=== PATIENT | male | born 1980 ===

== ENCOUNTER 2017-07-12 12:13 | Inpatient (IN) | payer OTHER ==
[2017-07-12] MEDS ORDERED: Dextrose 50% SYRINGE Inj (50 ml) ONE ×2 (12:46→12:48)
[2017-07-12] MEDS ORDERED: Dextrose 50% SYRINGE Inj (50 ml) IVP STA ×2 (12:51→12:52)
[2017-07-12] MEDS ORDERED: Sodium Chloride 0.9% 1,000 ML IV STA ×4 (12:52→17:58)
--- NOTE | 2017-07-12 13:09 | ED PDOC ---
HPI: Psych/Substance Abuse Time Seen by Provider: 07/12/17 12:43 Chief Complaint (Nursing): Substance Abuse Chief Complaint (Provider): Substance abuse ED Caveat: Intoxicated History Per: Patient, Other History/Exam Limitations: intoxication Onset/Duration Of Symptoms: Days (x1 prior to arrival) Current Symptoms Are (Timing): Still Present Additional History Per: EMS Additional Complaint(s): Star Bautista is a 36 year old male, with a past history of hypertension, alcohol and drug abuse, who was brought to the emergency department by EMS for public intoxication prior to arrival. EMS report [place] was [place] the [place]. Patient is here with his girlfriend, who states they got in an argument last night and report he didn't eat anything last night or this morning. Patient admits to drinking half a pint of vodka. Full HPI unobtainable due to condition. PMD: None provided. Past Medical History Reviewed: Historical Data, Nursing Documentation, Vital Signs Vital Signs: Last Vital Signs Temp 96.1 F L 07/12/17 12:30 Pulse 77 07/12/17 12:30 Resp 16 07/12/17 12:30 BP 118/84 07/12/17 12:30 Pulse Ox 98 07/12/17 12:30 - Family History Family History: States: Unknown Family Hx - Social History Alcohol: > 2 Drinks/Day - Home Medications Home Medications: Ambulatory Orders Medication Instructions Recorded Acamprosate Calcium 2 cap PO TID 07/12/17 Bupropion HCl [Wellbutrin Sr] 150 mg PO Q12H 07/12/17 Dextroamphetamine/Amphetamine 20 mg PO DAILY 07/12/17 [Adderall Xr 20 mg Capsule] Naltrexone [Revia] 50 mg PO DAILY 07/12/17 Propranolol [Inderal] 10 mg PO TID 07/12/17 Valerian Root 1 cap PO DAILY 07/12/17 Vitamin B Complex 1 tab PO DAILY 07/12/17 traZODone [Desyrel] 50 mg PO HS 07/12/17 - Allergies Allergies/Adverse Reactions: Allergies Allergy/AdvReac Type Severity Reaction Status Date / Time No Known Allergies Allergy Verified 07/12/17 12:29 Review of Systems ROS Statement: Except As Marked, All Systems Reviewed And Found Negative Constitutional: Positive for: Other (alcohol intoxication) Psych: Negative for: Suicidal ideation Physical Exam - Reviewed Nursing Documentation Reviewed: Yes Vital Signs Reviewed: Yes - Physical Exam Appears: Positive for: No Acute Distress Head Exam: Positive for: ATRAUMATIC, NORMAL INSPECTION, NORMOCEPHALIC Skin: Positive for: Normal Color, Warm, Dry Eye Exam: Positive for: Normal appearance Neck: Positive for: Normal, Painless ROM, Supple Respiratory: Positive for: Normal Breath Sounds. Negative for: Respiratory Distress Extremity: Positive for: Normal ROM. Negative for: Pedal Edema, Deformity Neurologic/Psych: Negative for: Motor/Sensory Deficits Comments: arouses to verbal stimuli. Atraumatic. Denies drug use. - Laboratory Results Result Diagrams: 07/13/17 04:30 07/13/17 04:30 - ECG O2 Sat by Pulse Oximetry: 98 (RA) Pulse Ox Interpretation: Normal Medical Decision Making Medical Decision Making: Initial Impression: Alcohol Intoxication Initial Plan: --EKG --Alcohol serum --Comp Metabolic Panel --Drug screen, Urine --Urine dipstick --CBC w/ differential --Dextrose 50% Inj 50 ml IVP --NS IV 1,000ml @ 1,000 mls/hr --reevaluation Scribe Attestation: Documented by Kamari Nixon & Shelia Gaytan, acting as a scribe for Geri Villa MD Provider Scribe Attestation: All medical record entries made by the Scribe were at my direction and personally dictated by me. I have reviewed the chart and agree that the record accurately reflects my personal performance of the history, physical exam, medical decision making, and the department course for this patient. I have also personally directed, reviewed, and agree with the discharge instructions and disposition. ED OBSERVATION Date of observation admission: 07/12/17 Time of observation admission: 13:10 - Observation admission statement Patient is placed on observation because of need: for resolution of acute symptoms - Goals of Observation Goals of Observation: Clinical sobriety - Progress Note Time:: 13:15 Observation Progress Note: Patient remains intoxicated with unsteady gait and slurred speech Progress Note: 07/12/17 Time: 14:45 --Patient is resting. Vital signs are stable. Time: 16:15 --Patient is resting comfortably. No acute changes, vitals are stable. Time: 17:45 --Patient is resting comfortably. --Blood pressure had increased to 102 systolic but despite fluids, has decreased to 90. Code sepsis initiated. Time: 17:50 --Discussed case with blue line trimmer, Dr. Rodriguez, who accepted patient to ICU Time: 19:00 --Patient refusing central line placement --Levophed changed to Dopamine drip for blood pressure Disposition - Clinical Impression Clinical Impression: Septic shock - Patient ED Disposition Is Patient to be Admitted: Yes - Disposition Disposition Time: 12:52 Condition: GUARDED - Pt Status Changed To: Hospital Disposition Of: Inpatient - Admit Certification Admit to Inpatient:: After my assessment, the patient will require hospitalization for at least two midnights. This is because of the severity of symptoms shown, intensity of services needed, and/or the medical risk in this patient being treated as an outpatient. - POA Present On Arrival: None Core Measure Indicators: Code Sepsis Lumbar Puncture - Time Out Time Out: Side verified
[2017-07-12 13:10] LABS: BASO # 0.1 K/uL (0.0-0.2); BASO % 0.5 % (0.0-2.0); EOS # 0.1 K/uL (0.0-0.7); EOS % 0.4 % (0.0-4.0); HEMATOCRIT 48.8 % (35.0-51.0); LYMPH # 3.5 K/uL (1.0-4.3); LYMPH % 11.7 % (20.0-40.0); MEAN CELL VOLUME 87.7 fl (80.0-94.0); MEAN CORPUSCULAR HEMOGLOBIN 29.3 pg (27.0-31.0); MEAN CORPUSCULAR HGB CONC 33.4 g/dL (33.0-37.0); MEAN PLATELET VOLUME 7.8 fl (7.2-11.7); MONO # 0.9 K/uL (0.0-0.8); MONO % 2.9 % (0.0-10.0); NEUT # 25.4 K/uL (1.8-7.0); NEUT % 84.5 % (50.0-75.0); NRBC % 0.1 % (0.0-0.0); RED CELL DISTRIBUTION WIDTH 13.2 % (11.5-14.5)
[2017-07-12 13:20] LABS: ALB/GLOB RATIO 1.3 (1.0-2.1); ALCOHOL SERUM 258 mg/dl (0-10); ALKALINE PHOSPHATASE 121 U/L (38-126); ALT/SGPT 32 U/L (21-72); AST/SGOT 41 U/L (17-59); BILIRUBIN,TOTAL 0.6 mg/dl (0.2-1.3); BLOOD UREA NITROGEN 13 mg/dl (9-20); CALCIUM 9.5 mg/dL (8.4-10.2); CARBON DIOXIDE 21 mmol/L (22-30); CHLORIDE 107 mmol/L (98-107); GFR AFRICAN-AMERICAN > 60; GLUCOSE,RANDOM 43 mg/dL (75-110); POTASSIUM 3.8 MMOL/L (3.6-5.0); SODIUM 150 mmol/l (132-148); TOTAL PROTEIN 8.4 G/DL (6.3-8.2)
[2017-07-12 14:09] LABS: VENOUS BLOOD GAS BASE EXCESS -3.9 mmol/L (0.0-2.0); VENOUS BLOOD GAS PCO2 64 mmHg (40-60); VENOUS BLOOD PH 7.21 (7.32-7.43)
--- NOTE | 2017-07-12 14:09 | CT ---
PROCEDURE: CT HEAD WITHOUT CONTRAST. HISTORY: Found in park COMPARISON: None available. TECHNIQUE: Axial computed tomography images were obtained through the head/brain without intravenous contrast. Radiation dose: Total exam DLP = 863.33 mGy-cm. This CT exam was performed using one or more of the following dose reduction techniques: Automated exposure control, adjustment of the mA and/or kV according to patient size, and/or use of iterative reconstruction technique. FINDINGS: HEMORRHAGE: No intracranial hemorrhage. BRAIN: No mass effect or edema. No atrophy or chronic microvascular ischemic changes. VENTRICLES: Unremarkable. No hydrocephalus. CALVARIUM: Unremarkable. PARANASAL SINUSES: Unremarkable as visualized. No significant inflammatory changes. MASTOID AIR CELLS: Unremarkable as visualized. No inflammatory changes. OTHER FINDINGS: None. IMPRESSION: Normal CT of the Head. No intracranial mass, hemorrhage or evidence of acute infarct.
[2017-07-12 14:14] LABS: RBC URINE 5 /hpf (0-3); URINE BILIRUBIN NEGATIVE (NEGATIVE); URINE BLOOD NEGATIVE (NEGATIVE); URINE COLOR YELLOW (YELLOW); URINE GLUCOSE (UA) >=500 mg/dL (Normal); URINE KETONE 20 mg/dL (NEGATIVE); URINE LEUKOCYTE ESTERASE NEG Leu/uL (Negative); URINE PROTEIN 30 mg/dL (NEGATIVE); URINE UROBILINOGEN 0.2-1.0 mg/dL (0.2-1.0); WBC URINE 1 /hpf (0-5)
[2017-07-12] MEDS ORDERED: ACYCLOVIR IV STA (14:26)
[2017-07-12] MEDS ORDERED: SODIUM CHLORIDE 0.9% IV STA (14:26)
[2017-07-12] MEDS ORDERED: Vancomycin 1 g Inj ONE (14:30)
[2017-07-12] MEDS ORDERED: Lidocaine 1% Inj (20ml) ONE (14:34)
--- NOTE | 2017-07-12 14:45 | RAD ---
HISTORY: Leukocytosis COMPARISON: No prior. FINDINGS: LUNGS: No active pulmonary disease. PLEURA: No significant pleural effusion identified, no pneumothorax apparent. CARDIOVASCULAR: Normal. OSSEOUS STRUCTURES: No significant abnormalities. VISUALIZED UPPER ABDOMEN: Normal. OTHER FINDINGS: None. IMPRESSION: No active disease.
[2017-07-12 17:22] LABS: FLUID TYPE SPINAL FLUID
[2017-07-12 17:23] LABS: CSF COMMENT CLEAR; CSF NEUTROPHIL 2 % (0-0); CSF TOTAL COUNT 8 (0-0)
[2017-07-12] MEDS ORDERED: Multivitamin (MVI) 10 ML, Thiamine 100 MG, Folic Acid 1 MG in Sodium Chloride 0.9% 1,00... IV ONE (17:24)
[2017-07-12 17:56] LABS: VENOUS BLOOD GAS BASE EXCESS -3.9 mmol/L (0.0-2.0); VENOUS BLOOD GAS PCO2 43 mmHg (40-60); VENOUS BLOOD PH 7.32 (7.32-7.43)
[2017-07-12] MEDS ORDERED: DOPamine 400mg/250ml D5W 400 MG/250 ML BAG IV ONE ×2 (19:07→19:26)
[2017-07-12 20:12] LABS: BASO % 0.4 % (0.0-2.0); EOS % 0.4 % (0.0-4.0); HEMATOCRIT 40.2 % (35.0-51.0); LYMPH # 1.3 K/uL (1.0-4.3); LYMPH % 16.7 % (20.0-40.0); MEAN CELL VOLUME 88.6 fl (80.0-94.0); MEAN CORPUSCULAR HEMOGLOBIN 29.4 pg (27.0-31.0); MEAN CORPUSCULAR HGB CONC 33.2 g/dL (33.0-37.0); MEAN PLATELET VOLUME 7.9 fl (7.2-11.7); MONO # 0.4 K/uL (0.0-0.8); MONO % 5.1 % (0.0-10.0); NEUT # 6.2 K/uL (1.8-7.0); NEUT % 77.4 % (50.0-75.0); RED CELL DISTRIBUTION WIDTH 13.1 % (11.5-14.5)
[2017-07-12 20:25] LABS: ALB/GLOB RATIO 1.3 (1.0-2.1); ALKALINE PHOSPHATASE 75 U/L (38-126); ALT/SGPT 27 U/L (21-72); AST/SGOT 26 U/L (17-59); BILIRUBIN,TOTAL 0.1 mg/dl (0.2-1.3); BLOOD UREA NITROGEN 9 mg/dl (9-20); CALCIUM 7.8 mg/dL (8.4-10.2); CARBON DIOXIDE 19 mmol/L (22-30); CHLORIDE 112 mmol/L (98-107); GFR AFRICAN-AMERICAN > 60; GLUCOSE,RANDOM 121 mg/dL (75-110); SODIUM 144 mmol/l (132-148); TOTAL PROTEIN 5.9 G/DL (6.3-8.2)
[2017-07-12 20:28] LABS: POTASSIUM 3.4 MMOL/L (3.6-5.0)
[2017-07-12 23:50] VITALS: BMI 27.6
--- NOTE | 2017-07-13 00:48 | CARD ---
APPROVED REPORT EKG Measurement Heart [id number] <Conclusion> Sinus rhythm with occasional premature ventricular complexes Prolonged QT Abnormal ECG
[2017-07-13] MEDS ORDERED: Sodium Chloride 0.9% 1,000 ML IV SCH (01:45)
[2017-07-13 05:25] LABS: BLOOD UREA NITROGEN 8 mg/dl (9-20); CALCIUM 8.5 mg/dL (8.4-10.2); CARBON DIOXIDE 23 mmol/L (22-30); CHLORIDE 107 mmol/L (98-107); GFR AFRICAN-AMERICAN > 60; GLUCOSE,RANDOM 89 mg/dL (75-110); POTASSIUM 3.7 MMOL/L (3.6-5.0); SODIUM 140 mmol/l (132-148)
[2017-07-13 05:26] LABS: BASO % 0.3 % (0.0-2.0); EOS # 0.2 K/uL (0.0-0.7); EOS % 1.8 % (0.0-4.0); LYMPH # 1.5 K/uL (1.0-4.3); LYMPH % 13.9 % (20.0-40.0); MEAN CELL VOLUME 88.3 fl (80.0-94.0); MEAN CORPUSCULAR HEMOGLOBIN 29.3 pg (27.0-31.0); MEAN CORPUSCULAR HGB CONC 33.2 g/dL (33.0-37.0); MONO # 1.1 K/uL (0.0-0.8); MONO % 10.4 % (0.0-10.0); NEUT # 7.8 K/uL (1.8-7.0); NEUT % 73.6 % (50.0-75.0); NRBC % 0.8 % (0.0-0.0); RED CELL DISTRIBUTION WIDTH 13.3 % (11.5-14.5); WHITE BLOOD COUNT 10.6 K/uL (4.8-10.8)
--- NOTE | 2017-07-13 07:48 | CON ---
CRITICAL CARE CONSULT NOTE DATE: 07/12/2017 HISTORY OF PRESENT ILLNESS: The patient in ER, being admitted to ICU. Case was discussed with ER physician. Events in the ER noted. Past medical and surgical history noted. Patient's at the bedside. Discussed with and patient. Mr. Star Bautista is a 36-year-old male with medical history significant for alcohol and drug abuse in the past, alcohol-related seizure disorder, remained seizure-free for a while, was found in a park intoxicated and unresponsive. EMS was called. Patient was brought to emergency room. In the ER, patient's vital signs showed temperature of 96.1, heart rate 77, respiratory rate 16, blood pressure 118/84, pulse oximetry 98. Initial blood sugar was noted to be low and patient was given D50. Patient was noted to be much more arousable. Code sepsis was called and patient was given 3 liters of IV fluid with blood pressure returned to normal 118/84. MEDICATIONS: Patient's medications at home include Wellbutrin 150 mg q.12, Adderall XR 20 mg daily, naltrexone 50 mg p.o. daily, propranolol 10 mg three times daily, vitamin B complex one tablet daily, and trazodone 50 mg p.o. at bedtime. ALLERGIES: NONE DOCUMENTED. FAMILY HISTORY: Noncontributory. SOCIAL HISTORY: As noted. Lives with his girlfriend. PHYSICAL EXAMINATION: VITAL SIGNS: Temperature 96.1; repeated rectally, 94.4, pulse rate 74, blood pressure 92/57 with mean arterial pressure 68, respiratory rate 20, oxygen saturations 98%. HEAD, EYES, EARS, NOSE, AND THROAT: Pupils are reactive. Conjunctivae are pink. Sclerae white. NECK: Supple. Trachea central. CHEST: Bilateral breath sounds, clear to auscultation. HEART: Rhythm regular. S1 and S2 normal in intensity. No S3, S4, or gallop. No audible murmur. ABDOMEN: Bowel sounds present, soft. Liver and spleen not palpable. GENITOURINARY: Bladder not distended. SKIN: Without any stigmata of IV drug use. NEUROLOGIC: Alert and oriented to name, place, and time. No cranial nerve deficits. No motor deficits. No sensory impairment. Plantars are flexor. LABORATORY DATA: WBC 30, hemoglobin 16.3, hematocrit 48.8, platelet count 391,000, neutrophils 84.5, lymphocytes 11.7, monocytes 2.9. ABG; pH 7.32, pCO2 of 43, pO2 of 64, oxygen saturations 96% on room air consistent with hypoxemia with wide A-a gradient. VBG shows lactate 3.1. SMA-7; sodium 150, chloride of 107, CO2 of 21, blood urea nitrogen 13, creatinine of 0.9, glucose 43, calcium 9.5, total bilirubin 0.6. AST 41, ALT 32, alkaline phosphatase 121. CK 82, total protein 8.4, albumin 4.8, potassium 3.3. Urine analysis; rbc 5, nitrite negative. CSF from spinal fluid, volume 2 mL, clear, colorless, WBC 0, RBC 11, total red cell count 8, neutrophils 2, lymphocytes 6, glucose 75, total protein 50. Microbiology; blood culture, and urine culture are sent, report pending. Chest x-ray shows no acute disease. Head CT, no evidence of acute infarct or hemorrhage. Electrocardiogram; normal sinus rhythm, normal electrical axis, no ST-T changes noted. IMPRESSION: A 36-year-old male with history of substance abuse including alcohol and was reportedly not eating for the last two days and drinking alcohol, found on the park unresponsive by the emergency medical service. On arrival to the emergency room, patient was noted to have blood glucose of 34, given dextrose with subsequent improvement in the mental status. Patient was also noted to have hypothermia. Patient, because of the change in the mental status, had spinal tap done, study inconclusive. Patient has history of seizure disorder in the past related to alcohol, unclear whether patient had seizure and was in a postictal state; however, given hypothermia, hypoglycemia, and given the lactate, Code Sepsis was called. Patient was given 3 liters intravenous fluid, remains with a low blood pressure, has history of hypertension, so plan to continue antibiotic, already initiated in the emergency room. Infectious Disease evaluation. Repeat chest x-ray. Follow up with blood and urine culture. Continue gastrointestinal prophylaxis. Continue banana bag at 125 mL per hour. Paolo Rodriguez MD
[2017-07-13 08:35] VITALS: BP 117/66; PULSE 82; RESP 19; TEMP 98.4
[2017-07-13] MEDS ORDERED: Enoxaparin 40 mg Syringe SC SCH (09:00)
[2017-07-13] MEDS ORDERED: cefTRIAXone 2 GM in Sodium Chloride 0.9% 100 ML IVPB SCH (09:00)
[2017-07-13] MEDS ORDERED: Azithromycin 500 MG in Sodium Chloride 0.9% 250 ML IVPB SCH (09:00)
[2017-07-13 09:51] VITALS: O2SAT 98
[2017-07-13] MEDS ORDERED: Dextrose 5%/0.9% NS 1,000 ML IV SCH (10:15)
[2017-07-13] MEDS ORDERED: Pantoprazole 40 mg EC Tab PO SCH (10:15)
--- NOTE | 2017-07-13 11:19 | CP.CCUPN ---
<Yasmani Camacho - Last Filed: 07/13/17 13:18> CCU Subjective - Physician Review Events Since Last Encounter (Free Text): 07/13/17 11:05 Patient seen this morning. Not in acute distress, no events overnight, patient laying comfortably in bed and coherently responding to questions. Patient feels better compared to yesterday. Patient reports history of alcoholism that has been controlled over the past 2 years due to complicated divorce and unemployment. He reports that he does not drink regularly and takes medication for his alcoholism. The patient reports that he was underline a deadline and had an argument with his girlfriend which drove him to drink a pint of vodka. The patient also reports bouts with anorexia and states that he has not eaten properly over the past month. He reports that he has not eaten in past few days. However, this morning he reports he has an appetite and is eating. He denies any symptoms of alcohol withdrawal, history of seizures, tremors, agitation, palpitation, headaches, chest pain, nausea, vomiting, abdominal pain , recent illness. Critical Care Time Spent (in minutes): 35 CCU Objective - Vital Signs / Intake & Output Vital Signs (Last 4 hours): Vital Signs Temp Pulse Resp BP Pulse Ox 07/13/17 09:51 98 07/13/17 08:00 98.4 F 82 19 117/66 100 Intake and Output (Last 8hrs): Intake & Output 07/12/17 07/13/17 07/13/17 22:59 06:59 14:59 Intake Total 200 1700 700 Output Total 1100 1075 Balance 200 600 -375 Weight 166 lb Intake: IV 100 1100 100 Intake, Piggyback 600 Oral 100 600 Output: Urine 1100 1075 Urine, Voided 1100 1075 Other: # Voids Urine, Voided 1 1 # Bowel Movements 1 - Physical Exam Head: Positive for: Atraumatic, Normocephalic Pupils: Positive for: PERRL Extroacular Muscles: Positive for: EOMI Mouth: Positive for: Moist Mucous Membranes Respiratory/Chest: Positive for: Clear to Auscultation, Good Air Exchange. Negative for: Respiratory Distress, Accessory Muscle Use, Wheezes Cardiovascular: Positive for: Regular Rate and Rhythm, Normal S1, S2, Peripheal Pulses Present. Negative for: Murmurs, Irregular Rhythm, Tachycardic Abdomen: Positive for: Normal Bowel Sounds. Negative for: Tenderness, Distention Upper Extremity: Positive for: Normal Inspection. Negative for: Cyanosis, Edema Neurological: Positive for: GCS=15, CN II-XII Intact, Speech Normal, Motor Func Grossly Intact, Normal Sensory Function Skin: Positive for: Warm, Dry, Normal Color. Negative for: Rashes Psychiatric: Positive for: Alert, Oriented x 3. Negative for: Anxious, Agitated , Delusional, Hallucinations - Medications Active Medications: Active Medications Generic Name Dose Route Start Last Admin Trade Name Freq PRN Reason Stop Dose Admin Enoxaparin Sodium 40 mg 07/13/17 09:00 07/13/17 09:48 Lovenox SC 40 mg DAILY ANJELICA Administration Protocol Folic Acid 1 mg 07/13/17 10:15 Folic Acid PO DAILY [facility] Norepinephrine Bitartrate 4 mg 254 mls @ 19.05 mls/hr 07/12/17 18:45 18:40 / Dextrose IV 19.05 mls/hr .[id number] ANJELICA Administration Protocol 5 MCG/MIN Vancomycin HCl 1 gm/ Sodium 250 mls @ 166.667 mls/hr 07/13/17 09:00 07/13/17 09:47 Chloride IVPB 166.667 mls/hr DAILY ANJELICA Administration Azithromycin 500 mg/ Sodium 250 mls @ 250 mls/hr 07/13/17 09:00 07/13/17 09: 51 Chloride IVPB 250 mls/hr DAILY ANJELICA Administration Ceftriaxone Sodium 1 gm/ 100 mls @ 100 mls/hr 07/13/17 09:00 07/13/17 09:46 Sodium Chloride IVPB 100 mls/hr Q12 ANJELICA Administration Dextrose/Sodium Chloride 1,000 mls @ 125 mls/hr 07/13/17 10:15 Dextrose 5%/0.9% Ns 1000 Ml IV 07/14/17 10:15 .Q8H ANJELICA Pantoprazole Sodium 40 mg 07/13/17 09:00 07/13/17 09:46 Protonix Inj IVP 40 mg DAILY ANJELICA Administration Pantoprazole Sodium 40 mg 07/13/17 10:15 Protonix Ec Tab PO DAILY [facility] Thiamine HCl 50 mg 07/13/17 10:15 Vitamin B1 Tab PO DAILY ANJELICA - Patient Studies Lab Studies: Microbiology Studies 07/12/17 15:35 Gram Stain - Final Cerebral Spinal Fluid Lab Studies 07/13/17 07/13/17 07/13/17 Range/Units 04:30 04:30 04:30 WBC 10.6 (4.8-10.8) K/uL RBC 4.65 (4.40-5.90) Mil/uL Hgb 13.6 (12.0-18.0) g/dL Hct 41.0 (35.0-51.0) % MCV 88.3 (80.0-94.0) fl MCH 29.3 (27.0-31.0) pg MCHC 33.2 (33.0-37.0) g/dL RDW 13.3 (11.5-14.5) % Plt Count 249 (130-400) K/uL MPV 8.0 (7.2-11.7) fl Neut % (Auto) 73.6 (50.0-75.0) % Lymph % (Auto) 13.9 L (20.0-40.0) % [place] % (Auto) 10.4 H (0.0-10.0) % Eos % (Auto) 1.8 (0.0-4.0) % Baso % (Auto) 0.3 (0.0-2.0) % Neut # 7.8 H (1.8-7.0) K/uL Lymph # 1.5 (1.0-4.3) K/uL [place] # 1.1 H (0.0-0.8) K/uL Eos # 0.2 (0.0-0.7) K/uL Baso # 0.0 (0.0-0.2) K/uL pO2 (30-55) mm/Hg VBG pH (7.32-7.43) VBG pCO2 (40-60) mmHg VBG HCO3 mmol/L VBG Total CO2 (22-28) mmol/L VBG O2 Sat (Calc) (40-65) % VBG Base Excess (0.0-2.0) mmol/L VBG Potassium (3.6-5.2) mmol/L Glucose (75-110) mg/dL Lactate (0.7-2.1) mmol/L FiO2 % Sodium 140 (132-148) mmol/l Potassium 3.7 (3.6-5.0) MMOL/L Chloride 107 (98-107) mmol/L Carbon Dioxide 23 (22-30) mmol/L Anion Gap 14 (10-20) BUN 8 L (9-20) mg/dl Creatinine 0.7 L (0.8-1.5) mg/dL Est GFR ( Amer) > 60 Est GFR (Non-Af Amer) > 60 POC Glucose (mg/dL) (65-110) mg/dL Random Glucose 89 (75-110) mg/dL Lactic Acid 0.8 (0.7-2.1) MMOL/L Calcium 8.5 (8.4-10.2) mg/dL Total Bilirubin (0.2-1.3) mg/dl AST (17-59) U/L ALT (21-72) U/L Alkaline Phosphatase (38-126) U/L Total Creatine Kinase (55-170) U/L Total Protein (6.3-8.2) G/DL Albumin (3.5-5.0) g/dL Globulin (2.2-3.9) gm/dL Albumin/Globulin Ratio (1.0-2.1) Venous Blood Potassium (3.6-5.2) mmol/L Urine Color (YELLOW) Urine Clarity (Clear) Urine pH (5.0-8.0) Ur Specific [place] (1.003-1.030) Urine Protein (NEGATIVE) mg/dL Urine Glucose (UA) (Normal) mg/dL Urine Ketones (NEGATIVE) mg/dL Urine Blood (NEGATIVE) Urine Nitrate (NEGATIVE) Urine Bilirubin (NEGATIVE) Urine Urobilinogen (0.2-1.0) mg/dL Ur Leukocyte Esterase (Negative) Page/uL Urine RBC (Auto) (0-3) /hpf Urine Microscopic WBC (0-5) /hpf Hyaline Casts (0-2) /hpf Fluid Type CSF Volume (0-1) mL CSF Appearance (CLEAR) CSF WBC (0.0-5.0) /mm3 CSF RBC (0.0-0.0) /mm3 CSF Total Cell Counted (0-0) CSF Neutrophils (0-0) % CSF Lymphocytes (0-0) % CSF Monos/Macrophages (0-0) % CSF Comment CSF Glucose (40-70) mg/dL CSF Total Protein (12-60) mg/dL Urine Opiates Screen (NEGATIVE) Urine Methadone Screen (NEGATIVE) Ur Barbiturates Screen (NEGATIVE) Ur Phencyclidine Scrn (NEGATIVE) Ur Amphetamines Screen (NEGATIVE) U Benzodiazepines Scrn (NEGATIVE) U Oth Cocaine Metabols (NEGATIVE) U Cannabinoids Screen (NEGATIVE) Alcohol, Quantitative (0-10) mg/dl 07/12/17 07/12/17 07/12/17 Range/Units 23:43 22:39 20:02 WBC (4.8-10.8) K/uL RBC (4.40-5.90) Mil/uL Hgb (12.0-18.0) g/dL Hct (35.0-51.0) % MCV (80.0-94.0) fl MCH (27.0-31.0) pg MCHC (33.0-37.0) g/dL RDW (11.5-14.5) % Plt Count (130-400) K/uL MPV (7.2-11.7) fl Neut % (Auto) (50.0-75.0) % Lymph % (Auto) (20.0-40.0) % [place] % (Auto) (0.0-10.0) % Eos % (Auto) (0.0-4.0) % Baso % (Auto) (0.0-2.0) % Neut # (1.8-7.0) K/uL Lymph # (1.0-4.3) K/uL [place] # (0.0-0.8) K/uL Eos # (0.0-0.7) K/uL Baso # (0.0-0.2) K/uL pO2 (30-55) mm/Hg VBG pH (7.32-7.43) VBG pCO2 (40-60) mmHg VBG HCO3 mmol/L VBG Total CO2 (22-28) mmol/L VBG O2 Sat (Calc) (40-65) % VBG Base Excess (0.0-2.0) mmol/L VBG Potassium (3.6-5.2) mmol/L Glucose (75-110) mg/dL Lactate (0.7-2.1) mmol/L FiO2 % Sodium 144 (132-148) mmol/l Potassium 3.4 L (3.6-5.0) MMOL/L Chloride 112 H (98-107) mmol/L Carbon Dioxide 19 L (22-30) mmol/L Anion Gap 16 (10-20) BUN 9 (9-20) mg/dl Creatinine 0.7 L (0.8-1.5) mg/dL Est GFR ( Amer) > 60 Est GFR (Non-Af Amer) > 60 POC Glucose (mg/dL) 75 64 L (65-110) mg/dL Random Glucose 121 H (75-110) mg/dL Lactic Acid (0.7-2.1) MMOL/L Calcium 7.8 L (8.4-10.2) mg/dL Total Bilirubin 0.1 L (0.2-1.3) mg/dl AST 26 (17-59) U/L ALT 27 (21-72) U/L Alkaline Phosphatase 75 (38-126) U/L Total Creatine Kinase (55-170) U/L Total Protein 5.9 L (6.3-8.2) G/DL Albumin 3.3 L D (3.5-5.0) g/dL Globulin 2.5 (2.2-3.9) gm/dL Albumin/Globulin Ratio 1.3 (1.0-2.1) Venous Blood Potassium (3.6-5.2) mmol/L Urine Color (YELLOW) Urine Clarity (Clear) Urine pH (5.0-8.0) Ur Specific [place] (1.003-1.030) Urine Protein (NEGATIVE) mg/dL Urine Glucose (UA) (Normal) mg/dL Urine Ketones (NEGATIVE) mg/dL Urine Blood (NEGATIVE) Urine Nitrate (NEGATIVE) Urine Bilirubin (NEGATIVE) Urine Urobilinogen (0.2-1.0) mg/dL Ur Leukocyte Esterase (Negative) Page/uL Urine RBC (Auto) (0-3) /hpf Urine Microscopic WBC (0-5) /hpf Hyaline Casts (0-2) /hpf Fluid Type CSF Volume (0-1) mL CSF Appearance (CLEAR) CSF WBC (0.0-5.0) /mm3 CSF RBC (0.0-0.0) /mm3 CSF Total Cell Counted (0-0) CSF Neutrophils (0-0) % CSF Lymphocytes (0-0) % CSF Monos/Macrophages (0-0) % CSF Comment CSF Glucose (40-70) mg/dL CSF Total Protein (12-60) mg/dL Urine Opiates Screen (NEGATIVE) Urine Methadone Screen (NEGATIVE) Ur Barbiturates Screen (NEGATIVE) Ur Phencyclidine Scrn (NEGATIVE) Ur Amphetamines Screen (NEGATIVE) U Benzodiazepines Scrn (NEGATIVE) U Oth Cocaine Metabols (NEGATIVE) U Cannabinoids Screen (NEGATIVE) Alcohol, Quantitative (0-10) mg/dl 07/12/17 07/12/17 07/12/17 Range/Units 20:02 17:41 17:34 WBC 8.0 D (4.8-10.8) K/uL RBC 4.54 (4.40-5.90) Mil/uL Hgb 13.3 D (12.0-18.0) g/dL Hct 40.2 (35.0-51.0) % MCV 88.6 (80.0-94.0) fl MCH 29.4 (27.0-31.0) pg MCHC 33.2 (33.0-37.0) g/dL RDW 13.1 (11.5-14.5) % Plt Count 259 D (130-400) K/uL MPV 7.9 (7.2-11.7) fl Neut % (Auto) 77.4 H (50.0-75.0) % Lymph % (Auto) 16.7 L (20.0-40.0) % [place] % (Auto) 5.1 (0.0-10.0) % Eos % (Auto) 0.4 (0.0-4.0) % Baso % (Auto) 0.4 (0.0-2.0) % Neut # 6.2 (1.8-7.0) K/uL Lymph # 1.3 (1.0-4.3) K/uL [place] # 0.4 (0.0-0.8) K/uL Eos # 0.0 (0.0-0.7) K/uL Baso # 0.0 (0.0-0.2) K/uL pO2 64 H (30-55) mm/Hg VBG pH 7.32 (7.32-7.43) VBG pCO2 43 (40-60) mmHg VBG HCO3 21.7 mmol/L VBG Total CO2 23.5 (22-28) mmol/L VBG O2 Sat (Calc) 96.0 H (40-65) % VBG Base Excess -3.9 L (0.0-2.0) mmol/L VBG Potassium 3.3 L (3.6-5.2) mmol/L Glucose 140 H (75-110) mg/dL Lactate 2.4 H (0.7-2.1) mmol/L FiO2 21.0 % Sodium 140.0 (132-148) mmol/l Potassium (3.6-5.0) MMOL/L Chloride 110.0 H (98-107) mmol/L Carbon Dioxide (22-30) mmol/L Anion Gap (10-20) BUN (9-20) mg/dl Creatinine (0.8-1.5) mg/dL Est GFR ( Amer) Est GFR (Non-Af Amer) POC Glucose (mg/dL) (65-110) mg/dL Random Glucose (75-110) mg/dL Lactic Acid (0.7-2.1) MMOL/L Calcium (8.4-10.2) mg/dL Total Bilirubin (0.2-1.3) mg/dl AST (17-59) U/L ALT (21-72) U/L Alkaline Phosphatase (38-126) U/L Total Creatine Kinase 82 (55-170) U/L Total Protein (6.3-8.2) G/DL Albumin (3.5-5.0) g/dL Globulin (2.2-3.9) gm/dL Albumin/Globulin Ratio (1.0-2.1) Venous Blood Potassium 3.3 L (3.6-5.2) mmol/L Urine Color (YELLOW) Urine Clarity (Clear) Urine pH (5.0-8.0) Ur Specific [place] (1.003-1.030) Urine Protein (NEGATIVE) mg/dL Urine Glucose (UA) (Normal) mg/dL Urine Ketones (NEGATIVE) mg/dL Urine Blood (NEGATIVE) Urine Nitrate (NEGATIVE) Urine Bilirubin (NEGATIVE) Urine Urobilinogen (0.2-1.0) mg/dL Ur Leukocyte Esterase (Negative) Page/uL Urine RBC (Auto) (0-3) /hpf Urine Microscopic WBC (0-5) /hpf Hyaline Casts (0-2) /hpf Fluid Type CSF Volume (0-1) mL CSF Appearance (CLEAR) CSF WBC (0.0-5.0) /mm3 CSF RBC (0.0-0.0) /mm3 CSF Total Cell Counted (0-0) CSF Neutrophils (0-0) % CSF Lymphocytes (0-0) % CSF Monos/Macrophages (0-0) % CSF Comment CSF Glucose (40-70) mg/dL CSF Total Protein (12-60) mg/dL Urine Opiates Screen (NEGATIVE) Urine Methadone Screen (NEGATIVE) Ur Barbiturates Screen (NEGATIVE) Ur Phencyclidine Scrn (NEGATIVE) Ur Amphetamines Screen (NEGATIVE) U Benzodiazepines Scrn (NEGATIVE) U Oth Cocaine Metabols (NEGATIVE) U Cannabinoids Screen (NEGATIVE) Alcohol, Quantitative (0-10) mg/dl 07/12/17 07/12/17 07/12/17 Range/Units 17:27 17:13 15:55 WBC (4.8-10.8) K/uL RBC (4.40-5.90) Mil/uL Hgb (12.0-18.0) g/dL Hct (35.0-51.0) % MCV (80.0-94.0) fl MCH (27.0-31.0) pg MCHC (33.0-37.0) g/dL RDW (11.5-14.5) % Plt Count (130-400) K/uL MPV (7.2-11.7) fl Neut % (Auto) (50.0-75.0) % Lymph % (Auto) (20.0-40.0) % [place] % (Auto) (0.0-10.0) % Eos % (Auto) (0.0-4.0) % Baso % (Auto) (0.0-2.0) % Neut # (1.8-7.0) K/uL Lymph # (1.0-4.3) K/uL [place] # (0.0-0.8) K/uL Eos # (0.0-0.7) K/uL Baso # (0.0-0.2) K/uL pO2 (30-55) mm/Hg VBG pH (7.32-7.43) VBG pCO2 (40-60) mmHg VBG HCO3 mmol/L VBG Total CO2 (22-28) mmol/L VBG O2 Sat (Calc) (40-65) % VBG Base Excess (0.0-2.0) mmol/L VBG Potassium (3.6-5.2) mmol/L Glucose (75-110) mg/dL Lactate (0.7-2.1) mmol/L FiO2 % Sodium (132-148) mmol/l Potassium (3.6-5.0) MMOL/L Chloride (98-107) mmol/L Carbon Dioxide (22-30) mmol/L Anion Gap (10-20) BUN (9-20) mg/dl Creatinine (0.8-1.5) mg/dL Est GFR ( Amer) Est GFR (Non-Af Amer) POC Glucose (mg/dL) 157 H (65-110) mg/dL Random Glucose (75-110) mg/dL Lactic Acid (0.7-2.1) MMOL/L Calcium (8.4-10.2) mg/dL Total Bilirubin (0.2-1.3) mg/dl AST (17-59) U/L ALT (21-72) U/L Alkaline Phosphatase (38-126) U/L Total Creatine Kinase (55-170) U/L Total Protein (6.3-8.2) G/DL Albumin (3.5-5.0) g/dL Globulin (2.2-3.9) gm/dL Albumin/Globulin Ratio (1.0-2.1) Venous Blood Potassium (3.6-5.2) mmol/L Urine Color (YELLOW) Urine Clarity (Clear) Urine pH (5.0-8.0) Ur Specific [place] (1.003-1.030) Urine Protein (NEGATIVE) mg/dL Urine Glucose (UA) (Normal) mg/dL Urine Ketones (NEGATIVE) mg/dL Urine Blood (NEGATIVE) Urine Nitrate (NEGATIVE) Urine Bilirubin (NEGATIVE) Urine Urobilinogen (0.2-1.0) mg/dL Ur Leukocyte Esterase (Negative) Page/uL Urine RBC (Auto) (0-3) /hpf Urine Microscopic WBC (0-5) /hpf Hyaline Casts (0-2) /hpf Fluid Type Spinal fluid CSF Volume 2 H (0-1) mL CSF Appearance Clear/colorless (CLEAR) CSF WBC 0.0 (0.0-5.0) /mm3 CSF RBC 11.0 H (0.0-0.0) /mm3 CSF Total Cell Counted 8 H (0-0) CSF Neutrophils 2 H (0-0) % CSF Lymphocytes 6.0 H (0-0) % CSF Monos/Macrophages 0 (0-0) % CSF Comment Clear CSF Glucose (40-70) mg/dL CSF Total Protein 50.0 (12-60) mg/dL Urine Opiates Screen (NEGATIVE) Urine Methadone Screen (NEGATIVE) Ur Barbiturates Screen (NEGATIVE) Ur Phencyclidine Scrn (NEGATIVE) Ur Amphetamines Screen (NEGATIVE) U Benzodiazepines Scrn (NEGATIVE) U Oth Cocaine Metabols (NEGATIVE) U Cannabinoids Screen (NEGATIVE) Alcohol, Quantitative (0-10) mg/dl 07/12/17 07/12/17 07/12/17 Range/Units 15:35 14:17 13:45 WBC (4.8-10.8) K/uL RBC (4.40-5.90) Mil/uL Hgb (12.0-18.0) g/dL Hct (35.0-51.0) % MCV (80.0-94.0) fl MCH (27.0-31.0) pg MCHC (33.0-37.0) g/dL RDW (11.5-14.5) % Plt Count (130-400) K/uL MPV (7.2-11.7) fl Neut % (Auto) (50.0-75.0) % Lymph % (Auto) (20.0-40.0) % [place] % (Auto) (0.0-10.0) % Eos % (Auto) (0.0-4.0) % Baso % (Auto) (0.0-2.0) % Neut # (1.8-7.0) K/uL Lymph # (1.0-4.3) K/uL [place] # (0.0-0.8) K/uL Eos # (0.0-0.7) K/uL Baso # (0.0-0.2) K/uL pO2 (30-55) mm/Hg VBG pH (7.32-7.43) VBG pCO2 (40-60) mmHg VBG HCO3 mmol/L VBG Total CO2 (22-28) mmol/L VBG O2 Sat (Calc) (40-65) % VBG Base Excess (0.0-2.0) mmol/L VBG Potassium (3.6-5.2) mmol/L Glucose (75-110) mg/dL Lactate (0.7-2.1) mmol/L FiO2 % Sodium (132-148) mmol/l Potassium (3.6-5.0) MMOL/L Chloride (98-107) mmol/L Carbon Dioxide (22-30) mmol/L Anion Gap (10-20) BUN (9-20) mg/dl Creatinine (0.8-1.5) mg/dL Est GFR ( Amer) Est GFR (Non-Af Amer) POC Glucose (mg/dL) 242 H (65-110) mg/dL Random Glucose (75-110) mg/dL Lactic Acid (0.7-2.1) MMOL/L Calcium (8.4-10.2) mg/dL Total Bilirubin (0.2-1.3) mg/dl AST (17-59) U/L ALT (21-72) U/L Alkaline Phosphatase (38-126) U/L Total Creatine Kinase (55-170) U/L Total Protein (6.3-8.2) G/DL Albumin (3.5-5.0) g/dL Globulin (2.2-3.9) gm/dL Albumin/Globulin Ratio (1.0-2.1) Venous Blood Potassium (3.6-5.2) mmol/L Urine Color Yellow (YELLOW) Urine Clarity Slighty-cloudy (Clear) Urine pH 5.0 (5.0-8.0) Ur Specific [place] 1.025 (1.003-1.030) Urine Protein 30 (NEGATIVE) mg/dL Urine Glucose (UA) >=500 (Normal) mg/dL Urine Ketones 20 (NEGATIVE) mg/dL Urine Blood Negative (NEGATIVE) Urine Nitrate Negative (NEGATIVE) Urine Bilirubin Negative (NEGATIVE) Urine Urobilinogen 0.2-1.0 (0.2-1.0) mg/dL Ur Leukocyte Esterase Neg (Negative) Page/uL Urine RBC (Auto) 5 H (0-3) /hpf Urine Microscopic WBC 1 (0-5) /hpf Hyaline Casts 3-5 H (0-2) /hpf Fluid Type CSF Volume (0-1) mL CSF Appearance (CLEAR) CSF WBC (0.0-5.0) /mm3 CSF RBC (0.0-0.0) /mm3 CSF Total Cell Counted (0-0) CSF Neutrophils (0-0) % CSF Lymphocytes (0-0) % CSF Monos/Macrophages (0-0) % CSF Comment CSF Glucose 75 H (40-70) mg/dL CSF Total Protein (12-60) mg/dL Urine Opiates Screen (NEGATIVE) Urine Methadone Screen (NEGATIVE) Ur Barbiturates Screen (NEGATIVE) Ur Phencyclidine Scrn (NEGATIVE) Ur Amphetamines Screen (NEGATIVE) U Benzodiazepines Scrn (NEGATIVE) U Oth Cocaine Metabols (NEGATIVE) U Cannabinoids Screen (NEGATIVE) Alcohol, Quantitative (0-10) mg/dl 07/12/17 07/12/17 07/12/17 Range/Units 13:45 13:34 12:53 WBC (4.8-10.8) K/uL RBC (4.40-5.90) Mil/uL Hgb (12.0-18.0) g/dL Hct (35.0-51.0) % MCV (80.0-94.0) fl MCH (27.0-31.0) pg MCHC (33.0-37.0) g/dL RDW (11.5-14.5) % Plt Count (130-400) K/uL MPV (7.2-11.7) fl Neut % (Auto) (50.0-75.0) % Lymph % (Auto) (20.0-40.0) % [place] % (Auto) (0.0-10.0) % Eos % (Auto) (0.0-4.0) % Baso % (Auto) (0.0-2.0) % Neut # (1.8-7.0) K/uL Lymph # (1.0-4.3) K/uL [place] # (0.0-0.8) K/uL Eos # (0.0-0.7) K/uL Baso # (0.0-0.2) K/uL pO2 29 L (30-55) mm/Hg VBG pH 7.21 L (7.32-7.43) VBG pCO2 64 H (40-60) mmHg VBG HCO3 20.3 mmol/L VBG Total CO2 27.6 (22-28) mmol/L VBG O2 Sat (Calc) 50.1 (40-65) % VBG Base Excess -3.9 L (0.0-2.0) mmol/L VBG Potassium 3.9 (3.6-5.2) mmol/L Glucose 254 H (75-110) mg/dL Lactate 3.1 H (0.7-2.1) mmol/L FiO2 21.0 % Sodium 140.0 (132-148) mmol/l Potassium (3.6-5.0) MMOL/L Chloride 104.0 (98-107) mmol/L Carbon Dioxide (22-30) mmol/L Anion Gap (10-20) BUN (9-20) mg/dl Creatinine (0.8-1.5) mg/dL Est GFR ( Amer) Est GFR (Non-Af Amer) POC Glucose (mg/dL) 363 H (65-110) mg/dL Random Glucose (75-110) mg/dL Lactic Acid (0.7-2.1) MMOL/L Calcium (8.4-10.2) mg/dL Total Bilirubin (0.2-1.3) mg/dl AST (17-59) U/L ALT (21-72) U/L Alkaline Phosphatase (38-126) U/L Total Creatine Kinase (55-170) U/L Total Protein (6.3-8.2) G/DL Albumin (3.5-5.0) g/dL Globulin (2.2-3.9) gm/dL Albumin/Globulin Ratio (1.0-2.1) Venous Blood Potassium 3.9 (3.6-5.2) mmol/L Urine Color (YELLOW) Urine Clarity (Clear) Urine pH (5.0-8.0) Ur Specific [place] (1.003-1.030) Urine Protein (NEGATIVE) mg/dL Urine Glucose (UA) (Normal) mg/dL Urine Ketones (NEGATIVE) mg/dL Urine Blood (NEGATIVE) Urine Nitrate (NEGATIVE) Urine Bilirubin (NEGATIVE) Urine Urobilinogen (0.2-1.0) mg/dL Ur Leukocyte Esterase (Negative) Page/uL Urine RBC (Auto) (0-3) /hpf Urine Microscopic WBC (0-5) /hpf Hyaline Casts (0-2) /hpf Fluid Type CSF Volume (0-1) mL CSF Appearance (CLEAR) CSF WBC (0.0-5.0) /mm3 CSF RBC (0.0-0.0) /mm3 CSF Total Cell Counted (0-0) CSF Neutrophils (0-0) % CSF Lymphocytes (0-0) % CSF Monos/Macrophages (0-0) % CSF Comment CSF Glucose (40-70) mg/dL CSF Total Protein (12-60) mg/dL Urine Opiates Screen Negative (NEGATIVE) Urine Methadone Screen Negative (NEGATIVE) Ur Barbiturates Screen Negative (NEGATIVE) Ur Phencyclidine Scrn Negative (NEGATIVE) Ur Amphetamines Screen Positive H (NEGATIVE) U Benzodiazepines Scrn Negative (NEGATIVE) U Oth Cocaine Metabols Negative (NEGATIVE) U Cannabinoids Screen Negative (NEGATIVE) Alcohol, Quantitative (0-10) mg/dl 07/12/17 07/12/17 07/12/17 Range/Units 12:40 10:55 10:55 WBC 30.0 H (4.8-10.8) K/uL RBC 5.56 (4.40-5.90) Mil/uL Hgb 16.3 (12.0-18.0) g/dL Hct 48.8 (35.0-51.0) % MCV 87.7 (80.0-94.0) fl MCH 29.3 (27.0-31.0) pg MCHC 33.4 (33.0-37.0) g/dL RDW 13.2 (11.5-14.5) % Plt Count 391 (130-400) K/uL MPV 7.8 (7.2-11.7) fl Neut % (Auto) 84.5 H (50.0-75.0) % Lymph % (Auto) 11.7 L (20.0-40.0) % [place] % (Auto) 2.9 (0.0-10.0) % Eos % (Auto) 0.4 (0.0-4.0) % Baso % (Auto) 0.5 (0.0-2.0) % Neut # 25.4 H (1.8-7.0) K/uL Lymph # 3.5 (1.0-4.3) K/uL [place] # 0.9 H (0.0-0.8) K/uL Eos # 0.1 (0.0-0.7) K/uL Baso # 0.1 (0.0-0.2) K/uL pO2 (30-55) mm/Hg VBG pH (7.32-7.43) VBG pCO2 (40-60) mmHg VBG HCO3 mmol/L VBG Total CO2 (22-28) mmol/L VBG O2 Sat (Calc) (40-65) % VBG Base Excess (0.0-2.0) mmol/L VBG Potassium (3.6-5.2) mmol/L Glucose (75-110) mg/dL Lactate (0.7-2.1) mmol/L FiO2 % Sodium 150 H (132-148) mmol/l Potassium 3.8 (3.6-5.0) MMOL/L Chloride 107 (98-107) mmol/L Carbon Dioxide 21 L (22-30) mmol/L Anion Gap 26 H (10-20) BUN 13 (9-20) mg/dl Creatinine 0.9 (0.8-1.5) mg/dL Est GFR ( Amer) > 60 Est GFR (Non-Af Amer) > 60 POC Glucose (mg/dL) 34 L* (65-110) mg/dL Random Glucose 43 L (75-110) mg/dL Lactic Acid (0.7-2.1) MMOL/L Calcium 9.5 (8.4-10.2) mg/dL Total Bilirubin 0.6 (0.2-1.3) mg/dl AST 41 (17-59) U/L ALT 32 (21-72) U/L Alkaline Phosphatase 121 (38-126) U/L Total Creatine Kinase (55-170) U/L Total Protein 8.4 H (6.3-8.2) G/DL Albumin 4.8 (3.5-5.0) g/dL Globulin 3.6 (2.2-3.9) gm/dL Albumin/Globulin Ratio 1.3 (1.0-2.1) Venous Blood Potassium (3.6-5.2) mmol/L Urine Color (YELLOW) Urine Clarity (Clear) Urine pH (5.0-8.0) Ur Specific [place] (1.003-1.030) Urine Protein (NEGATIVE) mg/dL Urine Glucose (UA) (Normal) mg/dL Urine Ketones (NEGATIVE) mg/dL Urine Blood (NEGATIVE) Urine Nitrate (NEGATIVE) Urine Bilirubin (NEGATIVE) Urine Urobilinogen (0.2-1.0) mg/dL Ur Leukocyte Esterase (Negative) Page/uL Urine RBC (Auto) (0-3) /hpf Urine Microscopic WBC (0-5) /hpf Hyaline Casts (0-2) /hpf Fluid Type CSF Volume (0-1) mL CSF Appearance (CLEAR) CSF WBC (0.0-5.0) /mm3 CSF RBC (0.0-0.0) /mm3 CSF Total Cell Counted (0-0) CSF Neutrophils (0-0) % CSF Lymphocytes (0-0) % CSF Monos/Macrophages (0-0) % CSF Comment CSF Glucose (40-70) mg/dL CSF Total Protein (12-60) mg/dL Urine Opiates Screen (NEGATIVE) Urine Methadone Screen (NEGATIVE) Ur Barbiturates Screen (NEGATIVE) Ur Phencyclidine Scrn (NEGATIVE) Ur Amphetamines Screen (NEGATIVE) U Benzodiazepines Scrn (NEGATIVE) U Oth Cocaine Metabols (NEGATIVE) U Cannabinoids Screen (NEGATIVE) Alcohol, Quantitative 258 H (0-10) mg/dl Laboratory Results - last 24 hr 07/12/17 07/12/17 07/12/17 10:55 10:55 12:40 WBC 30.0 H RBC 5.56 Hgb 16.3 Hct 48.8 MCV 87.7 MCH 29.3 MCHC 33.4 RDW 13.2 Plt Count 391 MPV 7.8 Neut % (Auto) 84.5 H Lymph % (Auto) 11.7 L [place] % (Auto) 2.9 Eos % (Auto) 0.4 Baso % (Auto) 0.5 Neut # 25.4 H Lymph # 3.5 [place] # 0.9 H Eos # 0.1 Baso # 0.1 pO2 VBG pH VBG pCO2 VBG HCO3 VBG Total CO2 VBG O2 Sat (Calc) VBG Base Excess VBG Potassium Glucose Lactate FiO2 Sodium 150 H Potassium 3.8 Chloride 107 Carbon Dioxide 21 L Anion Gap 26 H BUN 13 Creatinine 0.9 Est GFR ( Amer) > 60 Est GFR (Non-Af Amer) > 60 POC Glucose (mg/dL) 34 L* Random Glucose 43 L Lactic Acid Calcium 9.5 Total Bilirubin 0.6 AST 41 ALT 32 Alkaline Phosphatase 121 Total Creatine Kinase Total Protein 8.4 H Albumin 4.8 Globulin 3.6 Albumin/Globulin Ratio 1.3 Venous Blood Potassium Urine Color Urine Clarity Urine pH Ur Specific [place] Urine Protein Urine Glucose (UA) Urine Ketones Urine Blood Urine Nitrate Urine Bilirubin Urine Urobilinogen Ur Leukocyte Esterase Urine RBC (Auto) Urine Microscopic WBC Hyaline Casts Fluid Type CSF Volume CSF Appearance CSF WBC CSF RBC CSF Total Cell Counted CSF Neutrophils CSF Lymphocytes CSF Monos/Macrophages CSF Comment CSF Glucose CSF Total Protein Urine Opiates Screen Urine Methadone Screen Ur Barbiturates Screen Ur Phencyclidine Scrn Ur Amphetamines Screen U Benzodiazepines Scrn U Oth Cocaine Metabols U Cannabinoids Screen Alcohol, Quantitative 258 H 07/12/17 07/12/17 07/12/17 12:53 13:34 13:45 WBC RBC Hgb Hct MCV MCH MCHC RDW Plt Count MPV Neut % (Auto) Lymph % (Auto) [place] % (Auto) Eos % (Auto) Baso % (Auto) Neut # Lymph # [place] # Eos # Baso # pO2 29 L VBG pH 7.21 L VBG pCO2 64 H VBG HCO3 20.3 VBG Total CO2 27.6 VBG O2 Sat (Calc) 50.1 VBG Base Excess -3.9 L VBG Potassium 3.9 Glucose 254 H Lactate 3.1 H FiO2 21.0 Sodium 140.0 Potassium Chloride 104.0 Carbon Dioxide Anion Gap BUN Creatinine Est GFR ( Amer) Est GFR (Non-Af Amer) POC Glucose (mg/dL) 363 H Random Glucose Lactic Acid Calcium Total Bilirubin AST ALT Alkaline Phosphatase Total Creatine Kinase Total Protein Albumin Globulin Albumin/Globulin Ratio Venous Blood Potassium 3.9 Urine Color Urine Clarity Urine pH Ur Specific [place] Urine Protein Urine Glucose (UA) Urine Ketones Urine Blood Urine Nitrate Urine Bilirubin Urine Urobilinogen Ur Leukocyte Esterase Urine RBC (Auto) Urine Microscopic WBC Hyaline Casts Fluid Type CSF Volume CSF Appearance CSF WBC CSF RBC CSF Total Cell Counted CSF Neutrophils CSF Lymphocytes CSF Monos/Macrophages CSF Comment CSF Glucose CSF Total Protein Urine Opiates Screen Negative Urine Methadone Screen Negative Ur Barbiturates Screen Negative Ur Phencyclidine Scrn Negative Ur Amphetamines Screen Positive H U Benzodiazepines Scrn Negative U Oth Cocaine Metabols Negative U Cannabinoids Screen Negative Alcohol, Quantitative 07/12/17 07/12/17 07/12/17 13:45 14:17 15:35 WBC RBC Hgb Hct MCV MCH MCHC RDW Plt Count MPV Neut % (Auto) Lymph % (Auto) [place] % (Auto) Eos % (Auto) Baso % (Auto) Neut # Lymph # [place] # Eos # Baso # pO2 VBG pH VBG pCO2 VBG HCO3 VBG Total CO2 VBG O2 Sat (Calc) VBG Base Excess VBG Potassium Glucose Lactate FiO2 Sodium Potassium Chloride Carbon Dioxide Anion Gap BUN Creatinine Est GFR ( Amer) Est GFR (Non-Af Amer) POC Glucose (mg/dL) 242 H Random Glucose Lactic Acid Calcium Total Bilirubin AST ALT Alkaline Phosphatase Total Creatine Kinase Total Protein Albumin Globulin Albumin/Globulin Ratio Venous Blood Potassium Urine Color Yellow Urine Clarity Slighty-cloudy Urine pH 5.0 Ur Specific [place] 1.025 Urine Protein 30 Urine Glucose (UA) >=500 Urine Ketones 20 Urine Blood Negative Urine Nitrate Negative Urine Bilirubin Negative Urine Urobilinogen 0.2-1.0 Ur Leukocyte Esterase Neg Urine RBC (Auto) 5 H Urine Microscopic WBC 1 Hyaline Casts 3-5 H Fluid Type CSF Volume CSF Appearance CSF WBC CSF RBC CSF Total Cell Counted CSF Neutrophils CSF Lymphocytes CSF Monos/Macrophages CSF Comment CSF Glucose 75 H CSF Total Protein Urine Opiates Screen Urine Methadone Screen Ur Barbiturates Screen Ur Phencyclidine Scrn Ur Amphetamines Screen U Benzodiazepines Scrn U Oth Cocaine Metabols U Cannabinoids Screen Alcohol, Quantitative 07/12/17 07/12/17 07/12/17 15:55 17:13 17:27 WBC RBC Hgb Hct MCV MCH MCHC RDW Plt Count MPV Neut % (Auto) Lymph % (Auto) [place] % (Auto) Eos % (Auto) Baso % (Auto) Neut # Lymph # [place] # Eos # Baso # pO2 VBG pH VBG pCO2 VBG HCO3 VBG Total CO2 VBG O2 Sat (Calc) VBG Base Excess VBG Potassium Glucose Lactate FiO2 Sodium Potassium Chloride Carbon Dioxide Anion Gap BUN Creatinine Est GFR ( Amer) Est GFR (Non-Af Amer) POC Glucose (mg/dL) 157 H Random Glucose Lactic Acid Calcium Total Bilirubin AST ALT Alkaline Phosphatase Total Creatine Kinase Total Protein Albumin Globulin Albumin/Globulin Ratio Venous Blood Potassium Urine Color Urine Clarity Urine pH Ur Specific [place] Urine Protein Urine Glucose (UA) Urine Ketones Urine Blood Urine Nitrate Urine Bilirubin Urine Urobilinogen Ur Leukocyte Esterase Urine RBC (Auto) Urine Microscopic WBC Hyaline Casts Fluid Type Spinal fluid CSF Volume 2 H CSF Appearance Clear/colorless CSF WBC 0.0 CSF RBC 11.0 H CSF Total Cell Counted 8 H CSF Neutrophils 2 H CSF Lymphocytes 6.0 H CSF Monos/Macrophages 0 CSF Comment Clear CSF Glucose CSF Total Protein 50.0 Urine Opiates Screen Urine Methadone Screen Ur Barbiturates Screen Ur Phencyclidine Scrn Ur Amphetamines Screen U Benzodiazepines Scrn U Oth Cocaine Metabols U Cannabinoids Screen Alcohol, Quantitative 07/12/17 07/12/17 07/12/17 17:34 17:41 20:02 WBC 8.0 D RBC 4.54 Hgb 13.3 D Hct 40.2 MCV 88.6 MCH 29.4 MCHC 33.2 RDW 13.1 Plt Count 259 D MPV 7.9 Neut % (Auto) 77.4 H Lymph % (Auto) 16.7 L [place] % (Auto) 5.1 Eos % (Auto) 0.4 Baso % (Auto) 0.4 Neut # 6.2 Lymph # 1.3 [place] # 0.4 Eos # 0.0 Baso # 0.0 pO2 64 H VBG pH 7.32 VBG pCO2 43 VBG HCO3 21.7 VBG Total CO2 23.5 VBG O2 Sat (Calc) 96.0 H VBG Base Excess -3.9 L VBG Potassium 3.3 L Glucose 140 H Lactate 2.4 H FiO2 21.0 Sodium 140.0 Potassium Chloride 110.0 H Carbon Dioxide Anion Gap BUN Creatinine Est GFR ( Amer) Est GFR (Non-Af Amer) POC Glucose (mg/dL) Random Glucose Lactic Acid Calcium Total Bilirubin AST ALT Alkaline Phosphatase Total Creatine Kinase 82 Total Protein Albumin Globulin Albumin/Globulin Ratio Venous Blood Potassium 3.3 L Urine Color Urine Clarity Urine pH Ur Specific [place] Urine Protein Urine Glucose (UA) Urine Ketones Urine Blood Urine Nitrate Urine Bilirubin Urine Urobilinogen Ur Leukocyte Esterase Urine RBC (Auto) Urine Microscopic WBC Hyaline Casts Fluid Type CSF Volume CSF Appearance CSF WBC CSF RBC CSF Total Cell Counted CSF Neutrophils CSF Lymphocytes CSF Monos/Macrophages CSF Comment CSF Glucose CSF Total Protein Urine Opiates Screen Urine Methadone Screen Ur Barbiturates Screen Ur Phencyclidine Scrn Ur Amphetamines Screen U Benzodiazepines Scrn U Oth Cocaine Metabols U Cannabinoids Screen Alcohol, Quantitative 07/12/17 07/12/17 07/12/17 20:02 22:39 23:43 WBC RBC Hgb Hct MCV MCH MCHC RDW Plt Count MPV Neut % (Auto) Lymph % (Auto) [place] % (Auto) Eos % (Auto) Baso % (Auto) Neut # Lymph # [place] # Eos # Baso # pO2 VBG pH VBG pCO2 VBG HCO3 VBG Total CO2 VBG O2 Sat (Calc) VBG Base Excess VBG Potassium Glucose Lactate FiO2 Sodium 144 Potassium 3.4 L Chloride 112 H Carbon Dioxide 19 L Anion Gap 16 BUN 9 Creatinine 0.7 L Est GFR ( Amer) > 60 Est GFR (Non-Af Amer) > 60 POC Glucose (mg/dL) 64 L 75 Random Glucose 121 H Lactic Acid Calcium 7.8 L Total Bilirubin 0.1 L AST 26 ALT 27 Alkaline Phosphatase 75 Total Creatine Kinase Total Protein 5.9 L Albumin 3.3 L D Globulin 2.5 Albumin/Globulin Ratio 1.3 Venous Blood Potassium Urine Color Urine Clarity Urine pH Ur Specific [place] Urine Protein Urine Glucose (UA) Urine Ketones Urine Blood Urine Nitrate Urine Bilirubin Urine Urobilinogen Ur Leukocyte Esterase Urine RBC (Auto) Urine Microscopic WBC Hyaline Casts Fluid Type CSF Volume CSF Appearance CSF WBC CSF RBC CSF Total Cell Counted CSF Neutrophils CSF Lymphocytes CSF Monos/Macrophages CSF Comment CSF Glucose CSF Total Protein Urine Opiates Screen Urine Methadone Screen Ur Barbiturates Screen Ur Phencyclidine Scrn Ur Amphetamines Screen U Benzodiazepines Scrn U Oth Cocaine Metabols U Cannabinoids Screen Alcohol, Quantitative 07/13/17 07/13/17 07/13/17 04:30 04:30 04:30 WBC 10.6 RBC 4.65 Hgb 13.6 Hct 41.0 MCV 88.3 MCH 29.3 MCHC 33.2 RDW 13.3 Plt Count 249 MPV 8.0 Neut % (Auto) 73.6 Lymph % (Auto) 13.9 L [place] % (Auto) 10.4 H Eos % (Auto) 1.8 Baso % (Auto) 0.3 Neut # 7.8 H Lymph # 1.5 [place] # 1.1 H Eos # 0.2 Baso # 0.0 pO2 VBG pH VBG pCO2 VBG HCO3 VBG Total CO2 VBG O2 Sat (Calc) VBG Base Excess VBG Potassium Glucose Lactate FiO2 Sodium 140 Potassium 3.7 Chloride 107 Carbon Dioxide 23 Anion Gap 14 BUN 8 L Creatinine 0.7 L Est GFR ( Amer) > 60 Est GFR (Non-Af Amer) > 60 POC Glucose (mg/dL) Random Glucose 89 Lactic Acid 0.8 Calcium 8.5 Total Bilirubin AST ALT Alkaline Phosphatase Total Creatine Kinase Total Protein Albumin Globulin Albumin/Globulin Ratio Venous Blood Potassium Urine Color Urine Clarity Urine pH Ur Specific [place] Urine Protein Urine Glucose (UA) Urine Ketones Urine Blood Urine Nitrate Urine Bilirubin Urine Urobilinogen Ur Leukocyte Esterase Urine RBC (Auto) Urine Microscopic WBC Hyaline Casts Fluid Type CSF Volume CSF Appearance CSF WBC CSF RBC CSF Total Cell Counted CSF Neutrophils CSF Lymphocytes CSF Monos/Macrophages CSF Comment CSF Glucose CSF Total Protein Urine Opiates Screen Urine Methadone Screen Ur Barbiturates Screen Ur Phencyclidine Scrn Ur Amphetamines Screen U Benzodiazepines Scrn U Oth Cocaine Metabols U Cannabinoids Screen Alcohol, Quantitative EKG/Cardiology Studies: Cardiology / EKG Studies 07/12/17 12:51 EKG [ELECTROCARDIOGRAM] Stat Comment: Mode Of Transportation: PORTABLE Reason For Exam: Generalized weakness Fingerstick Blood Sugar Results: 75 Review of Systems - Review of Systems All systems: reviewed and no additional remarkable complaints except - Constitutional Constitutional: Sweats. absent: Fever, Chills - Cardiovascular Cardiovascular: absent: Chest Pain - Respiratory Respiratory: absent: Dyspnea - Gastrointestinal Gastrointestinal: absent: Abdominal Pain, Nausea, Vomiting - Genitourinary Genitourinary: Urinary Frequency. absent: Dysuria - Neurological Neurological: absent: Numbness, Headaches, Tingling, Tremor - Psychiatric Psychiatric: absent: Auditory Hallucinations, Hallucinations, Visual Hallucinations, Tactile Hallucinations Critical Care Progress Note - Nutrition Nutrition: Nutrition Category Date Time Status Regular Diet [DIET] Diets 07/12/17 Lunch Active Assessment/Plan - Assessment and Plan (Free Text) Assessment: 36 y/o man w/ pmh of alcohol and drug abuse presented to ED for alcohol intoxication. Currently in ICU for possible sepsis due to meningitis. Plan: Sepsis secondary to meningitis - on presentation patient found to be hypotensive and hypothermic - initial WBC 30 - LP in ED showed clear/colorless spinal fluid, RBC 11, neutrophil 2.0, lymphocyte 6.0, glucose 75, and protein 50 - ED initiated treatmetn for viral and/or bacterial meningitis - patient this AM afebrile, normotensive - repeat morning labs show decreased WBC 10.6 - No meningitis clinically and based on results of CSF - Neuro recommendations appreciated - IV antibiotics DC'ed Alcohol Intoxication - patient has history of alcoholism and is on medication for disease - patient denies regular drinking on a daily basis and states this was binge drinking episode - Current CIWA score is 0 - denies symptoms of alcohol withdrawal - vitals stable - c/w D5 NS @ 125mL/hr - c/w thiamine PO daily - c/w folate PO daily - observe for withdrawal signs Prophylactic measure - Protonix 40 mg PO daily - SCDs <Catarino Smalls - Last Filed: 07/13/17 13:29> CCU Objective - Medications Active Medications: Active Medications Generic Name Dose Route Start Last Admin Trade Name Freq PRN Reason Stop Dose Admin Enoxaparin Sodium 40 mg 07/13/17 09:00 07/13/17 09:48 Lovenox SC 40 mg DAILY ANJELICA Administration Protocol Folic Acid 1 mg 07/13/17 10:15 07/13/17 12:06 Folic Acid PO 1 mg DAILY ANJELICA Administration Norepinephrine Bitartrate 4 mg 254 mls @ 19.05 mls/hr 07/12/17 18:45 18:40 / Dextrose IV 19.05 mls/hr .[id number] ANJELICA Administration Protocol 5 MCG/MIN Dextrose/Sodium Chloride 1,000 mls @ 125 mls/hr 07/13/17 10:15 07/13/17 10:15 Dextrose 5%/0.9% Ns 1000 Ml IV 07/14/17 10:15 125 mls/hr .Q8H ANJELICA Administration Pantoprazole Sodium 40 mg 07/13/17 09:00 07/13/17 09:46 Protonix Inj IVP 40 mg DAILY ANJELICA Administration Pantoprazole Sodium 40 mg 07/13/17 10:15 07/13/17 12:07 Protonix Ec Tab PO Not Given DAILY ANJELICA Thiamine HCl 50 mg 07/13/17 10:15 07/13/17 12:06 Vitamin B1 Tab PO 50 mg DAILY ANJELICA Administration - Patient Studies Lab Studies: Microbiology Studies 07/12/17 13:45 Urine Culture - Final Urine,Clean Catch No Growth (<1,000 CFU/ML) 07/12/17 15:35 Gram Stain - Final Cerebral Spinal Fluid Lab Studies 07/13/17 07/13/17 07/13/17 Range/Units 04:30 04:30 04:30 WBC 10.6 (4.8-10.8) K/uL RBC 4.65 (4.40-5.90) Mil/uL Hgb 13.6 (12.0-18.0) g/dL Hct 41.0 (35.0-51.0) % MCV 88.3 (80.0-94.0) fl MCH 29.3 (27.0-31.0) pg MCHC 33.2 (33.0-37.0) g/dL RDW 13.3 (11.5-14.5) % Plt Count 249 (130-400) K/uL MPV 8.0 (7.2-11.7) fl Neut % (Auto) 73.6 (50.0-75.0) % Lymph % (Auto) 13.9 L (20.0-40.0) % [place] % (Auto) 10.4 H (0.0-10.0) % Eos % (Auto) 1.8 (0.0-4.0) % Baso % (Auto) 0.3 (0.0-2.0) % Neut # 7.8 H (1.8-7.0) K/uL Lymph # 1.5 (1.0-4.3) K/uL [place] # 1.1 H (0.0-0.8) K/uL Eos # 0.2 (0.0-0.7) K/uL Baso # 0.0 (0.0-0.2) K/uL pO2 (30-55) mm/Hg VBG pH (7.32-7.43) VBG pCO2 (40-60) mmHg VBG HCO3 mmol/L VBG Total CO2 (22-28) mmol/L VBG O2 Sat (Calc) (40-65) % VBG Base Excess (0.0-2.0) mmol/L VBG Potassium (3.6-5.2) mmol/L Sodium 140 (132-148) mmol/L Chloride 107 (98-107) mmol/L Glucose (75-110) mg/dL Lactate (0.7-2.1) mmol/L FiO2 % Potassium 3.7 (3.6-5.0) MMOL/L Carbon Dioxide 23 (22-30) mmol/L Anion Gap 14 (10-20) BUN 8 L (9-20) mg/dl Creatinine 0.7 L (0.8-1.5) mg/dL Est GFR ( Amer) > 60 Est GFR (Non-Af Amer) > 60 POC Glucose (mg/dL) (65-110) mg/dL Random Glucose 89 (75-110) mg/dL Lactic Acid 0.8 (0.7-2.1) MMOL/L Calcium 8.5 (8.4-10.2) mg/dL Total Bilirubin (0.2-1.3) mg/dl AST (17-59) U/L ALT (21-72) U/L Alkaline Phosphatase (38-126) U/L Total Creatine Kinase (55-170) U/L Total Protein (6.3-8.2) G/DL Albumin (3.5-5.0) g/dL Globulin (2.2-3.9) gm/dL Albumin/Globulin Ratio (1.0-2.1) Venous Blood Potassium (3.6-5.2) mmol/L Urine Color (YELLOW) Urine Clarity (Clear) Urine pH (5.0-8.0) Ur Specific [place] (1.003-1.030) Urine Protein (NEGATIVE) mg/dL Urine Glucose (UA) (Normal) mg/dL Urine Ketones (NEGATIVE) mg/dL Urine Blood (NEGATIVE) Urine Nitrate (NEGATIVE) Urine Bilirubin (NEGATIVE) Urine Urobilinogen (0.2-1.0) mg/dL Ur Leukocyte Esterase (Negative) Page/uL Urine RBC (Auto) (0-3) /hpf Urine Microscopic WBC (0-5) /hpf Hyaline Casts (0-2) /hpf Fluid Type CSF Volume (0-1) mL CSF Appearance (CLEAR) CSF WBC (0.0-5.0) /mm3 CSF RBC (0.0-0.0) /mm3 CSF Total Cell Counted (0-0) CSF Neutrophils (0-0) % CSF Lymphocytes (0-0) % CSF Monos/Macrophages (0-0) % CSF Comment CSF Glucose (40-70) mg/dL CSF Total Protein (12-60) mg/dL Urine Opiates Screen (NEGATIVE) Urine Methadone Screen (NEGATIVE) Ur Barbiturates Screen (NEGATIVE) Ur Phencyclidine Scrn (NEGATIVE) Ur Amphetamines Screen (NEGATIVE) U Benzodiazepines Scrn (NEGATIVE) U Oth Cocaine Metabols (NEGATIVE) U Cannabinoids Screen (NEGATIVE) 07/12/17 07/12/17 07/12/17 Range/Units 23:43 22:39 20:02 WBC (4.8-10.8) K/uL RBC (4.40-5.90) Mil/uL Hgb (12.0-18.0) g/dL Hct (35.0-51.0) % MCV (80.0-94.0) fl MCH (27.0-31.0) pg MCHC (33.0-37.0) g/dL RDW (11.5-14.5) % Plt Count (130-400) K/uL MPV (7.2-11.7) fl Neut % (Auto) (50.0-75.0) % Lymph % (Auto) (20.0-40.0) % [place] % (Auto) (0.0-10.0) % Eos % (Auto) (0.0-4.0) % Baso % (Auto) (0.0-2.0) % Neut # (1.8-7.0) K/uL Lymph # (1.0-4.3) K/uL [place] # (0.0-0.8) K/uL Eos # (0.0-0.7) K/uL Baso # (0.0-0.2) K/uL pO2 (30-55) mm/Hg VBG pH (7.32-7.43) VBG pCO2 (40-60) mmHg VBG HCO3 mmol/L VBG Total CO2 (22-28) mmol/L VBG O2 Sat (Calc) (40-65) % VBG Base Excess (0.0-2.0) mmol/L VBG Potassium (3.6-5.2) mmol/L Sodium 144 (132-148) mmol/L Chloride 112 H (98-107) mmol/L Glucose (75-110) mg/dL Lactate (0.7-2.1) mmol/L FiO2 % Potassium 3.4 L (3.6-5.0) MMOL/L Carbon Dioxide 19 L (22-30) mmol/L Anion Gap 16 (10-20) BUN 9 (9-20) mg/dl Creatinine 0.7 L (0.8-1.5) mg/dL Est GFR ( Amer) > 60 Est GFR (Non-Af Amer) > 60 POC Glucose (mg/dL) 75 64 L (65-110) mg/dL Random Glucose 121 H (75-110) mg/dL Lactic Acid (0.7-2.1) MMOL/L Calcium 7.8 L (8.4-10.2) mg/dL Total Bilirubin 0.1 L (0.2-1.3) mg/dl AST 26 (17-59) U/L ALT 27 (21-72) U/L Alkaline Phosphatase 75 (38-126) U/L Total Creatine Kinase (55-170) U/L Total Protein 5.9 L (6.3-8.2) G/DL Albumin 3.3 L D (3.5-5.0) g/dL Globulin 2.5 (2.2-3.9) gm/dL Albumin/Globulin Ratio 1.3 (1.0-2.1) Venous Blood Potassium (3.6-5.2) mmol/L Urine Color (YELLOW) Urine Clarity (Clear) Urine pH (5.0-8.0) Ur Specific [place] (1.003-1.030) Urine Protein (NEGATIVE) mg/dL Urine Glucose (UA) (Normal) mg/dL Urine Ketones (NEGATIVE) mg/dL Urine Blood (NEGATIVE) Urine Nitrate (NEGATIVE) Urine Bilirubin (NEGATIVE) Urine Urobilinogen (0.2-1.0) mg/dL Ur Leukocyte Esterase (Negative) Page/uL Urine RBC (Auto) (0-3) /hpf Urine Microscopic WBC (0-5) /hpf Hyaline Casts (0-2) /hpf Fluid Type CSF Volume (0-1) mL CSF Appearance (CLEAR) CSF WBC (0.0-5.0) /mm3 CSF RBC (0.0-0.0) /mm3 CSF Total Cell Counted (0-0) CSF Neutrophils (0-0) % CSF Lymphocytes (0-0) % CSF Monos/Macrophages (0-0) % CSF Comment CSF Glucose (40-70) mg/dL CSF Total Protein (12-60) mg/dL Urine Opiates Screen (NEGATIVE) Urine Methadone Screen (NEGATIVE) Ur Barbiturates Screen (NEGATIVE) Ur Phencyclidine Scrn (NEGATIVE) Ur Amphetamines Screen (NEGATIVE) U Benzodiazepines Scrn (NEGATIVE) U Oth Cocaine Metabols (NEGATIVE) U Cannabinoids Screen (NEGATIVE) 07/12/17 07/12/17 07/12/17 Range/Units 20:02 17:41 17:34 WBC 8.0 D (4.8-10.8) K/uL RBC 4.54 (4.40-5.90) Mil/uL Hgb 13.3 D (12.0-18.0) g/dL Hct 40.2 (35.0-51.0) % MCV 88.6 (80.0-94.0) fl MCH 29.4 (27.0-31.0) pg MCHC 33.2 (33.0-37.0) g/dL RDW 13.1 (11.5-14.5) % Plt Count 259 D (130-400) K/uL MPV 7.9 (7.2-11.7) fl Neut % (Auto) 77.4 H (50.0-75.0) % Lymph % (Auto) 16.7 L (20.0-40.0) % [place] % (Auto) 5.1 (0.0-10.0) % Eos % (Auto) 0.4 (0.0-4.0) % Baso % (Auto) 0.4 (0.0-2.0) % Neut # 6.2 (1.8-7.0) K/uL Lymph # 1.3 (1.0-4.3) K/uL [place] # 0.4 (0.0-0.8) K/uL Eos # 0.0 (0.0-0.7) K/uL Baso # 0.0 (0.0-0.2) K/uL pO2 64 H (30-55) mm/Hg VBG pH 7.32 (7.32-7.43) VBG pCO2 43 (40-60) mmHg VBG HCO3 21.7 mmol/L VBG Total CO2 23.5 (22-28) mmol/L VBG O2 Sat (Calc) 96.0 H (40-65) % VBG Base Excess -3.9 L (0.0-2.0) mmol/L VBG Potassium 3.3 L (3.6-5.2) mmol/L Sodium 140.0 (132-148) mmol/L Chloride 110.0 H (98-107) mmol/L Glucose 140 H (75-110) mg/dL Lactate 2.4 H (0.7-2.1) mmol/L FiO2 21.0 % Potassium (3.6-5.0) MMOL/L Carbon Dioxide (22-30) mmol/L Anion Gap (10-20) BUN (9-20) mg/dl Creatinine (0.8-1.5) mg/dL Est GFR ( Amer) Est GFR (Non-Af Amer) POC Glucose (mg/dL) (65-110) mg/dL Random Glucose (75-110) mg/dL Lactic Acid (0.7-2.1) MMOL/L Calcium (8.4-10.2) mg/dL Total Bilirubin (0.2-1.3) mg/dl AST (17-59) U/L ALT (21-72) U/L Alkaline Phosphatase (38-126) U/L Total Creatine Kinase 82 (55-170) U/L Total Protein (6.3-8.2) G/DL Albumin (3.5-5.0) g/dL Globulin (2.2-3.9) gm/dL Albumin/Globulin Ratio (1.0-2.1) Venous Blood Potassium 3.3 L (3.6-5.2) mmol/L Urine Color (YELLOW) Urine Clarity (Clear) Urine pH (5.0-8.0) Ur Specific [place] (1.003-1.030) Urine Protein (NEGATIVE) mg/dL Urine Glucose (UA) (Normal) mg/dL Urine Ketones (NEGATIVE) mg/dL Urine Blood (NEGATIVE) Urine Nitrate (NEGATIVE) Urine Bilirubin (NEGATIVE) Urine Urobilinogen (0.2-1.0) mg/dL Ur Leukocyte Esterase (Negative) Page/uL Urine RBC (Auto) (0-3) /hpf Urine Microscopic WBC (0-5) /hpf Hyaline Casts (0-2) /hpf Fluid Type CSF Volume (0-1) mL CSF Appearance (CLEAR) CSF WBC (0.0-5.0) /mm3 CSF RBC (0.0-0.0) /mm3 CSF Total Cell Counted (0-0) CSF Neutrophils (0-0) % CSF Lymphocytes (0-0) % CSF Monos/Macrophages (0-0) % CSF Comment CSF Glucose (40-70) mg/dL CSF Total Protein (12-60) mg/dL Urine Opiates Screen (NEGATIVE) Urine Methadone Screen (NEGATIVE) Ur Barbiturates Screen (NEGATIVE) Ur Phencyclidine Scrn (NEGATIVE) Ur Amphetamines Screen (NEGATIVE) U Benzodiazepines Scrn (NEGATIVE) U Oth Cocaine Metabols (NEGATIVE) U Cannabinoids Screen (NEGATIVE) 07/12/17 07/12/17 07/12/17 Range/Units 17:27 17:13 15:55 WBC (4.8-10.8) K/uL RBC (4.40-5.90) Mil/uL Hgb (12.0-18.0) g/dL Hct (35.0-51.0) % MCV (80.0-94.0) fl MCH (27.0-31.0) pg MCHC (33.0-37.0) g/dL RDW (11.5-14.5) % Plt Count (130-400) K/uL MPV (7.2-11.7) fl Neut % (Auto) (50.0-75.0) % Lymph % (Auto) (20.0-40.0) % [place] % (Auto) (0.0-10.0) % Eos % (Auto) (0.0-4.0) % Baso % (Auto) (0.0-2.0) % Neut # (1.8-7.0) K/uL Lymph # (1.0-4.3) K/uL [place] # (0.0-0.8) K/uL Eos # (0.0-0.7) K/uL Baso # (0.0-0.2) K/uL pO2 (30-55) mm/Hg VBG pH (7.32-7.43) VBG pCO2 (40-60) mmHg VBG HCO3 mmol/L VBG Total CO2 (22-28) mmol/L VBG O2 Sat (Calc) (40-65) % VBG Base Excess (0.0-2.0) mmol/L VBG Potassium (3.6-5.2) mmol/L Sodium (132-148) mmol/L Chloride (98-107) mmol/L Glucose (75-110) mg/dL Lactate (0.7-2.1) mmol/L FiO2 % Potassium (3.6-5.0) MMOL/L Carbon Dioxide (22-30) mmol/L Anion Gap (10-20) BUN (9-20) mg/dl Creatinine (0.8-1.5) mg/dL Est GFR ( Amer) Est GFR (Non-Af Amer) POC Glucose (mg/dL) 157 H (65-110) mg/dL Random Glucose (75-110) mg/dL Lactic Acid (0.7-2.1) MMOL/L Calcium (8.4-10.2) mg/dL Total Bilirubin (0.2-1.3) mg/dl AST (17-59) U/L ALT (21-72) U/L Alkaline Phosphatase (38-126) U/L Total Creatine Kinase (55-170) U/L Total Protein (6.3-8.2) G/DL Albumin (3.5-5.0) g/dL Globulin (2.2-3.9) gm/dL Albumin/Globulin Ratio (1.0-2.1) Venous Blood Potassium (3.6-5.2) mmol/L Urine Color (YELLOW) Urine Clarity (Clear) Urine pH (5.0-8.0) Ur Specific [place] (1.003-1.030) Urine Protein (NEGATIVE) mg/dL Urine Glucose (UA) (Normal) mg/dL Urine Ketones (NEGATIVE) mg/dL Urine Blood (NEGATIVE) Urine Nitrate (NEGATIVE) Urine Bilirubin (NEGATIVE) Urine Urobilinogen (0.2-1.0) mg/dL Ur Leukocyte Esterase (Negative) Page/uL Urine RBC (Auto) (0-3) /hpf Urine Microscopic WBC (0-5) /hpf Hyaline Casts (0-2) /hpf Fluid Type Spinal fluid CSF Volume 2 H (0-1) mL CSF Appearance Clear/colorless (CLEAR) CSF WBC 0.0 (0.0-5.0) /mm3 CSF RBC 11.0 H (0.0-0.0) /mm3 CSF Total Cell Counted 8 H (0-0) CSF Neutrophils 2 H (0-0) % CSF Lymphocytes 6.0 H (0-0) % CSF Monos/Macrophages 0 (0-0) % CSF Comment Clear CSF Glucose (40-70) mg/dL CSF Total Protein 50.0 (12-60) mg/dL Urine Opiates Screen (NEGATIVE) Urine Methadone Screen (NEGATIVE) Ur Barbiturates Screen (NEGATIVE) Ur Phencyclidine Scrn (NEGATIVE) Ur Amphetamines Screen (NEGATIVE) U Benzodiazepines Scrn (NEGATIVE) U Oth Cocaine Metabols (NEGATIVE) U Cannabinoids Screen (NEGATIVE) 07/12/17 07/12/17 07/12/17 Range/Units 15:35 14:17 13:45 WBC (4.8-10.8) K/uL RBC (4.40-5.90) Mil/uL Hgb (12.0-18.0) g/dL Hct (35.0-51.0) % MCV (80.0-94.0) fl MCH (27.0-31.0) pg MCHC (33.0-37.0) g/dL RDW (11.5-14.5) % Plt Count (130-400) K/uL MPV (7.2-11.7) fl Neut % (Auto) (50.0-75.0) % Lymph % (Auto) (20.0-40.0) % [place] % (Auto) (0.0-10.0) % Eos % (Auto) (0.0-4.0) % Baso % (Auto) (0.0-2.0) % Neut # (1.8-7.0) K/uL Lymph # (1.0-4.3) K/uL [place] # (0.0-0.8) K/uL Eos # (0.0-0.7) K/uL Baso # (0.0-0.2) K/uL pO2 (30-55) mm/Hg VBG pH (7.32-7.43) VBG pCO2 (40-60) mmHg VBG HCO3 mmol/L VBG Total CO2 (22-28) mmol/L VBG O2 Sat (Calc) (40-65) % VBG Base Excess (0.0-2.0) mmol/L VBG Potassium (3.6-5.2) mmol/L Sodium (132-148) mmol/L Chloride (98-107) mmol/L Glucose (75-110) mg/dL Lactate (0.7-2.1) mmol/L FiO2 % Potassium (3.6-5.0) MMOL/L Carbon Dioxide (22-30) mmol/L Anion Gap (10-20) BUN (9-20) mg/dl Creatinine (0.8-1.5) mg/dL Est GFR ( Amer) Est GFR (Non-Af Amer) POC Glucose (mg/dL) 242 H (65-110) mg/dL Random Glucose (75-110) mg/dL Lactic Acid (0.7-2.1) MMOL/L Calcium (8.4-10.2) mg/dL Total Bilirubin (0.2-1.3) mg/dl AST (17-59) U/L ALT (21-72) U/L Alkaline Phosphatase (38-126) U/L Total Creatine Kinase (55-170) U/L Total Protein (6.3-8.2) G/DL Albumin (3.5-5.0) g/dL Globulin (2.2-3.9) gm/dL Albumin/Globulin Ratio (1.0-2.1) Venous Blood Potassium (3.6-5.2) mmol/L Urine Color Yellow (YELLOW) Urine Clarity Slighty-cloudy (Clear) Urine pH 5.0 (5.0-8.0) Ur Specific [place] 1.025 (1.003-1.030) Urine Protein 30 (NEGATIVE) mg/dL Urine Glucose (UA) >=500 (Normal) mg/dL Urine Ketones 20 (NEGATIVE) mg/dL Urine Blood Negative (NEGATIVE) Urine Nitrate Negative (NEGATIVE) Urine Bilirubin Negative (NEGATIVE) Urine Urobilinogen 0.2-1.0 (0.2-1.0) mg/dL Ur Leukocyte Esterase Neg (Negative) Page/uL Urine RBC (Auto) 5 H (0-3) /hpf Urine Microscopic WBC 1 (0-5) /hpf Hyaline Casts 3-5 H (0-2) /hpf Fluid Type CSF Volume (0-1) mL CSF Appearance (CLEAR) CSF WBC (0.0-5.0) /mm3 CSF RBC (0.0-0.0) /mm3 CSF Total Cell Counted (0-0) CSF Neutrophils (0-0) % CSF Lymphocytes (0-0) % CSF Monos/Macrophages (0-0) % CSF Comment CSF Glucose 75 H (40-70) mg/dL CSF Total Protein (12-60) mg/dL Urine Opiates Screen (NEGATIVE) Urine Methadone Screen (NEGATIVE) Ur Barbiturates Screen (NEGATIVE) Ur Phencyclidine Scrn (NEGATIVE) Ur Amphetamines Screen (NEGATIVE) U Benzodiazepines Scrn (NEGATIVE) U Oth Cocaine Metabols (NEGATIVE) U Cannabinoids Screen (NEGATIVE) 07/12/17 07/12/17 07/12/17 Range/Units 13:45 13:34 12:53 WBC (4.8-10.8) K/uL RBC (4.40-5.90) Mil/uL Hgb (12.0-18.0) g/dL Hct (35.0-51.0) % MCV (80.0-94.0) fl MCH (27.0-31.0) pg MCHC (33.0-37.0) g/dL RDW (11.5-14.5) % Plt Count (130-400) K/uL MPV (7.2-11.7) fl Neut % (Auto) (50.0-75.0) % Lymph % (Auto) (20.0-40.0) % [place] % (Auto) (0.0-10.0) % Eos % (Auto) (0.0-4.0) % Baso % (Auto) (0.0-2.0) % Neut # (1.8-7.0) K/uL Lymph # (1.0-4.3) K/uL [place] # (0.0-0.8) K/uL Eos # (0.0-0.7) K/uL Baso # (0.0-0.2) K/uL pO2 29 L (30-55) mm/Hg VBG pH 7.21 L (7.32-7.43) VBG pCO2 64 H (40-60) mmHg VBG HCO3 20.3 mmol/L VBG Total CO2 27.6 (22-28) mmol/L VBG O2 Sat (Calc) 50.1 (40-65) % VBG Base Excess -3.9 L (0.0-2.0) mmol/L VBG Potassium 3.9 (3.6-5.2) mmol/L Sodium 140.0 (132-148) mmol/L Chloride 104.0 (98-107) mmol/L Glucose 254 H (75-110) mg/dL Lactate 3.1 H (0.7-2.1) mmol/L FiO2 21.0 % Potassium (3.6-5.0) MMOL/L Carbon Dioxide (22-30) mmol/L Anion Gap (10-20) BUN (9-20) mg/dl Creatinine (0.8-1.5) mg/dL Est GFR ( Amer) Est GFR (Non-Af Amer) POC Glucose (mg/dL) 363 H (65-110) mg/dL Random Glucose (75-110) mg/dL Lactic Acid (0.7-2.1) MMOL/L Calcium (8.4-10.2) mg/dL Total Bilirubin (0.2-1.3) mg/dl AST (17-59) U/L ALT (21-72) U/L Alkaline Phosphatase (38-126) U/L Total Creatine Kinase (55-170) U/L Total Protein (6.3-8.2) G/DL Albumin (3.5-5.0) g/dL Globulin (2.2-3.9) gm/dL Albumin/Globulin Ratio (1.0-2.1) Venous Blood Potassium 3.9 (3.6-5.2) mmol/L Urine Color (YELLOW) Urine Clarity (Clear) Urine pH (5.0-8.0) Ur Specific [place] (1.003-1.030) Urine Protein (NEGATIVE) mg/dL Urine Glucose (UA) (Normal) mg/dL Urine Ketones (NEGATIVE) mg/dL Urine Blood (NEGATIVE) Urine Nitrate (NEGATIVE) Urine Bilirubin (NEGATIVE) Urine Urobilinogen (0.2-1.0) mg/dL Ur Leukocyte Esterase (Negative) Page/uL Urine RBC (Auto) (0-3) /hpf Urine Microscopic WBC (0-5) /hpf Hyaline Casts (0-2) /hpf Fluid Type CSF Volume (0-1) mL CSF Appearance (CLEAR) CSF WBC (0.0-5.0) /mm3 CSF RBC (0.0-0.0) /mm3 CSF Total Cell Counted (0-0) CSF Neutrophils (0-0) % CSF Lymphocytes (0-0) % CSF Monos/Macrophages (0-0) % CSF Comment CSF Glucose (40-70) mg/dL CSF Total Protein (12-60) mg/dL Urine Opiates Screen Negative (NEGATIVE) Urine Methadone Screen Negative (NEGATIVE) Ur Barbiturates Screen Negative (NEGATIVE) Ur Phencyclidine Scrn Negative (NEGATIVE) Ur Amphetamines Screen Positive H (NEGATIVE) U Benzodiazepines Scrn Negative (NEGATIVE) U Oth Cocaine Metabols Negative (NEGATIVE) U Cannabinoids Screen Negative (NEGATIVE) 07/12/17 Range/Units 12:40 WBC (4.8-10.8) K/uL RBC (4.40-5.90) Mil/uL Hgb (12.0-18.0) g/dL Hct (35.0-51.0) % MCV (80.0-94.0) fl MCH (27.0-31.0) pg MCHC (33.0-37.0) g/dL RDW (11.5-14.5) % Plt Count (130-400) K/uL MPV (7.2-11.7) fl Neut % (Auto) (50.0-75.0) % Lymph % (Auto) (20.0-40.0) % [place] % (Auto) (0.0-10.0) % Eos % (Auto) (0.0-4.0) % Baso % (Auto) (0.0-2.0) % Neut # (1.8-7.0) K/uL Lymph # (1.0-4.3) K/uL [place] # (0.0-0.8) K/uL Eos # (0.0-0.7) K/uL Baso # (0.0-0.2) K/uL pO2 (30-55) mm/Hg VBG pH (7.32-7.43) VBG pCO2 (40-60) mmHg VBG HCO3 mmol/L VBG Total CO2 (22-28) mmol/L VBG O2 Sat (Calc) (40-65) % VBG Base Excess (0.0-2.0) mmol/L VBG Potassium (3.6-5.2) mmol/L Sodium (132-148) mmol/L Chloride (98-107) mmol/L Glucose (75-110) mg/dL Lactate (0.7-2.1) mmol/L FiO2 % Potassium (3.6-5.0) MMOL/L Carbon Dioxide (22-30) mmol/L Anion Gap (10-20) BUN (9-20) mg/dl Creatinine (0.8-1.5) mg/dL Est GFR ( Amer) Est GFR (Non-Af Amer) POC Glucose (mg/dL) 34 L* (65-110) mg/dL Random Glucose (75-110) mg/dL Lactic Acid (0.7-2.1) MMOL/L Calcium (8.4-10.2) mg/dL Total Bilirubin (0.2-1.3) mg/dl AST (17-59) U/L ALT (21-72) U/L Alkaline Phosphatase (38-126) U/L Total Creatine Kinase (55-170) U/L Total Protein (6.3-8.2) G/DL Albumin (3.5-5.0) g/dL Globulin (2.2-3.9) gm/dL Albumin/Globulin Ratio (1.0-2.1) Venous Blood Potassium (3.6-5.2) mmol/L Urine Color (YELLOW) Urine Clarity (Clear) Urine pH (5.0-8.0) Ur Specific [place] (1.003-1.030) Urine Protein (NEGATIVE) mg/dL Urine Glucose (UA) (Normal) mg/dL Urine Ketones (NEGATIVE) mg/dL Urine Blood (NEGATIVE) Urine Nitrate (NEGATIVE) Urine Bilirubin (NEGATIVE) Urine Urobilinogen (0.2-1.0) mg/dL Ur Leukocyte Esterase (Negative) Page/uL Urine RBC (Auto) (0-3) /hpf Urine Microscopic WBC (0-5) /hpf Hyaline Casts (0-2) /hpf Fluid Type CSF Volume (0-1) mL CSF Appearance (CLEAR) CSF WBC (0.0-5.0) /mm3 CSF RBC (0.0-0.0) /mm3 CSF Total Cell Counted (0-0) CSF Neutrophils (0-0) % CSF Lymphocytes (0-0) % CSF Monos/Macrophages (0-0) % CSF Comment CSF Glucose (40-70) mg/dL CSF Total Protein (12-60) mg/dL Urine Opiates Screen (NEGATIVE) Urine Methadone Screen (NEGATIVE) Ur Barbiturates Screen (NEGATIVE) Ur Phencyclidine Scrn (NEGATIVE) Ur Amphetamines Screen (NEGATIVE) U Benzodiazepines Scrn (NEGATIVE) U Oth Cocaine Metabols (NEGATIVE) U Cannabinoids Screen (NEGATIVE) Laboratory Results - last 24 hr 07/12/17 07/12/17 07/12/17 12:40 12:53 13:34 WBC RBC Hgb Hct MCV MCH MCHC RDW Plt Count MPV Neut % (Auto) Lymph % (Auto) [place] % (Auto) Eos % (Auto) Baso % (Auto) Neut # Lymph # [place] # Eos # Baso # pO2 29 L VBG pH 7.21 L VBG pCO2 64 H VBG HCO3 20.3 VBG Total CO2 27.6 VBG O2 Sat (Calc) 50.1 VBG Base Excess -3.9 L VBG Potassium 3.9 Sodium 140.0 Chloride 104.0 Glucose 254 H Lactate 3.1 H FiO2 21.0 Potassium Carbon Dioxide Anion Gap BUN Creatinine Est GFR ( Amer) Est GFR (Non-Af Amer) POC Glucose (mg/dL) 34 L* 363 H Random Glucose Lactic Acid Calcium Total Bilirubin AST ALT Alkaline Phosphatase Total Creatine Kinase Total Protein Albumin Globulin Albumin/Globulin Ratio Venous Blood Potassium 3.9 Urine Color Urine Clarity Urine pH Ur Specific [place] Urine Protein Urine Glucose (UA) Urine Ketones Urine Blood Urine Nitrate Urine Bilirubin Urine Urobilinogen Ur Leukocyte Esterase Urine RBC (Auto) Urine Microscopic WBC Hyaline Casts Fluid Type CSF Volume CSF Appearance CSF WBC CSF RBC CSF Total Cell Counted CSF Neutrophils CSF Lymphocytes CSF Monos/Macrophages CSF Comment CSF Glucose CSF Total Protein Urine Opiates Screen Urine Methadone Screen Ur Barbiturates Screen Ur Phencyclidine Scrn Ur Amphetamines Screen U Benzodiazepines Scrn U Oth Cocaine Metabols U Cannabinoids Screen 07/12/17 07/12/17 07/12/17 13:45 13:45 14:17 WBC RBC Hgb Hct MCV MCH MCHC RDW Plt Count MPV Neut % (Auto) Lymph % (Auto) [place] % (Auto) Eos % (Auto) Baso % (Auto) Neut # Lymph # [place] # Eos # Baso # pO2 VBG pH VBG pCO2 VBG HCO3 VBG Total CO2 VBG O2 Sat (Calc) VBG Base Excess VBG Potassium Sodium Chloride Glucose Lactate FiO2 Potassium Carbon Dioxide Anion Gap BUN Creatinine Est GFR ( Amer) Est GFR (Non-Af Amer) POC Glucose (mg/dL) 242 H Random Glucose Lactic Acid Calcium Total Bilirubin AST ALT Alkaline Phosphatase Total Creatine Kinase Total Protein Albumin Globulin Albumin/Globulin Ratio Venous Blood Potassium Urine Color Yellow Urine Clarity Slighty-cloudy Urine pH 5.0 Ur Specific [place] 1.025 Urine Protein 30 Urine Glucose (UA) >=500 Urine Ketones 20 Urine Blood Negative Urine Nitrate Negative Urine Bilirubin Negative Urine Urobilinogen 0.2-1.0 Ur Leukocyte Esterase Neg Urine RBC (Auto) 5 H Urine Microscopic WBC 1 Hyaline Casts 3-5 H Fluid Type CSF Volume CSF Appearance CSF WBC CSF RBC CSF Total Cell Counted CSF Neutrophils CSF Lymphocytes CSF Monos/Macrophages CSF Comment CSF Glucose CSF Total Protein Urine Opiates Screen Negative Urine Methadone Screen Negative Ur Barbiturates Screen Negative Ur Phencyclidine Scrn Negative Ur Amphetamines Screen Positive H U Benzodiazepines Scrn Negative U Oth Cocaine Metabols Negative U Cannabinoids Screen Negative 07/12/17 07/12/17 07/12/17 15:35 15:55 17:13 WBC RBC Hgb Hct MCV MCH MCHC RDW Plt Count MPV Neut % (Auto) Lymph % (Auto) [place] % (Auto) Eos % (Auto) Baso % (Auto) Neut # Lymph # [place] # Eos # Baso # pO2 VBG pH VBG pCO2 VBG HCO3 VBG Total CO2 VBG O2 Sat (Calc) VBG Base Excess VBG Potassium Sodium Chloride Glucose Lactate FiO2 Potassium Carbon Dioxide Anion Gap BUN Creatinine Est GFR ( Amer) Est GFR (Non-Af Amer) POC Glucose (mg/dL) Random Glucose Lactic Acid Calcium Total Bilirubin AST ALT Alkaline Phosphatase Total Creatine Kinase Total Protein Albumin Globulin Albumin/Globulin Ratio Venous Blood Potassium Urine Color Urine Clarity Urine pH Ur Specific [place] Urine Protein Urine Glucose (UA) Urine Ketones Urine Blood Urine Nitrate Urine Bilirubin Urine Urobilinogen Ur Leukocyte Esterase Urine RBC (Auto) Urine Microscopic WBC Hyaline Casts Fluid Type Spinal fluid CSF Volume 2 H CSF Appearance Clear/colorless CSF WBC 0.0 CSF RBC 11.0 H CSF Total Cell Counted 8 H CSF Neutrophils 2 H CSF Lymphocytes 6.0 H CSF Monos/Macrophages 0 CSF Comment Clear CSF Glucose 75 H CSF Total Protein 50.0 Urine Opiates Screen Urine Methadone Screen Ur Barbiturates Screen Ur Phencyclidine Scrn Ur Amphetamines Screen U Benzodiazepines Scrn U Oth Cocaine Metabols U Cannabinoids Screen 07/12/17 07/12/17 07/12/17 17:27 17:34 17:41 WBC RBC Hgb Hct MCV MCH MCHC RDW Plt Count MPV Neut % (Auto) Lymph % (Auto) [place] % (Auto) Eos % (Auto) Baso % (Auto) Neut # Lymph # [place] # Eos # Baso # pO2 64 H VBG pH 7.32 VBG pCO2 43 VBG HCO3 21.7 VBG Total CO2 23.5 VBG O2 Sat (Calc) 96.0 H VBG Base Excess -3.9 L VBG Potassium 3.3 L Sodium 140.0 Chloride 110.0 H Glucose 140 H Lactate 2.4 H FiO2 21.0 Potassium Carbon Dioxide Anion Gap BUN Creatinine Est GFR ( Amer) Est GFR (Non-Af Amer) POC Glucose (mg/dL) 157 H Random Glucose Lactic Acid Calcium Total Bilirubin AST ALT Alkaline Phosphatase Total Creatine Kinase 82 Total Protein Albumin Globulin Albumin/Globulin Ratio Venous Blood Potassium 3.3 L Urine Color Urine Clarity Urine pH Ur Specific [place] Urine Protein Urine Glucose (UA) Urine Ketones Urine Blood Urine Nitrate Urine Bilirubin Urine Urobilinogen Ur Leukocyte Esterase Urine RBC (Auto) Urine Microscopic WBC Hyaline Casts Fluid Type CSF Volume CSF Appearance CSF WBC CSF RBC CSF Total Cell Counted CSF Neutrophils CSF Lymphocytes CSF Monos/Macrophages CSF Comment CSF Glucose CSF Total Protein Urine Opiates Screen Urine Methadone Screen Ur Barbiturates Screen Ur Phencyclidine Scrn Ur Amphetamines Screen U Benzodiazepines Scrn U Oth Cocaine Metabols U Cannabinoids Screen 07/12/17 07/12/17 07/12/17 20:02 20:02 22:39 WBC 8.0 D RBC 4.54 Hgb 13.3 D Hct 40.2 MCV 88.6 MCH 29.4 MCHC 33.2 RDW 13.1 Plt Count 259 D MPV 7.9 Neut % (Auto) 77.4 H Lymph % (Auto) 16.7 L [place] % (Auto) 5.1 Eos % (Auto) 0.4 Baso % (Auto) 0.4 Neut # 6.2 Lymph # 1.3 [place] # 0.4 Eos # 0.0 Baso # 0.0 pO2 VBG pH VBG pCO2 VBG HCO3 VBG Total CO2 VBG O2 Sat (Calc) VBG Base Excess VBG Potassium Sodium 144 Chloride 112 H Glucose Lactate FiO2 Potassium 3.4 L Carbon Dioxide 19 L Anion Gap 16 BUN 9 Creatinine 0.7 L Est GFR ( Amer) > 60 Est GFR (Non-Af Amer) > 60 POC Glucose (mg/dL) 64 L Random Glucose 121 H Lactic Acid Calcium 7.8 L Total Bilirubin 0.1 L AST 26 ALT 27 Alkaline Phosphatase 75 Total Creatine Kinase Total Protein 5.9 L Albumin 3.3 L D Globulin 2.5 Albumin/Globulin Ratio 1.3 Venous Blood Potassium Urine Color Urine Clarity Urine pH Ur Specific [place] Urine Protein Urine Glucose (UA) Urine Ketones Urine Blood Urine Nitrate Urine Bilirubin Urine Urobilinogen Ur Leukocyte Esterase Urine RBC (Auto) Urine Microscopic WBC Hyaline Casts Fluid Type CSF Volume CSF Appearance CSF WBC CSF RBC CSF Total Cell Counted CSF Neutrophils CSF Lymphocytes CSF Monos/Macrophages CSF Comment CSF Glucose CSF Total Protein Urine Opiates Screen Urine Methadone Screen Ur Barbiturates Screen Ur Phencyclidine Scrn Ur Amphetamines Screen U Benzodiazepines Scrn U Oth Cocaine Metabols U Cannabinoids Screen 07/12/17 07/13/17 07/13/17 23:43 04:30 04:30 WBC 10.6 RBC 4.65 Hgb 13.6 Hct 41.0 MCV 88.3 MCH 29.3 MCHC 33.2 RDW 13.3 Plt Count 249 MPV 8.0 Neut % (Auto) 73.6 Lymph % (Auto) 13.9 L [place] % (Auto) 10.4 H Eos % (Auto) 1.8 Baso % (Auto) 0.3 Neut # 7.8 H Lymph # 1.5 [place] # 1.1 H Eos # 0.2 Baso # 0.0 pO2 VBG pH VBG pCO2 VBG HCO3 VBG Total CO2 VBG O2 Sat (Calc) VBG Base Excess VBG Potassium Sodium 140 Chloride 107 Glucose Lactate FiO2 Potassium 3.7 Carbon Dioxide 23 Anion Gap 14 BUN 8 L Creatinine 0.7 L Est GFR ( Amer) > 60 Est GFR (Non-Af Amer) > 60 POC Glucose (mg/dL) 75 Random Glucose 89 Lactic Acid Calcium 8.5 Total Bilirubin AST ALT Alkaline Phosphatase Total Creatine Kinase Total Protein Albumin Globulin Albumin/Globulin Ratio Venous Blood Potassium Urine Color Urine Clarity Urine pH Ur Specific [place] Urine Protein Urine Glucose (UA) Urine Ketones Urine Blood Urine Nitrate Urine Bilirubin Urine Urobilinogen Ur Leukocyte Esterase Urine RBC (Auto) Urine Microscopic WBC Hyaline Casts Fluid Type CSF Volume CSF Appearance CSF WBC CSF RBC CSF Total Cell Counted CSF Neutrophils CSF Lymphocytes CSF Monos/Macrophages CSF Comment CSF Glucose CSF Total Protein Urine Opiates Screen Urine Methadone Screen Ur Barbiturates Screen Ur Phencyclidine Scrn Ur Amphetamines Screen U Benzodiazepines Scrn U Oth Cocaine Metabols U Cannabinoids Screen 07/13/17 04:30 WBC RBC Hgb Hct MCV MCH MCHC RDW Plt Count MPV Neut % (Auto) Lymph % (Auto) [place] % (Auto) Eos % (Auto) Baso % (Auto) Neut # Lymph # [place] # Eos # Baso # pO2 VBG pH VBG pCO2 VBG HCO3 VBG Total CO2 VBG O2 Sat (Calc) VBG Base Excess VBG Potassium Sodium Chloride Glucose Lactate FiO2 Potassium Carbon Dioxide Anion Gap BUN Creatinine Est GFR ( Amer) Est GFR (Non-Af Amer) POC Glucose (mg/dL) Random Glucose Lactic Acid 0.8 Calcium Total Bilirubin AST ALT Alkaline Phosphatase Total Creatine Kinase Total Protein Albumin Globulin Albumin/Globulin Ratio Venous Blood Potassium Urine Color Urine Clarity Urine pH Ur Specific [place] Urine Protein Urine Glucose (UA) Urine Ketones Urine Blood Urine Nitrate Urine Bilirubin Urine Urobilinogen Ur Leukocyte Esterase Urine RBC (Auto) Urine Microscopic WBC Hyaline Casts Fluid Type CSF Volume CSF Appearance CSF WBC CSF RBC CSF Total Cell Counted CSF Neutrophils CSF Lymphocytes CSF Monos/Macrophages CSF Comment CSF Glucose CSF Total Protein Urine Opiates Screen Urine Methadone Screen Ur Barbiturates Screen Ur Phencyclidine Scrn Ur Amphetamines Screen U Benzodiazepines Scrn U Oth Cocaine Metabols U Cannabinoids Screen Assessment/Plan - Assessment and Plan (Free Text) Plan: ATTESTATION: Patient seen and examined at the bedside with Resident Dr. Celia Camacho; and I agree with his outline of plans and management as documented below and discussed on AM rounds today, July 13, 2017. Any exceptions or additions are listed in my personal note that follows and reflects my review of all applicable clinical data, and participation in the care of the patient throughout the day in ICU. Review of all admission HPI, labs and imaging shows patient presented with Alcoholic Ketoacidosis and in my opinion, there is no basis for any Septic physiology despite the elevated Lactates, tachycardia, and initial leukocytosis. 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 He was hypovolemic on presentation, and as a consequence may have had transient hypoperfusion. Lactate elevation is common with AKA. No serum ketones or beta-OH levels were drawn nor any serum osmolarity studies were obtained, since he presented with an anion gap metabolic acidosis. Procalcitonin level has been ordered. If normal, would stop all antibiotics. Doubt any evidence of [employer] viral encephalitis, and he denies any h/o seizures, but admits to tremors which prompts him to imbibe alcohol. Stable for transfer out of ICU to regular bed. MY Diagnoses: 1. AKA 2. ETOH Intoxication 3. Hypovolemic Shock 4. Amphetamine OD
--- NOTE | 2017-07-13 12:06 | CP.PCM.CON ---
History of Present Illness - History of Present Illness History of Present Illness: Mr. Bautista is a 36-year-old man with a history of alcoholism, who was found unresponsive and labs demonstrated acidosis with leukocytosis. There was concern for meningitis or another infection and an LP was performed with CSF analysis yielding 0 WBC. He was managed acutely in the ICU and today is back to baseline with no complaints. His initial serum alcohol level was over 250 and he admitted to drinking a pint of vodka after a period of sobriety. He also has not eaten for the last 5 days due to some stress/depression. Review of Systems - Review of Systems All systems: reviewed and no additional remarkable complaints except Past Patient History - Past Medical History & Family History Past Medical History?: Yes - Past Social History Alcohol: > 2 Drinks/Day - CARDIAC Hx Hypertension: Yes - PULMONARY Hx Respiratory Disorders: No - NEUROLOGICAL Hx Neurological Disorder: No - HEENT Hx HEENT Problems: No - RENAL Hx Chronic Kidney Disease: No - ENDOCRINE/METABOLIC Hx Endocrine Disorders: No - HEMATOLOGICAL/ONCOLOGICAL Hx Blood Disorders: No Hx AIDS: No Hx Human Immunodeficiency Virus (HIV): No - INTEGUMENTARY Hx Dermatological Problems: No - MUSCULOSKELETAL/RHEUMATOLOGICAL Hx Musculoskeletal Disorders: No Hx Falls: Yes - GASTROINTESTINAL Hx Gastrointestinal Disorders: No - GENITOURINARY/GYNECOLOGICAL Hx Genitourinary Disorders: No - PSYCHIATRIC Hx Psychophysiologic Disorder: Yes Hx Anxiety: Yes Hx Depression: Yes Hx Substance Use: No Other/Comment: ADHD - SURGICAL HISTORY Hx Surgeries: No - ANESTHESIA Hx Anesthesia: No Meds Allergies/Adverse Reactions: Allergies Allergy/AdvReac Type Severity Reaction Status Date / Time No Known Allergies Allergy Verified 07/12/17 12:29 - Medications Medications: Current Medications Enoxaparin Sodium (Lovenox) 40 mg SC DAILY ANJELICA PRN Reason: Protocol Last Admin: 07/13/17 09:48 Dose: 40 mg Folic Acid (Folic Acid) 1 mg PO DAILY ANJELICA Norepinephrine Bitartrate 4 mg (/ Dextrose) 254 mls @ 19.05 mls/hr IV .[id number] ANJELICA; 5 MCG/MIN PRN Reason: Protocol Last Admin: 07/12/17 18:40 Dose: 19.05 mls/hr Vancomycin HCl 1 gm/ Sodium (Chloride) 250 mls @ 166.667 mls/hr IVPB DAILY ANJELICA Last Admin: 07/13/17 09:47 Dose: 166.667 mls/hr Azithromycin 500 mg/ Sodium (Chloride) 250 mls @ 250 mls/hr IVPB DAILY ANJELICA Last Admin: 07/13/17 09:51 Dose: 250 mls/hr Ceftriaxone Sodium 1 gm/ (Sodium Chloride) 100 mls @ 100 mls/hr IVPB Q12 ANJELICA Last Admin: 07/13/17 09:46 Dose: 100 mls/hr Dextrose/Sodium Chloride (Dextrose 5%/0.9% Ns 1000 Ml) 1,000 mls @ 125 mls/hr IV .Q8H ANJELICA Stop: 07/14/17 10:15 Pantoprazole Sodium (Protonix Inj) 40 mg IVP DAILY ANJELICA Last Admin: 07/13/17 09:46 Dose: 40 mg Pantoprazole Sodium (Protonix Ec Tab) 40 mg PO DAILY ANJELICA Thiamine HCl (Vitamin B1 Tab) 50 mg PO DAILY ANJELICA Physical Exam - Constitutional Appears: Well - Head Exam Head Exam: ATRAUMATIC, NORMAL INSPECTION, NORMOCEPHALIC - Eye Exam Eye Exam: EOMI, Normal appearance, PERRL - ENT Exam ENT Exam: Mucous Membranes Moist, Normal Exam - Neck Exam Neck exam: Positive for: Normal Inspection - Respiratory Exam Respiratory Exam: Clear to Auscultation Bilateral, NORMAL BREATHING PATTERN - Cardiovascular Exam Cardiovascular Exam: REGULAR RHYTHM, +S1, +S2 - GI/Abdominal Exam GI & Abdominal Exam: Normal Bowel Sounds, Soft. absent: Tenderness - Rectal Exam Rectal Exam: Deferred - Extremities Exam Extremities exam: Positive for: normal inspection - Back Exam Back exam: NORMAL INSPECTION - Neurological Exam Neurological exam: Alert, CN II-XII Intact, Normal Gait, Oriented x3, Reflexes Normal - Psychiatric Exam Psychiatric exam: Normal Affect, Normal Mood - Skin Skin Exam: Dry, Intact, Normal Color, Warm Results - Vital Signs Recent Vital Signs: Last Vital Signs Temp 98.4 F 07/13/17 08:00 Pulse 82 07/13/17 08:00 Resp 19 07/13/17 08:00 BP 117/66 07/13/17 08:00 Pulse Ox 98 07/13/17 09:51 - Labs Result Diagrams: 07/13/17 04:30 07/13/17 04:30 Labs: Laboratory Results - last 24 hr 07/12/17 07/12/17 07/12/17 10:55 10:55 12:40 WBC 30.0 H RBC 5.56 Hgb 16.3 Hct 48.8 MCV 87.7 MCH 29.3 MCHC 33.4 RDW 13.2 Plt Count 391 MPV 7.8 Neut % (Auto) 84.5 H Lymph % (Auto) 11.7 L Long % (Auto) 2.9 Eos % (Auto) 0.4 Baso % (Auto) 0.5 Neut # 25.4 H Lymph # 3.5 Long # 0.9 H Eos # 0.1 Baso # 0.1 pO2 VBG pH VBG pCO2 VBG HCO3 VBG Total CO2 VBG O2 Sat (Calc) VBG Base Excess VBG Potassium Glucose Lactate FiO2 Sodium 150 H Potassium 3.8 Chloride 107 Carbon Dioxide 21 L Anion Gap 26 H BUN 13 Creatinine 0.9 Est GFR ( Amer) > 60 Est GFR (Non-Af Amer) > 60 POC Glucose (mg/dL) 34 L* Random Glucose 43 L Lactic Acid Calcium 9.5 Total Bilirubin 0.6 AST 41 ALT 32 Alkaline Phosphatase 121 Total Creatine Kinase Total Protein 8.4 H Albumin 4.8 Globulin 3.6 Albumin/Globulin Ratio 1.3 Venous Blood Potassium Urine Color Urine Clarity Urine pH Ur Specific [place] Urine Protein Urine Glucose (UA) Urine Ketones Urine Blood Urine Nitrate Urine Bilirubin Urine Urobilinogen Ur Leukocyte Esterase Urine RBC (Auto) Urine Microscopic WBC Hyaline Casts Fluid Type CSF Volume CSF Appearance CSF WBC CSF RBC CSF Total Cell Counted CSF Neutrophils CSF Lymphocytes CSF Monos/Macrophages CSF Comment CSF Glucose CSF Total Protein Urine Opiates Screen Urine Methadone Screen Ur Barbiturates Screen Ur Phencyclidine Scrn Ur Amphetamines Screen U Benzodiazepines Scrn U Oth Cocaine Metabols U Cannabinoids Screen Alcohol, Quantitative 258 H 07/12/17 07/12/17 07/12/17 12:53 13:34 13:45 WBC RBC Hgb Hct MCV MCH MCHC RDW Plt Count MPV Neut % (Auto) Lymph % (Auto) Long % (Auto) Eos % (Auto) Baso % (Auto) Neut # Lymph # Long # Eos # Baso # pO2 29 L VBG pH 7.21 L VBG pCO2 64 H VBG HCO3 20.3 VBG Total CO2 27.6 VBG O2 Sat (Calc) 50.1 VBG Base Excess -3.9 L VBG Potassium 3.9 Glucose 254 H Lactate 3.1 H FiO2 21.0 Sodium 140.0 Potassium Chloride 104.0 Carbon Dioxide Anion Gap BUN Creatinine Est GFR ( Amer) Est GFR (Non-Af Amer) POC Glucose (mg/dL) 363 H Random Glucose Lactic Acid Calcium Total Bilirubin AST ALT Alkaline Phosphatase Total Creatine Kinase Total Protein Albumin Globulin Albumin/Globulin Ratio Venous Blood Potassium 3.9 Urine Color Urine Clarity Urine pH Ur Specific [place] Urine Protein Urine Glucose (UA) Urine Ketones Urine Blood Urine Nitrate Urine Bilirubin Urine Urobilinogen Ur Leukocyte Esterase Urine RBC (Auto) Urine Microscopic WBC Hyaline Casts Fluid Type CSF Volume CSF Appearance CSF WBC CSF RBC CSF Total Cell Counted CSF Neutrophils CSF Lymphocytes CSF Monos/Macrophages CSF Comment CSF Glucose CSF Total Protein Urine Opiates Screen Negative Urine Methadone Screen Negative Ur Barbiturates Screen Negative Ur Phencyclidine Scrn Negative Ur Amphetamines Screen Positive H U Benzodiazepines Scrn Negative U Oth Cocaine Metabols Negative U Cannabinoids Screen Negative Alcohol, Quantitative 07/12/17 07/12/17 07/12/17 13:45 14:17 15:35 WBC RBC Hgb Hct MCV MCH MCHC RDW Plt Count MPV Neut % (Auto) Lymph % (Auto) Long % (Auto) Eos % (Auto) Baso % (Auto) Neut # Lymph # Long # Eos # Baso # pO2 VBG pH VBG pCO2 VBG HCO3 VBG Total CO2 VBG O2 Sat (Calc) VBG Base Excess VBG Potassium Glucose Lactate FiO2 Sodium Potassium Chloride Carbon Dioxide Anion Gap BUN Creatinine Est GFR ( Amer) Est GFR (Non-Af Amer) POC Glucose (mg/dL) 242 H Random Glucose Lactic Acid Calcium Total Bilirubin AST ALT Alkaline Phosphatase Total Creatine Kinase Total Protein Albumin Globulin Albumin/Globulin Ratio Venous Blood Potassium Urine Color Yellow Urine Clarity Slighty-cloudy Urine pH 5.0 Ur Specific [place] 1.025 Urine Protein 30 Urine Glucose (UA) >=500 Urine Ketones 20 Urine Blood Negative Urine Nitrate Negative Urine Bilirubin Negative Urine Urobilinogen 0.2-1.0 Ur Leukocyte Esterase Neg Urine RBC (Auto) 5 H Urine Microscopic WBC 1 Hyaline Casts 3-5 H Fluid Type CSF Volume CSF Appearance CSF WBC CSF RBC CSF Total Cell Counted CSF Neutrophils CSF Lymphocytes CSF Monos/Macrophages CSF Comment CSF Glucose 75 H CSF Total Protein Urine Opiates Screen Urine Methadone Screen Ur Barbiturates Screen Ur Phencyclidine Scrn Ur Amphetamines Screen U Benzodiazepines Scrn U Oth Cocaine Metabols U Cannabinoids Screen Alcohol, Quantitative 07/12/17 07/12/17 07/12/17 15:55 17:13 17:27 WBC RBC Hgb Hct MCV MCH MCHC RDW Plt Count MPV Neut % (Auto) Lymph % (Auto) Long % (Auto) Eos % (Auto) Baso % (Auto) Neut # Lymph # Long # Eos # Baso # pO2 VBG pH VBG pCO2 VBG HCO3 VBG Total CO2 VBG O2 Sat (Calc) VBG Base Excess VBG Potassium Glucose Lactate FiO2 Sodium Potassium Chloride Carbon Dioxide Anion Gap BUN Creatinine Est GFR ( Amer) Est GFR (Non-Af Amer) POC Glucose (mg/dL) 157 H Random Glucose Lactic Acid Calcium Total Bilirubin AST ALT Alkaline Phosphatase Total Creatine Kinase Total Protein Albumin Globulin Albumin/Globulin Ratio Venous Blood Potassium Urine Color Urine Clarity Urine pH Ur Specific [place] Urine Protein Urine Glucose (UA) Urine Ketones Urine Blood Urine Nitrate Urine Bilirubin Urine Urobilinogen Ur Leukocyte Esterase Urine RBC (Auto) Urine Microscopic WBC Hyaline Casts Fluid Type Spinal fluid CSF Volume 2 H CSF Appearance Clear/colorless CSF WBC 0.0 CSF RBC 11.0 H CSF Total Cell Counted 8 H CSF Neutrophils 2 H CSF Lymphocytes 6.0 H CSF Monos/Macrophages 0 CSF Comment Clear CSF Glucose CSF Total Protein 50.0 Urine Opiates Screen Urine Methadone Screen Ur Barbiturates Screen Ur Phencyclidine Scrn Ur Amphetamines Screen U Benzodiazepines Scrn U Oth Cocaine Metabols U Cannabinoids Screen Alcohol, Quantitative 07/12/17 07/12/17 07/12/17 17:34 17:41 20:02 WBC 8.0 D RBC 4.54 Hgb 13.3 D Hct 40.2 MCV 88.6 MCH 29.4 MCHC 33.2 RDW 13.1 Plt Count 259 D MPV 7.9 Neut % (Auto) 77.4 H Lymph % (Auto) 16.7 L Long % (Auto) 5.1 Eos % (Auto) 0.4 Baso % (Auto) 0.4 Neut # 6.2 Lymph # 1.3 Long # 0.4 Eos # 0.0 Baso # 0.0 pO2 64 H VBG pH 7.32 VBG pCO2 43 VBG HCO3 21.7 VBG Total CO2 23.5 VBG O2 Sat (Calc) 96.0 H VBG Base Excess -3.9 L VBG Potassium 3.3 L Glucose 140 H Lactate 2.4 H FiO2 21.0 Sodium 140.0 Potassium Chloride 110.0 H Carbon Dioxide Anion Gap BUN Creatinine Est GFR ( Amer) Est GFR (Non-Af Amer) POC Glucose (mg/dL) Random Glucose Lactic Acid Calcium Total Bilirubin AST ALT Alkaline Phosphatase Total Creatine Kinase 82 Total Protein Albumin Globulin Albumin/Globulin Ratio Venous Blood Potassium 3.3 L Urine Color Urine Clarity Urine pH Ur Specific [place] Urine Protein Urine Glucose (UA) Urine Ketones Urine Blood Urine Nitrate Urine Bilirubin Urine Urobilinogen Ur Leukocyte Esterase Urine RBC (Auto) Urine Microscopic WBC Hyaline Casts Fluid Type CSF Volume CSF Appearance CSF WBC CSF RBC CSF Total Cell Counted CSF Neutrophils CSF Lymphocytes CSF Monos/Macrophages CSF Comment CSF Glucose CSF Total Protein Urine Opiates Screen Urine Methadone Screen Ur Barbiturates Screen Ur Phencyclidine Scrn Ur Amphetamines Screen U Benzodiazepines Scrn U Oth Cocaine Metabols U Cannabinoids Screen Alcohol, Quantitative 07/12/17 07/12/17 07/12/17 20:02 22:39 23:43 WBC RBC Hgb Hct MCV MCH MCHC RDW Plt Count MPV Neut % (Auto) Lymph % (Auto) Long % (Auto) Eos % (Auto) Baso % (Auto) Neut # Lymph # Long # Eos # Baso # pO2 VBG pH VBG pCO2 VBG HCO3 VBG Total CO2 VBG O2 Sat (Calc) VBG Base Excess VBG Potassium Glucose Lactate FiO2 Sodium 144 Potassium 3.4 L Chloride 112 H Carbon Dioxide 19 L Anion Gap 16 BUN 9 Creatinine 0.7 L Est GFR ( Amer) > 60 Est GFR (Non-Af Amer) > 60 POC Glucose (mg/dL) 64 L 75 Random Glucose 121 H Lactic Acid Calcium 7.8 L Total Bilirubin 0.1 L AST 26 ALT 27 Alkaline Phosphatase 75 Total Creatine Kinase Total Protein 5.9 L Albumin 3.3 L D Globulin 2.5 Albumin/Globulin Ratio 1.3 Venous Blood Potassium Urine Color Urine Clarity Urine pH Ur Specific [place] Urine Protein Urine Glucose (UA) Urine Ketones Urine Blood Urine Nitrate Urine Bilirubin Urine Urobilinogen Ur Leukocyte Esterase Urine RBC (Auto) Urine Microscopic WBC Hyaline Casts Fluid Type CSF Volume CSF Appearance CSF WBC CSF RBC CSF Total Cell Counted CSF Neutrophils CSF Lymphocytes CSF Monos/Macrophages CSF Comment CSF Glucose CSF Total Protein Urine Opiates Screen Urine Methadone Screen Ur Barbiturates Screen Ur Phencyclidine Scrn Ur Amphetamines Screen U Benzodiazepines Scrn U Oth Cocaine Metabols U Cannabinoids Screen Alcohol, Quantitative 07/13/17 07/13/17 07/13/17 04:30 04:30 04:30 WBC 10.6 RBC 4.65 Hgb 13.6 Hct 41.0 MCV 88.3 MCH 29.3 MCHC 33.2 RDW 13.3 Plt Count 249 MPV 8.0 Neut % (Auto) 73.6 Lymph % (Auto) 13.9 L Long % (Auto) 10.4 H Eos % (Auto) 1.8 Baso % (Auto) 0.3 Neut # 7.8 H Lymph # 1.5 Long # 1.1 H Eos # 0.2 Baso # 0.0 pO2 VBG pH VBG pCO2 VBG HCO3 VBG Total CO2 VBG O2 Sat (Calc) VBG Base Excess VBG Potassium Glucose Lactate FiO2 Sodium 140 Potassium 3.7 Chloride 107 Carbon Dioxide 23 Anion Gap 14 BUN 8 L Creatinine 0.7 L Est GFR ( Amer) > 60 Est GFR (Non-Af Amer) > 60 POC Glucose (mg/dL) Random Glucose 89 Lactic Acid 0.8 Calcium 8.5 Total Bilirubin AST ALT Alkaline Phosphatase Total Creatine Kinase Total Protein Albumin Globulin Albumin/Globulin Ratio Venous Blood Potassium Urine Color Urine Clarity Urine pH Ur Specific [place] Urine Protein Urine Glucose (UA) Urine Ketones Urine Blood Urine Nitrate Urine Bilirubin Urine Urobilinogen Ur Leukocyte Esterase Urine RBC (Auto) Urine Microscopic WBC Hyaline Casts Fluid Type CSF Volume CSF Appearance CSF WBC CSF RBC CSF Total Cell Counted CSF Neutrophils CSF Lymphocytes CSF Monos/Macrophages CSF Comment CSF Glucose CSF Total Protein Urine Opiates Screen Urine Methadone Screen Ur Barbiturates Screen Ur Phencyclidine Scrn Ur Amphetamines Screen U Benzodiazepines Scrn U Oth Cocaine Metabols U Cannabinoids Screen Alcohol, Quantitative - Imaging and Cardiology CT scan - head Status: Image reviewed by me, Report reviewed by me (Normal.) Assessment & Plan - Assessment and Plan (Free Text) Assessment: The patient likely lost consciousness due to alcoholic ketoacidosis and extreme intoxication. Once cleared from his system, he improved and is now back to baseline. The CSF analysis is not consistent with meningitis or any infection. Plan: D/C treatment for meningitis. Continue supportive care. Psych consult. Thank you.
--- NOTE | 2017-07-13 13:30 | CP.PCM.DIS ---
Provider - Provider Date of Admission: 07/12/17 17:26 Attending physician: Joaquín Garcia MD Time Spent in preparation of Discharge (in minutes): 30 Diagnosis - Discharge Diagnosis (1) Alcoholic ketoacidosis Status: Acute Priority: High (2) ETOH abuse Status: Acute Priority: High (3) Hypovolemic shock Status: Acute Priority: High Hospital Course - Lab Results Lab Results: Micro Results 07/12/17 13:45 Urine,Clean Catch Urine Culture - Final No Growth (<1,000 CFU/ML) 07/12/17 15:35 Cerebral Spinal Fluid Gram Stain - Final Most Recent Lab Values WBC 10.6 K/uL (4.8-10.8) 07/13/17 04:30 RBC 4.65 Mil/uL (4.40-5.90) 07/13/17 04:30 Hgb 13.6 g/dL (12.0-18.0) 07/13/17 04:30 Hct 41.0 % (35.0-51.0) 07/13/17 04:30 MCV 88.3 fl (80.0-94.0) 07/13/17 04:30 MCH 29.3 pg (27.0-31.0) 07/13/17 04:30 MCHC 33.2 g/dL (33.0-37.0) 07/13/17 04:30 RDW 13.3 % (11.5-14.5) 07/13/17 04:30 Plt Count 249 K/uL (130-400) 07/13/17 04:30 MPV 8.0 fl (7.2-11.7) 07/13/17 04:30 Neut % (Auto) 73.6 % (50.0-75.0) 07/13/17 04:30 Lymph % (Auto) 13.9 % (20.0-40.0) L 07/13/17 04:30 Butts % (Auto) 10.4 % (0.0-10.0) H 07/13/17 04:30 Eos % (Auto) 1.8 % (0.0-4.0) 07/13/17 04:30 Baso % (Auto) 0.3 % (0.0-2.0) 07/13/17 04:30 Neut # 7.8 K/uL (1.8-7.0) H 07/13/17 04:30 Lymph # 1.5 K/uL (1.0-4.3) 07/13/17 04:30 Butts # 1.1 K/uL (0.0-0.8) H 07/13/17 04:30 Eos # 0.2 K/uL (0.0-0.7) 07/13/17 04:30 Baso # 0.0 K/uL (0.0-0.2) 07/13/17 04:30 pO2 64 mm/Hg (30-55) H 07/12/17 17:41 VBG pH 7.32 (7.32-7.43) 07/12/17 17:41 VBG pCO2 43 mmHg (40-60) 07/12/17 17:41 VBG HCO3 21.7 mmol/L 07/12/17 17:41 VBG Total CO2 23.5 mmol/L (22-28) 07/12/17 17:41 VBG O2 Sat (Calc) 96.0 % (40-65) H 07/12/17 17:41 VBG Base Excess -3.9 mmol/L (0.0-2.0) L 07/12/17 17:41 VBG Potassium 3.3 mmol/L (3.6-5.2) L 07/12/17 17:41 Sodium 140.0 mmol/L (132-148) 07/12/17 17:41 Chloride 110.0 mmol/L (98-107) H 07/12/17 17:41 Glucose 140 mg/dL (75-110) H 07/12/17 17:41 Lactate 2.4 mmol/L (0.7-2.1) H 07/12/17 17:41 FiO2 21.0 % 07/12/17 17:41 Sodium 140 mmol/l (132-148) 07/13/17 04:30 Potassium 3.7 MMOL/L (3.6-5.0) 07/13/17 04:30 Chloride 107 mmol/L (98-107) 07/13/17 04:30 Carbon Dioxide 23 mmol/L (22-30) 07/13/17 04:30 Anion Gap 14 (10-20) 07/13/17 04:30 BUN 8 mg/dl (9-20) L 07/13/17 04:30 Creatinine 0.7 mg/dL (0.8-1.5) L 07/13/17 04:30 Est GFR ( Amer) > 60 07/13/17 04:30 Est GFR (Non-Af Amer) > 60 07/13/17 04:30 POC Glucose (mg/dL) 75 mg/dL (65-110) 07/12/17 23:43 Random Glucose 89 mg/dL (75-110) 07/13/17 04:30 Lactic Acid 0.8 MMOL/L (0.7-2.1) 07/13/17 04:30 Calcium 8.5 mg/dL (8.4-10.2) 07/13/17 04:30 Total Bilirubin 0.1 mg/dl (0.2-1.3) L 07/12/17 20:02 AST 26 U/L (17-59) 07/12/17 20:02 ALT 27 U/L (21-72) 07/12/17 20:02 Alkaline Phosphatase 75 U/L (38-126) 07/12/17 20:02 Total Creatine Kinase 82 U/L (55-170) 07/12/17 17:34 Total Protein 5.9 G/DL (6.3-8.2) L 07/12/17 20:02 Albumin 3.3 g/dL (3.5-5.0) L D 07/12/17 20:02 Globulin 2.5 gm/dL (2.2-3.9) 07/12/17 20:02 Albumin/Globulin Ratio 1.3 (1.0-2.1) 07/12/17 20:02 Venous Blood Potassium 3.3 mmol/L (3.6-5.2) L 07/12/17 17:41 Urine Color Yellow (YELLOW) 07/12/17 13:45 Urine Clarity Slighty-cloudy (Clear) 07/12/17 13:45 Urine pH 5.0 (5.0-8.0) 07/12/17 13:45 Ur Specific [place] 1.025 (1.003-1.030) 07/12/17 13:45 Urine Protein 30 mg/dL (NEGATIVE) 07/12/17 13:45 Urine Glucose (UA) >=500 mg/dL (Normal) 07/12/17 13:45 Urine Ketones 20 mg/dL (NEGATIVE) 07/12/17 13:45 Urine Blood Negative (NEGATIVE) 07/12/17 13:45 Urine Nitrate Negative (NEGATIVE) 07/12/17 13:45 Urine Bilirubin Negative (NEGATIVE) 07/12/17 13:45 Urine Urobilinogen 0.2-1.0 mg/dL (0.2-1.0) 07/12/17 13:45 Ur Leukocyte Esterase Neg Page/uL (Negative) 07/12/17 13:45 Urine RBC (Auto) 5 /hpf (0-3) H 07/12/17 13:45 Urine Microscopic WBC 1 /hpf (0-5) 07/12/17 13:45 Hyaline Casts 3-5 /hpf (0-2) H 07/12/17 13:45 Fluid Type Spinal fluid 07/12/17 17:13 CSF Volume 2 mL (0-1) H 07/12/17 17:13 CSF Appearance Clear/colorless (CLEAR) 07/12/17 17:13 CSF WBC 0.0 /mm3 (0.0-5.0) 07/12/17 17:13 CSF RBC 11.0 /mm3 (0.0-0.0) H 07/12/17 17:13 CSF Total Cell Counted 8 (0-0) H 07/12/17 17:13 CSF Neutrophils 2 % (0-0) H 07/12/17 17:13 CSF Lymphocytes 6.0 % (0-0) H 07/12/17 17:13 CSF Monos/Macrophages 0 % (0-0) 07/12/17 17:13 CSF Comment Clear 07/12/17 17:13 CSF Glucose 75 mg/dL (40-70) H 07/12/17 15:35 CSF Total Protein 50.0 mg/dL (12-60) 07/12/17 15:55 Urine Opiates Screen Negative (NEGATIVE) 07/12/17 13:45 Urine Methadone Screen Negative (NEGATIVE) 07/12/17 13:45 Ur Barbiturates Screen Negative (NEGATIVE) 07/12/17 13:45 Ur Phencyclidine Scrn Negative (NEGATIVE) 07/12/17 13:45 Ur Amphetamines Screen Positive (NEGATIVE) H 07/12/17 13:45 U Benzodiazepines Scrn Negative (NEGATIVE) 07/12/17 13:45 U Oth Cocaine Metabols Negative (NEGATIVE) 07/12/17 13:45 U Cannabinoids Screen Negative (NEGATIVE) 07/12/17 13:45 Alcohol, Quantitative 258 mg/dl (0-10) H 07/12/17 10:55 - Hospital Course Hospital Course: 36M PMH Hx ETOH abuse, essential tremors, Adderall abuse, anxiety, depression was admitted to the ICU yesterday for hypovolemic shock, ETOH Ketoacidosis. Care was assumed from Dr. Garcia. Discussed with Professor Of Religious Studies. Patient [place] unresponsive in park near [facility]. 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 This made him feel progressively moderate to severely lightheaded for 2 days, which he assumed to be associated with withdrawal sx, and went to the store for vodka. On the way home he began to ingest vodka, and by the time he was walking through the park, he lost consciousness and woke up to paramedics around him. In the emergency room, patient was awake, alert, oriented. Pt was tachycardic and hypotensive. After several liters of NS bolus, patient continued to be hypotensive. Central line was declined, and dopamine was initiated which was maintained briefly. WBC 30k, AG 26, GLU 46, LA 3.1, +ketones urine, glucosuria, CXR neg, Head CT neg, LP + mild lymph, low pro, high glu. Admitted to ICU for HD instability. Fluids continued, patient weaned off pressors, seen by neurology , LP negative for meningitis, abx discontinued. Patient ambulating well, tolerating PO well, counseled extensively on nutrition and substance abuse and ETOH abstinence. He is now HD stable, no acute distress. LA and WBC normalized. Acidosis resolved as well. Patient is stable to be discharged home with home meds and close follow up with PCP. ALCOHOLIC KETOACIDOSIS HYPOVOLEMIC SHOCK ETOH ABUSE - patient given appx 4 bolus NS - was initiated on dopamine drip, was weaned off, as HD normalized - counseled on ETOH and substance abuse, cessation - nutrition counseling as well - continue folic acid and thiamine - now stable and resolved. - WBC, LA all normalized, metabolic acidosis resolved DEPRESSION ANXIETY - continue wellbutrin ESSENTIAL TREMORS - continue propranolol Discharge Exam - Head Exam Head Exam: ATRAUMATIC, NORMAL INSPECTION, NORMOCEPHALIC - Eye Exam Eye Exam: EOMI, Normal appearance, PERRL Pupil Exam: NORMAL ACCOMODATION - ENT Exam ENT Exam: Mucous Membranes Moist, Normal Oropharynx - Neck Exam Neck exam: Full Rom, Normal Inspection - Respiratory Exam Respiratory Exam: Clear to PA & Lateral, NORMAL BREATHING PATTERN - Cardiovascular Exam Cardiovascular Exam: RRR, +S1, +S2 - GI/Abdominal Exam GI & Abdominal Exam: Normal Bowel Sounds, Soft. absent: Organomegaly, Tenderness - Rectal Exam Rectal Exam: Deferred - Extremities Exam Extremities exam: normal capillary refill, pedal pulses present - Back Exam Back exam: absent: CVA tenderness (L), CVA tenderness (R) - Neurological Exam Neurological exam: Alert, Oriented x3 - Psychiatric Exam Psychiatric exam: Normal Affect, Normal Mood - Skin Skin Exam: Dry, Normal Color Discharge Plan - Discharge Medications Prescriptions: Bupropion HCl [Wellbutrin Sr] 150 mg PO Q12H #30 tab.er.12h Folic Acid 1 mg PO DAILY #30 tab Naltrexone [Revia] 50 mg PO DAILY #30 tab Propranolol [Inderal] 10 mg PO TID #30 tab Thiamine [Vitamin B1 Tab] 50 mg PO DAILY #30 tab traZODone [Desyrel] 50 mg PO HS #30 tab - Follow Up Plan Condition: GUARDED Disposition: HOME/ ROUTINE Instructions: Diabetic Ketoacidosis (DC), Diabetic Ketoacidosis (GEN), Alcohol Intoxication (DC) Additional Instructions: FOLLOW UP WITH PCP ONE WEEK RETURN TO ER IF CONDITION WORSENS COUNSELED ON NUTRITION AND ADEQUATE HYDRATION
--- NOTE | 2017-07-13 13:37 | CP.PCM.HP ---
History of Present Illness - History of Present Illness History of Present Illness: CC: passed out, I thought I was in withdrawal HPI: 36M PMH Hx ETOH abuse, essential tremors, Adderall abuse, anxiety, depression was admitted to the ICU yesterday for hypovolemic shock, ETOH Ketoacidosis. Care was assumed from Dr. Garcia. Discussed with [employer]board Lather. Patient was found unresponsive in park near [facility]. 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 This made him feel progressively moderate to severely lightheaded for 2 days, which he assumed to be associated with withdrawal sx, and went to the store for vodka. On the way home he began to ingest vodka, and by the time he was walking through the park, he lost consciousness and woke up to paramedics around him. In the emergency room, patient was awake, alert, oriented. Pt was tachycardic and hypotensive. After several liters of NS bolus, patient continued to be hypotensive. Central line was declined, and dopamine was initiated which was maintained briefly. WBC 30k, AG 26, GLU 46, LA 3.1, +ketones urine, glucosuria, CXR neg, Head CT neg, LP + mild lymph, low pro, high glu. Admitted to ICU for HD instability. Fluids continued, patient weaned off pressors, seen by neurology , LP negative for meningitis, abx discontinued. Patient ambulating well, tolerating PO well, counseled extensively on nutrition and substance abuse and ETOH abstinence. He is now HD stable, no acute distress. LA and WBC normalized. ROS: per HPI all other systems reviewed and negative by me PMSH: anxiety, depression, ETOH abuse, essential tremors FH: denies SH: prior ETOH abuse, denies tobacco, IVDU. 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 VITALS Temp Pulse Resp BP Pulse Ox 98.4 F 82 19 117/66 98 07/13/17 08:00 07/13/17 08:00 07/13/17 08:00 07/13/17 08:00 07/13/17 09:51 EXAM: GEN: WDWN, ALERT, COOPERATIVE HEENT: NCAT, PERRL, EOMI HEART: +S1+S2, RRR NO MRG LUNG: CTAB, NO WRR ABD: SOFT BSX4 NT ND NO HSM NO MASS EXT: WARM, WELL PERFUSED NEURO: [id number], STRENGTH AND SENSATION EQUAL AND BILATERAL SKIN: WARM DRY PSYCH: NORMAL MOOD NORMAL AFFECT LABS 07/13/17 07/13/17 07/13/17 04:30 04:30 04:30 WBC 10.6 RBC 4.65 Hgb 13.6 Hct 41.0 MCV 88.3 MCH 29.3 MCHC 33.2 RDW 13.3 Plt Count 249 MPV 8.0 Neut % (Auto) 73.6 Lymph % (Auto) 13.9 L [place] % (Auto) 10.4 H Eos % (Auto) 1.8 Baso % (Auto) 0.3 Neut # 7.8 H Lymph # 1.5 [place] # 1.1 H Eos # 0.2 Baso # 0.0 pO2 VBG pH VBG pCO2 VBG HCO3 VBG Total CO2 VBG O2 Sat (Calc) VBG Base Excess VBG Potassium Glucose Lactate FiO2 Sodium 140 Potassium 3.7 Chloride 107 Carbon Dioxide 23 Anion Gap 14 BUN 8 L Creatinine 0.7 L Est GFR ( Amer) > 60 Est GFR (Non-Af Amer) > 60 POC Glucose (mg/dL) Random Glucose 89 Lactic Acid 0.8 Calcium 8.5 Total Bilirubin AST ALT Alkaline Phosphatase Total Creatine Kinase Total Protein Albumin Globulin Albumin/Globulin Ratio Venous Blood Potassium Urine Color Urine Clarity Urine pH Ur Specific [place] Urine Protein Urine Glucose (UA) Urine Ketones Urine Blood Urine Nitrate Urine Bilirubin Urine Urobilinogen Ur Leukocyte Esterase Urine RBC (Auto) Urine Microscopic WBC Hyaline Casts Fluid Type CSF Volume CSF Appearance CSF WBC CSF RBC CSF Total Cell Counted CSF Neutrophils CSF Lymphocytes CSF Monos/Macrophages CSF Comment CSF Glucose CSF Total Protein Urine Opiates Screen Urine Methadone Screen Ur Barbiturates Screen Ur Phencyclidine Scrn Ur Amphetamines Screen U Benzodiazepines Scrn U Oth Cocaine Metabols U Cannabinoids Screen Alcohol, Quantitative 07/12/17 07/12/17 07/12/17 23:43 22:39 20:02 WBC RBC Hgb Hct MCV MCH MCHC RDW Plt Count MPV Neut % (Auto) Lymph % (Auto) [place] % (Auto) Eos % (Auto) Baso % (Auto) Neut # Lymph # [place] # Eos # Baso # pO2 VBG pH VBG pCO2 VBG HCO3 VBG Total CO2 VBG O2 Sat (Calc) VBG Base Excess VBG Potassium Glucose Lactate FiO2 Sodium 144 Potassium 3.4 L Chloride 112 H Carbon Dioxide 19 L Anion Gap 16 BUN 9 Creatinine 0.7 L Est GFR ( Amer) > 60 Est GFR (Non-Af Amer) > 60 POC Glucose (mg/dL) 75 64 L Random Glucose 121 H Lactic Acid Calcium 7.8 L Total Bilirubin 0.1 L AST 26 ALT 27 Alkaline Phosphatase 75 Total Creatine Kinase Total Protein 5.9 L Albumin 3.3 L D Globulin 2.5 Albumin/Globulin Ratio 1.3 Venous Blood Potassium Urine Color Urine Clarity Urine pH Ur Specific [place] Urine Protein Urine Glucose (UA) Urine Ketones Urine Blood Urine Nitrate Urine Bilirubin Urine Urobilinogen Ur Leukocyte Esterase Urine RBC (Auto) Urine Microscopic WBC Hyaline Casts Fluid Type CSF Volume CSF Appearance CSF WBC CSF RBC CSF Total Cell Counted CSF Neutrophils CSF Lymphocytes CSF Monos/Macrophages CSF Comment CSF Glucose CSF Total Protein Urine Opiates Screen Urine Methadone Screen Ur Barbiturates Screen Ur Phencyclidine Scrn Ur Amphetamines Screen U Benzodiazepines Scrn U Oth Cocaine Metabols U Cannabinoids Screen Alcohol, Quantitative 07/12/17 07/12/17 07/12/17 20:02 17:41 17:34 WBC 8.0 D RBC 4.54 Hgb 13.3 D Hct 40.2 MCV 88.6 MCH 29.4 MCHC 33.2 RDW 13.1 Plt Count 259 D MPV 7.9 Neut % (Auto) 77.4 H Lymph % (Auto) 16.7 L [place] % (Auto) 5.1 Eos % (Auto) 0.4 Baso % (Auto) 0.4 Neut # 6.2 Lymph # 1.3 [place] # 0.4 Eos # 0.0 Baso # 0.0 pO2 64 H VBG pH 7.32 VBG pCO2 43 VBG HCO3 21.7 VBG Total CO2 23.5 VBG O2 Sat (Calc) 96.0 H VBG Base Excess -3.9 L VBG Potassium 3.3 L Glucose 140 H Lactate 2.4 H FiO2 21.0 Sodium 140.0 Potassium Chloride 110.0 H Carbon Dioxide Anion Gap BUN Creatinine Est GFR ( Amer) Est GFR (Non-Af Amer) POC Glucose (mg/dL) Random Glucose Lactic Acid Calcium Total Bilirubin AST ALT Alkaline Phosphatase Total Creatine Kinase 82 Total Protein Albumin Globulin Albumin/Globulin Ratio Venous Blood Potassium 3.3 L Urine Color Urine Clarity Urine pH Ur Specific [place] Urine Protein Urine Glucose (UA) Urine Ketones Urine Blood Urine Nitrate Urine Bilirubin Urine Urobilinogen Ur Leukocyte Esterase Urine RBC (Auto) Urine Microscopic WBC Hyaline Casts Fluid Type CSF Volume CSF Appearance CSF WBC CSF RBC CSF Total Cell Counted CSF Neutrophils CSF Lymphocytes CSF Monos/Macrophages CSF Comment CSF Glucose CSF Total Protein Urine Opiates Screen Urine Methadone Screen Ur Barbiturates Screen Ur Phencyclidine Scrn Ur Amphetamines Screen U Benzodiazepines Scrn U Oth Cocaine Metabols U Cannabinoids Screen Alcohol, Quantitative 07/12/17 07/12/17 07/12/17 17:27 17:13 15:55 WBC RBC Hgb Hct MCV MCH MCHC RDW Plt Count MPV Neut % (Auto) Lymph % (Auto) [place] % (Auto) Eos % (Auto) Baso % (Auto) Neut # Lymph # [place] # Eos # Baso # pO2 VBG pH VBG pCO2 VBG HCO3 VBG Total CO2 VBG O2 Sat (Calc) VBG Base Excess VBG Potassium Glucose Lactate FiO2 Sodium Potassium Chloride Carbon Dioxide Anion Gap BUN Creatinine Est GFR ( Amer) Est GFR (Non-Af Amer) POC Glucose (mg/dL) 157 H Random Glucose Lactic Acid Calcium Total Bilirubin AST ALT Alkaline Phosphatase Total Creatine Kinase Total Protein Albumin Globulin Albumin/Globulin Ratio Venous Blood Potassium Urine Color Urine Clarity Urine pH Ur Specific [place] Urine Protein Urine Glucose (UA) Urine Ketones Urine Blood Urine Nitrate Urine Bilirubin Urine Urobilinogen Ur Leukocyte Esterase Urine RBC (Auto) Urine Microscopic WBC Hyaline Casts Fluid Type Spinal fluid CSF Volume 2 H CSF Appearance Clear/colorless CSF WBC 0.0 CSF RBC 11.0 H CSF Total Cell Counted 8 H CSF Neutrophils 2 H CSF Lymphocytes 6.0 H CSF Monos/Macrophages 0 CSF Comment Clear CSF Glucose CSF Total Protein 50.0 Urine Opiates Screen Urine Methadone Screen Ur Barbiturates Screen Ur Phencyclidine Scrn Ur Amphetamines Screen U Benzodiazepines Scrn U Oth Cocaine Metabols U Cannabinoids Screen Alcohol, Quantitative 07/12/17 07/12/17 07/12/17 15:35 14:17 13:45 WBC RBC Hgb Hct MCV MCH MCHC RDW Plt Count MPV Neut % (Auto) Lymph % (Auto) [place] % (Auto) Eos % (Auto) Baso % (Auto) Neut # Lymph # [place] # Eos # Baso # pO2 VBG pH VBG pCO2 VBG HCO3 VBG Total CO2 VBG O2 Sat (Calc) VBG Base Excess VBG Potassium Glucose Lactate FiO2 Sodium Potassium Chloride Carbon Dioxide Anion Gap BUN Creatinine Est GFR ( Amer) Est GFR (Non-Af Amer) POC Glucose (mg/dL) 242 H Random Glucose Lactic Acid Calcium Total Bilirubin AST ALT Alkaline Phosphatase Total Creatine Kinase Total Protein Albumin Globulin Albumin/Globulin Ratio Venous Blood Potassium Urine Color Yellow Urine Clarity Slighty-cloudy Urine pH 5.0 Ur Specific [place] 1.025 Urine Protein 30 Urine Glucose (UA) >=500 Urine Ketones 20 Urine Blood Negative Urine Nitrate Negative Urine Bilirubin Negative Urine Urobilinogen 0.2-1.0 Ur Leukocyte Esterase Neg Urine RBC (Auto) 5 H Urine Microscopic WBC 1 Hyaline Casts 3-5 H Fluid Type CSF Volume CSF Appearance CSF WBC CSF RBC CSF Total Cell Counted CSF Neutrophils CSF Lymphocytes CSF Monos/Macrophages CSF Comment CSF Glucose 75 H CSF Total Protein Urine Opiates Screen Urine Methadone Screen Ur Barbiturates Screen Ur Phencyclidine Scrn Ur Amphetamines Screen U Benzodiazepines Scrn U Oth Cocaine Metabols U Cannabinoids Screen Alcohol, Quantitative 07/12/17 07/12/17 07/12/17 13:45 13:34 12:53 WBC RBC Hgb Hct MCV MCH MCHC RDW Plt Count MPV Neut % (Auto) Lymph % (Auto) [place] % (Auto) Eos % (Auto) Baso % (Auto) Neut # Lymph # [place] # Eos # Baso # pO2 29 L VBG pH 7.21 L VBG pCO2 64 H VBG HCO3 20.3 VBG Total CO2 27.6 VBG O2 Sat (Calc) 50.1 VBG Base Excess -3.9 L VBG Potassium 3.9 Glucose 254 H Lactate 3.1 H FiO2 21.0 Sodium 140.0 Potassium Chloride 104.0 Carbon Dioxide Anion Gap BUN Creatinine Est GFR ( Amer) Est GFR (Non-Af Amer) POC Glucose (mg/dL) 363 H Random Glucose Lactic Acid Calcium Total Bilirubin AST ALT Alkaline Phosphatase Total Creatine Kinase Total Protein Albumin Globulin Albumin/Globulin Ratio Venous Blood Potassium 3.9 Urine Color Urine Clarity Urine pH Ur Specific [place] Urine Protein Urine Glucose (UA) Urine Ketones Urine Blood Urine Nitrate Urine Bilirubin Urine Urobilinogen Ur Leukocyte Esterase Urine RBC (Auto) Urine Microscopic WBC Hyaline Casts Fluid Type CSF Volume CSF Appearance CSF WBC CSF RBC CSF Total Cell Counted CSF Neutrophils CSF Lymphocytes CSF Monos/Macrophages CSF Comment CSF Glucose CSF Total Protein Urine Opiates Screen Negative Urine Methadone Screen Negative Ur Barbiturates Screen Negative Ur Phencyclidine Scrn Negative Ur Amphetamines Screen Positive H U Benzodiazepines Scrn Negative U Oth Cocaine Metabols Negative U Cannabinoids Screen Negative Alcohol, Quantitative 07/12/17 07/12/17 07/12/17 12:40 10:55 10:55 WBC 30.0 H RBC 5.56 Hgb 16.3 Hct 48.8 MCV 87.7 MCH 29.3 MCHC 33.4 RDW 13.2 Plt Count 391 MPV 7.8 Neut % (Auto) 84.5 H Lymph % (Auto) 11.7 L [place] % (Auto) 2.9 Eos % (Auto) 0.4 Baso % (Auto) 0.5 Neut # 25.4 H Lymph # 3.5 [place] # 0.9 H Eos # 0.1 Baso # 0.1 pO2 VBG pH VBG pCO2 VBG HCO3 VBG Total CO2 VBG O2 Sat (Calc) VBG Base Excess VBG Potassium Glucose Lactate FiO2 Sodium 150 H Potassium 3.8 Chloride 107 Carbon Dioxide 21 L Anion Gap 26 H BUN 13 Creatinine 0.9 Est GFR ( Amer) > 60 Est GFR (Non-Af Amer) > 60 POC Glucose (mg/dL) 34 L* Random Glucose 43 L Lactic Acid Calcium 9.5 Total Bilirubin 0.6 AST 41 ALT 32 Alkaline Phosphatase 121 Total Creatine Kinase Total Protein 8.4 H Albumin 4.8 Globulin 3.6 Albumin/Globulin Ratio 1.3 Venous Blood Potassium Urine Color Urine Clarity Urine pH Ur Specific [place] Urine Protein Urine Glucose (UA) Urine Ketones Urine Blood Urine Nitrate Urine Bilirubin Urine Urobilinogen Ur Leukocyte Esterase Urine RBC (Auto) Urine Microscopic WBC Hyaline Casts Fluid Type CSF Volume CSF Appearance CSF WBC CSF RBC CSF Total Cell Counted CSF Neutrophils CSF Lymphocytes CSF Monos/Macrophages CSF Comment CSF Glucose CSF Total Protein Urine Opiates Screen Urine Methadone Screen Ur Barbiturates Screen Ur Phencyclidine Scrn Ur Amphetamines Screen U Benzodiazepines Scrn U Oth Cocaine Metabols U Cannabinoids Screen Alcohol, Quantitative [address] NEG CXR NEG MEDS Allergies No Known Allergies Allergy (Verified 07/12/17 12:29) Height & Weight Height 5 ft 5 in Weight 166 lb Start Date/Time Active Medications 07/12/17 18:45 Dextrose 5% In Water 250 ml Norepinephrine [Levophed] 4 mg IV 5 mcg/min 07/13/17 09:00 Enoxaparin [Lovenox] 40 mg SC DAILY Anticoagulation Clinical Indication: DVT/PE Prevention Pantoprazole [Protonix Inj] 40 mg IVP DAILY 07/13/17 10:15 Dextrose 5%/0.9% NS [Dextrose 5%/0.9% NS 1000 ml] 1,000 ml IV 125 mls/hr Folic Acid 1 mg PO DAILY Pantoprazole [Protonix EC Tab] 40 mg PO DAILY Thiamine [Vitamin B1 Tab] 50 mg PO DAILY 07/13/17 14:00 Influenza Vaccine 18yr & older [Afluria (PF)(18yr & older)] 0.5 ml IM .ONCE ONE ASSESSMENT AND PLAN: 36M PMH Hx ETOH abuse, essential tremors, Adderall abuse, anxiety, depression was admitted to the ICU yesterday for hypovolemic shock, ETOH Ketoacidosis. Care was assumed from Dr. Garcia. Discussed with [employer]. Patient was [place] unresponsive in park near [facility]. 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 This made him feel progressively moderate to severely lightheaded for 2 days, which he assumed to be associated with withdrawal sx, and went to the store for vodka. On the way home he began to ingest vodka, and by the time he was walking through the park, he lost consciousness and woke up to paramedics around him. In the emergency room, patient was awake, alert, oriented. Pt was tachycardic and hypotensive. After several liters of NS bolus, patient continued to be hypotensive. Central line was declined, and dopamine was initiated which was maintained briefly. WBC 30k, AG 26, GLU 46, LA 3.1, +ketones urine, glucosuria, CXR neg, Head CT neg, LP + mild lymph, low pro, high glu. Admitted to ICU for HD instability. Fluids continued, patient weaned off pressors, seen by neurology , LP negative for meningitis, abx discontinued. Patient ambulating well, tolerating PO well, counseled extensively on nutrition and substance abuse and ETOH abstinence. He is now HD stable, no acute distress. LA and WBC normalized. Acidosis resolved as well. Patient is stable to be discharged home with home meds and close follow up with PCP. ALCOHOLIC KETOACIDOSIS HYPOVOLEMIC SHOCK ETOH ABUSE - patient given appx 4 bolus NS - was initiated on dopamine drip, was weaned off, as HD normalized - counseled on ETOH and substance abuse, cessation - nutrition counseling as well - continue folic acid and thiamine - now stable and resolved. - WBC, LA all normalized, metabolic acidosis resolved DEPRESSION ANXIETY - continue wellbutrin ESSENTIAL TREMORS - continue propranolol Present on Admission - Present on Admission Any Indicators Present on Admission: No Past Patient History - Past Medical History & Family History Past Medical History?: Yes - Past Social History Alcohol: > 2 Drinks/Day - CARDIAC Hx Hypertension: Yes - PULMONARY Hx Respiratory Disorders: No - NEUROLOGICAL Hx Neurological Disorder: No - HEENT Hx HEENT Problems: No - RENAL Hx Chronic Kidney Disease: No - ENDOCRINE/METABOLIC Hx Endocrine Disorders: No - HEMATOLOGICAL/ONCOLOGICAL Hx Blood Disorders: No Hx AIDS: No Hx Human Immunodeficiency Virus (HIV): No - INTEGUMENTARY Hx Dermatological Problems: No - MUSCULOSKELETAL/RHEUMATOLOGICAL Hx Musculoskeletal Disorders: No Hx Falls: Yes - GASTROINTESTINAL Hx Gastrointestinal Disorders: No - GENITOURINARY/GYNECOLOGICAL Hx Genitourinary Disorders: No - PSYCHIATRIC Hx Psychophysiologic Disorder: Yes Hx Anxiety: Yes Hx Depression: Yes Hx Substance Use: No Other/Comment: ADHD - SURGICAL HISTORY Hx Surgeries: No - ANESTHESIA Hx Anesthesia: No Meds Home Medications: Home Medication List Medication Instructions Recorded Confirmed Type Bupropion HCl [Wellbutrin Sr] 150 mg PO Q12H #30 tab.er.12h 07/13/17 Rx Folic Acid 1 mg PO DAILY #30 tab 07/13/17 Rx Naltrexone [Revia] 50 mg PO DAILY #30 tab 07/13/17 Rx Propranolol [Inderal] 10 mg PO TID #30 tab 07/13/17 Rx Thiamine [Vitamin B1 Tab] 50 mg PO DAILY #30 tab 07/13/17 Rx traZODone [Desyrel] 50 mg PO HS #30 tab 07/13/17 Rx Allergies/Adverse Reactions: Allergies Allergy/AdvReac Type Severity Reaction Status Date / Time No Known Allergies Allergy Verified 07/12/17 12:29 Results - Vital Signs Recent Vital Signs: Last Vital Signs Temp 98.4 F 07/13/17 08:00 Pulse 82 07/13/17 08:00 Resp 19 07/13/17 08:00 BP 117/66 07/13/17 08:00 Pulse Ox 98 07/13/17 09:51 - Labs Result Diagrams: 07/13/17 04:30 07/13/17 04:30 Labs: Laboratory Results - last 24 hr 07/12/17 07/12/17 07/12/17 12:40 12:53 13:34 WBC RBC Hgb Hct MCV MCH MCHC RDW Plt Count MPV Neut % (Auto) Lymph % (Auto) [place] % (Auto) Eos % (Auto) Baso % (Auto) Neut # Lymph # [place] # Eos # Baso # pO2 29 L VBG pH 7.21 L VBG pCO2 64 H VBG HCO3 20.3 VBG Total CO2 27.6 VBG O2 Sat (Calc) 50.1 VBG Base Excess -3.9 L VBG Potassium 3.9 Sodium 140.0 Chloride 104.0 Glucose 254 H Lactate 3.1 H FiO2 21.0 Potassium Carbon Dioxide Anion Gap BUN Creatinine Est GFR ( Amer) Est GFR (Non-Af Amer) POC Glucose (mg/dL) 34 L* 363 H Random Glucose Lactic Acid Calcium Total Bilirubin AST ALT Alkaline Phosphatase Total Creatine Kinase Total Protein Albumin Globulin Albumin/Globulin Ratio Venous Blood Potassium 3.9 Urine Color Urine Clarity Urine pH Ur Specific [place] Urine Protein Urine Glucose (UA) Urine Ketones Urine Blood Urine Nitrate Urine Bilirubin Urine Urobilinogen Ur Leukocyte Esterase Urine RBC (Auto) Urine Microscopic WBC Hyaline Casts Fluid Type CSF Volume CSF Appearance CSF WBC CSF RBC CSF Total Cell Counted CSF Neutrophils CSF Lymphocytes CSF Monos/Macrophages CSF Comment CSF Glucose CSF Total Protein Urine Opiates Screen Urine Methadone Screen Ur Barbiturates Screen Ur Phencyclidine Scrn Ur Amphetamines Screen U Benzodiazepines Scrn U Oth Cocaine Metabols U Cannabinoids Screen 07/12/17 07/12/17 07/12/17 13:45 13:45 14:17 WBC RBC Hgb Hct MCV MCH MCHC RDW Plt Count MPV Neut % (Auto) Lymph % (Auto) [place] % (Auto) Eos % (Auto) Baso % (Auto) Neut # Lymph # [place] # Eos # Baso # pO2 VBG pH VBG pCO2 VBG HCO3 VBG Total CO2 VBG O2 Sat (Calc) VBG Base Excess VBG Potassium Sodium Chloride Glucose Lactate FiO2 Potassium Carbon Dioxide Anion Gap BUN Creatinine Est GFR ( Amer) Est GFR (Non-Af Amer) POC Glucose (mg/dL) 242 H Random Glucose Lactic Acid Calcium Total Bilirubin AST ALT Alkaline Phosphatase Total Creatine Kinase Total Protein Albumin Globulin Albumin/Globulin Ratio Venous Blood Potassium Urine Color Yellow Urine Clarity Slighty-cloudy Urine pH 5.0 Ur Specific [place] 1.025 Urine Protein 30 Urine Glucose (UA) >=500 Urine Ketones 20 Urine Blood Negative Urine Nitrate Negative Urine Bilirubin Negative Urine Urobilinogen 0.2-1.0 Ur Leukocyte Esterase Neg Urine RBC (Auto) 5 H Urine Microscopic WBC 1 Hyaline Casts 3-5 H Fluid Type CSF Volume CSF Appearance CSF WBC CSF RBC CSF Total Cell Counted CSF Neutrophils CSF Lymphocytes CSF Monos/Macrophages CSF Comment CSF Glucose CSF Total Protein Urine Opiates Screen Negative Urine Methadone Screen Negative Ur Barbiturates Screen Negative Ur Phencyclidine Scrn Negative Ur Amphetamines Screen Positive H U Benzodiazepines Scrn Negative U Oth Cocaine Metabols Negative U Cannabinoids Screen Negative 07/12/17 07/12/17 07/12/17 15:35 15:55 17:13 WBC RBC Hgb Hct MCV MCH MCHC RDW Plt Count MPV Neut % (Auto) Lymph % (Auto) [place] % (Auto) Eos % (Auto) Baso % (Auto) Neut # Lymph # [place] # Eos # Baso # pO2 VBG pH VBG pCO2 VBG HCO3 VBG Total CO2 VBG O2 Sat (Calc) VBG Base Excess VBG Potassium Sodium Chloride Glucose Lactate FiO2 Potassium Carbon Dioxide Anion Gap BUN Creatinine Est GFR ( Amer) Est GFR (Non-Af Amer) POC Glucose (mg/dL) Random Glucose Lactic Acid Calcium Total Bilirubin AST ALT Alkaline Phosphatase Total Creatine Kinase Total Protein Albumin Globulin Albumin/Globulin Ratio Venous Blood Potassium Urine Color Urine Clarity Urine pH Ur Specific [place] Urine Protein Urine Glucose (UA) Urine Ketones Urine Blood Urine Nitrate Urine Bilirubin Urine Urobilinogen Ur Leukocyte Esterase Urine RBC (Auto) Urine Microscopic WBC Hyaline Casts Fluid Type Spinal fluid CSF Volume 2 H CSF Appearance Clear/colorless CSF WBC 0.0 CSF RBC 11.0 H CSF Total Cell Counted 8 H CSF Neutrophils 2 H CSF Lymphocytes 6.0 H CSF Monos/Macrophages 0 CSF Comment Clear CSF Glucose 75 H CSF Total Protein 50.0 Urine Opiates Screen Urine Methadone Screen Ur Barbiturates Screen Ur Phencyclidine Scrn Ur Amphetamines Screen U Benzodiazepines Scrn U Oth Cocaine Metabols U Cannabinoids Screen 07/12/17 07/12/17 07/12/17 17:27 17:34 17:41 WBC RBC Hgb Hct MCV MCH MCHC RDW Plt Count MPV Neut % (Auto) Lymph % (Auto) [place] % (Auto) Eos % (Auto) Baso % (Auto) Neut # Lymph # [place] # Eos # Baso # pO2 64 H VBG pH 7.32 VBG pCO2 43 VBG HCO3 21.7 VBG Total CO2 23.5 VBG O2 Sat (Calc) 96.0 H VBG Base Excess -3.9 L VBG Potassium 3.3 L Sodium 140.0 Chloride 110.0 H Glucose 140 H Lactate 2.4 H FiO2 21.0 Potassium Carbon Dioxide Anion Gap BUN Creatinine Est GFR ( Amer) Est GFR (Non-Af Amer) POC Glucose (mg/dL) 157 H Random Glucose Lactic Acid Calcium Total Bilirubin AST ALT Alkaline Phosphatase Total Creatine Kinase 82 Total Protein Albumin Globulin Albumin/Globulin Ratio Venous Blood Potassium 3.3 L Urine Color Urine Clarity Urine pH Ur Specific [place] Urine Protein Urine Glucose (UA) Urine Ketones Urine Blood Urine Nitrate Urine Bilirubin Urine Urobilinogen Ur Leukocyte Esterase Urine RBC (Auto) Urine Microscopic WBC Hyaline Casts Fluid Type CSF Volume CSF Appearance CSF WBC CSF RBC CSF Total Cell Counted CSF Neutrophils CSF Lymphocytes CSF Monos/Macrophages CSF Comment CSF Glucose CSF Total Protein Urine Opiates Screen Urine Methadone Screen Ur Barbiturates Screen Ur Phencyclidine Scrn Ur Amphetamines Screen U Benzodiazepines Scrn U Oth Cocaine Metabols U Cannabinoids Screen 07/12/17 07/12/17 07/12/17 20:02 20:02 22:39 WBC 8.0 D RBC 4.54 Hgb 13.3 D Hct 40.2 MCV 88.6 MCH 29.4 MCHC 33.2 RDW 13.1 Plt Count 259 D MPV 7.9 Neut % (Auto) 77.4 H Lymph % (Auto) 16.7 L [place] % (Auto) 5.1 Eos % (Auto) 0.4 Baso % (Auto) 0.4 Neut # 6.2 Lymph # 1.3 [place] # 0.4 Eos # 0.0 Baso # 0.0 pO2 VBG pH VBG pCO2 VBG HCO3 VBG Total CO2 VBG O2 Sat (Calc) VBG Base Excess VBG Potassium Sodium 144 Chloride 112 H Glucose Lactate FiO2 Potassium 3.4 L Carbon Dioxide 19 L Anion Gap 16 BUN 9 Creatinine 0.7 L Est GFR ( Amer) > 60 Est GFR (Non-Af Amer) > 60 POC Glucose (mg/dL) 64 L Random Glucose 121 H Lactic Acid Calcium 7.8 L Total Bilirubin 0.1 L AST 26 ALT 27 Alkaline Phosphatase 75 Total Creatine Kinase Total Protein 5.9 L Albumin 3.3 L D Globulin 2.5 Albumin/Globulin Ratio 1.3 Venous Blood Potassium Urine Color Urine Clarity Urine pH Ur Specific [place] Urine Protein Urine Glucose (UA) Urine Ketones Urine Blood Urine Nitrate Urine Bilirubin Urine Urobilinogen Ur Leukocyte Esterase Urine RBC (Auto) Urine Microscopic WBC Hyaline Casts Fluid Type CSF Volume CSF Appearance CSF WBC CSF RBC CSF Total Cell Counted CSF Neutrophils CSF Lymphocytes CSF Monos/Macrophages CSF Comment CSF Glucose CSF Total Protein Urine Opiates Screen Urine Methadone Screen Ur Barbiturates Screen Ur Phencyclidine Scrn Ur Amphetamines Screen U Benzodiazepines Scrn U Oth Cocaine Metabols U Cannabinoids Screen 07/12/17 07/13/17 07/13/17 23:43 04:30 04:30 WBC 10.6 RBC 4.65 Hgb 13.6 Hct 41.0 MCV 88.3 MCH 29.3 MCHC 33.2 RDW 13.3 Plt Count 249 MPV 8.0 Neut % (Auto) 73.6 Lymph % (Auto) 13.9 L [place] % (Auto) 10.4 H Eos % (Auto) 1.8 Baso % (Auto) 0.3 Neut # 7.8 H Lymph # 1.5 [place] # 1.1 H Eos # 0.2 Baso # 0.0 pO2 VBG pH VBG pCO2 VBG HCO3 VBG Total CO2 VBG O2 Sat (Calc) VBG Base Excess VBG Potassium Sodium 140 Chloride 107 Glucose Lactate FiO2 Potassium 3.7 Carbon Dioxide 23 Anion Gap 14 BUN 8 L Creatinine 0.7 L Est GFR ( Amer) > 60 Est GFR (Non-Af Amer) > 60 POC Glucose (mg/dL) 75 Random Glucose 89 Lactic Acid Calcium 8.5 Total Bilirubin AST ALT Alkaline Phosphatase Total Creatine Kinase Total Protein Albumin Globulin Albumin/Globulin Ratio Venous Blood Potassium Urine Color Urine Clarity Urine pH Ur Specific [place] Urine Protein Urine Glucose (UA) Urine Ketones Urine Blood Urine Nitrate Urine Bilirubin Urine Urobilinogen Ur Leukocyte Esterase Urine RBC (Auto) Urine Microscopic WBC Hyaline Casts Fluid Type CSF Volume CSF Appearance CSF WBC CSF RBC CSF Total Cell Counted CSF Neutrophils CSF Lymphocytes CSF Monos/Macrophages CSF Comment CSF Glucose CSF Total Protein Urine Opiates Screen Urine Methadone Screen Ur Barbiturates Screen Ur Phencyclidine Scrn Ur Amphetamines Screen U Benzodiazepines Scrn U Oth Cocaine Metabols U Cannabinoids Screen 07/13/17 04:30 WBC RBC Hgb Hct MCV MCH MCHC RDW Plt Count MPV Neut % (Auto) Lymph % (Auto) [place] % (Auto) Eos % (Auto) Baso % (Auto) Neut # Lymph # [place] # Eos # Baso # pO2 VBG pH VBG pCO2 VBG HCO3 VBG Total CO2 VBG O2 Sat (Calc) VBG Base Excess VBG Potassium Sodium Chloride Glucose Lactate FiO2 Potassium Carbon Dioxide Anion Gap BUN Creatinine Est GFR ( Amer) Est GFR (Non-Af Amer) POC Glucose (mg/dL) Random Glucose Lactic Acid 0.8 Calcium Total Bilirubin AST ALT Alkaline Phosphatase Total Creatine Kinase Total Protein Albumin Globulin Albumin/Globulin Ratio Venous Blood Potassium Urine Color Urine Clarity Urine pH Ur Specific [place] Urine Protein Urine Glucose (UA) Urine Ketones Urine Blood Urine Nitrate Urine Bilirubin Urine Urobilinogen Ur Leukocyte Esterase Urine RBC (Auto) Urine Microscopic WBC Hyaline Casts Fluid Type CSF Volume CSF Appearance CSF WBC CSF RBC CSF Total Cell Counted CSF Neutrophils CSF Lymphocytes CSF Monos/Macrophages CSF Comment CSF Glucose CSF Total Protein Urine Opiates Screen Urine Methadone Screen Ur Barbiturates Screen Ur Phencyclidine Scrn Ur Amphetamines Screen U Benzodiazepines Scrn U Oth Cocaine Metabols U Cannabinoids Screen Assessment & Plan (1) Alcoholic ketoacidosis Status: Acute Priority: High (2) ETOH abuse Status: Acute Priority: High (3) Hypovolemic shock Status: Acute Priority: High
[2017-07-13] MEDS ORDERED: Influenza Vaccine 18yr & older 0.5 ML/45 MCG SYR IM ONE (14:00)
== END 2017-07-13 14:20 | disposition home or self-care (01) | DRG 871 ==
LOC: H.ER 12:13 → H.EROBSV 12:52 → OBSVTOIN 17:26 → H.ERHOLD 17:29 → H.ICU/CCU 20:40
PROVIDERS: ADMIT Internal Medicine; ATTEND Internal Medicine
DX: A41.9 Sepsis, unspecified organism (principal); R65.21 Severe sepsis with septic shock; R57.1 Hypovolemic shock; E87.2 Acidosis; I10 Essential (primary) hypertension; G40.909 Epilepsy, unspecified, not intractable, without status epilepticus; G25.0 Essential tremor; F90.9 Attention-deficit hyperactivity disorder, unspecified type; F41.9 Anxiety disorder, unspecified; F10.129 Alcohol abuse with intoxication, unspecified; Z79.899 Other long term (current) drug therapy

== ENCOUNTER 2017-07-16 13:54 | Emergency (ER) | payer MEDICAID, OTHER ==
[2017-07-16 13:55] VITALS: BMI 27.6
--- NOTE | 2017-07-16 14:12 | ED PDOC ---
HPI: Psych/Substance Abuse Time Seen by Provider: 07/16/17 14:10 Chief Complaint (Provider): crisis eval History Per: Patient Additional Complaint(s): 36-year-old male presents to emergency department for eval of fatigue and generalized malaise 5 days. Patient was discharged on July 13 after being admitted with alcoholic ketoacidosic. He states today he was discharged she did feel better but over the past few days he has felt worse. The patient states he has no energy and has no appetite. He states he vomited times one today. Patient admits to drinking alcohol today but states over the past few days since his hospital discharge he has not been drinking. Patient's girlfriend at bedside states the patient is not acting like himself. Headache upon arrival, he denies any vision changes, dizziness, nausea or vomiting. Past Medical History Reviewed: Historical Data - Medical History PMH: Anxiety, Depression, HTN - Surgical History Surgical History: No Surg Hx - Family History Family History: States: No Known Family Hx - Living Arrangements Living Arrangements: With Family - Social History Current smoker - smoking cessation education provided: No Alcohol: > 2 Drinks/Day Drugs: Denies - Home Medications Home Medications: Ambulatory Orders Medication Instructions Recorded Acamprosate Calcium 2 cap PO TID 07/12/17 Dextroamphetamine/Amphetamine 20 mg PO DAILY 07/12/17 [Adderall Xr 20 mg Capsule] Valerian Root 1 cap PO DAILY 07/12/17 Vitamin B Complex 1 tab PO DAILY 07/12/17 Bupropion HCl [Wellbutrin Sr] 150 mg PO Q12H #30 tab.er.12h 07/13/17 Folic Acid 1 mg PO DAILY #30 tab 07/13/17 Naltrexone [Revia] 50 mg PO DAILY #30 tab 07/13/17 Propranolol [Inderal] 10 mg PO TID #30 tab 07/13/17 Thiamine [Vitamin B1 Tab] 50 mg PO DAILY #30 tab 07/13/17 traZODone [Desyrel] 50 mg PO HS #30 tab 07/13/17 - Allergies Allergies/Adverse Reactions: Allergies Allergy/AdvReac Type Severity Reaction Status Date / Time No Known Allergies Allergy Verified 07/12/17 12:29 Review of Systems ROS Statement: Except As Marked, All Systems Reviewed And Found Negative Constitutional: Positive for: Weakness, Malaise, Other (fatigue). Negative for : Fever, Chills Cardiovascular: Negative for: Chest Pain Respiratory: Negative for: Cough Gastrointestinal: Positive for: Vomiting (x 1 earier today), Other (decreased appetite). Negative for: Abdominal Pain, Diarrhea Genitourinary Male: Negative for: Dysuria Neurological: Positive for: Headache. Negative for: Weakness, Numbness, Incoordination, Change in Speech, Confusion, Seizures, Altered Mental Status, Dizziness Psych: Negative for: Psychosis (Denies auditory or visual hallucinations), Suicidal ideation Physical Exam - Reviewed Nursing Documentation Reviewed: Yes Vital Signs Reviewed: Yes - Physical Exam Appears: Positive for: Well, Non-toxic, No Acute Distress Skin: Negative for: Rash Eye Exam: Positive for: Normal appearance, EOMI, PERRL Cardiovascular/Chest: Positive for: Regular Rate, Rhythm Respiratory: Positive for: Normal Breath Sounds Gastrointestinal/Abdominal: Negative for: Tenderness, Distended, Guarding, Rebound Back: Negative for: L CVA Tenderness, R CVA Tenderness Extremity: Positive for: Normal ROM Neurologic/Psych: Positive for: Alert, Oriented, Mood/Affect (flat) - Laboratory Results Result Diagrams: 07/16/17 14:40 07/16/17 14:40 - ECG Interpretation Of ECG: NSR 83 bpm, no acute finding, reviewed by PA and ED attending O2 Sat by Pulse Oximetry: 95 Pulse Ox Interpretation: Normal - Other Rad CXR X-Ray: Interpreted by Me, Viewed By Me X-Ray Interpretation: no acute finding, no interval change CT Head X-Ray: Read By Radiologist X-Ray Interpretation: no acute finding Medical Decision Making Medical Decision Makin36 year old intoxicated male with generalized fatigue and malaise Plan: CBC CMP EKG CT head Trop UA IDS BAL IVF BAL: 340 Girlfriend at bedside will take patient home and assume responsibility of patient given that he is acutely intoxicated. Patient is stable for discharge with his girlfriend. Disposition - Clinical Impression Clinical Impression: Alcohol intoxication, ETOH abuse - Patient ED Disposition Is Patient to be Admitted: No Counseled Patient/Family Regarding: Studies Performed, Diagnosis, Need For Followup - Disposition Referrals: [facility] [place] [Outside] Disposition: Routine/Home Disposition Time: 16:57 Condition: FAIR Additional Instructions: Stop drinking. Consider inpatient detox for alcohol abuse. Return to ED any time if worse. Instructions: Alcohol Intoxication (ED), Abuse of Alcohol (ED) Results - Lab Results Lab Results: 07/16/17 07/16/17 14:40 14:40 WBC 5.9 RBC 4.92 Hgb 14.3 Hct 43.2 MCV 87.9 MCH 29.1 MCHC 33.1 RDW 13.2 Plt Count 297 MPV 7.7 Neut % (Auto) 54.2 Lymph % (Auto) 29.8 [place] % (Auto) 10.4 H Eos % (Auto) 4.4 H Baso % (Auto) 1.2 Neut # 3.2 Lymph # 1.8 [place] # 0.6 Eos # 0.3 Baso # 0.1 Sodium 150 H Potassium 3.7 Chloride 106 Carbon Dioxide 28 Anion Gap 20 BUN 7 L Creatinine 0.7 L Est GFR ( Amer) > 60 Est GFR (Non-Af Amer) > 60 Random Glucose 107 Calcium 9.0 Total Bilirubin 0.3 AST 79 H D ALT 61 Alkaline Phosphatase 90 Troponin I < 0.0120 Total Protein 7.0 Albumin 4.0 Globulin 3.0 Albumin/Globulin Ratio 1.3 Alcohol, Quantitative 340 H*
[2017-07-16] MEDS ORDERED: Sodium Chloride 0.9% 1,000 ML IV STA (14:27)
[2017-07-16 14:47] LABS: BASO # 0.1 K/uL (0.0-0.2); BASO % 1.2 % (0.0-2.0); EOS # 0.3 K/uL (0.0-0.7); EOS % 4.4 % (0.0-4.0); HEMATOCRIT 43.2 % (35.0-51.0); LYMPH # 1.8 K/uL (1.0-4.3); LYMPH % 29.8 % (20.0-40.0); MEAN CELL VOLUME 87.9 fl (80.0-94.0); MEAN CORPUSCULAR HEMOGLOBIN 29.1 pg (27.0-31.0); MEAN CORPUSCULAR HGB CONC 33.1 g/dL (33.0-37.0); MEAN PLATELET VOLUME 7.7 fl (7.2-11.7); MONO # 0.6 K/uL (0.0-0.8); MONO % 10.4 % (0.0-10.0); NEUT # 3.2 K/uL (1.8-7.0); NEUT % 54.2 % (50.0-75.0); NRBC % 0.1 % (0.0-0.0); RED CELL DISTRIBUTION WIDTH 13.2 % (11.5-14.5); WHITE BLOOD COUNT 5.9 K/uL (4.8-10.8)
[2017-07-16 14:55] VITALS: TEMP 98
[2017-07-16 14:56] LABS: ALB/GLOB RATIO 1.3 (1.0-2.1); ALKALINE PHOSPHATASE 90 U/L (38-126); ALT/SGPT 61 U/L (21-72); AST/SGOT 79 U/L (17-59); BILIRUBIN,TOTAL 0.3 mg/dl (0.2-1.3); BLOOD UREA NITROGEN 7 mg/dl (9-20); CARBON DIOXIDE 28 mmol/L (22-30); CHLORIDE 106 mmol/L (98-107); GFR AFRICAN-AMERICAN > 60; GLUCOSE,RANDOM 107 mg/dL (75-110); POTASSIUM 3.7 MMOL/L (3.6-5.0); SODIUM 150 mmol/l (132-148)
[2017-07-16 15:05] LABS: ALCOHOL SERUM 340 mg/dl (0-10)
--- NOTE | 2017-07-16 15:07 | RAD ---
HISTORY: clearance COMPARISON: Chest x-ray performed 07/12/17 TECHNIQUE: Chest, one view. FINDINGS: LUNGS: No focal consolidation. Please note that chest x-ray has limited sensitivity for the detection of pulmonary masses. PLEURA: No significant pleural effusion identified. No definite pneumothorax . CARDIOVASCULAR: Heart size appears within normal limits. OSSEOUS STRUCTURES: No acute osseous abnormality identified. VISUALIZED UPPER ABDOMEN: Unremarkable. OTHER FINDINGS: None. IMPRESSION: No focal consolidation, significant pleural effusion, or definite pneumothorax identified.
--- NOTE | 2017-07-16 16:11 | CT ---
PROCEDURE: CT HEAD WITHOUT CONTRAST. HISTORY: headache COMPARISON: Noncontrast head CT performed 07/12/17 TECHNIQUE: Axial computed tomography images were obtained through the head/brain without intravenous contrast. Radiation dose: Total exam DLP = 900.40 mGy-cm. This CT exam was performed using one or more of the following dose reduction techniques: Automated exposure control, adjustment of the mA and/or kV according to patient size, and/or use of iterative reconstruction technique. FINDINGS: HEMORRHAGE: No intracranial hemorrhage. BRAIN: No mass effect or edema. The green-white matter differentiation appears intact. VENTRICLES: No hydrocephalus. CALVARIUM: Unremarkable. PARANASAL SINUSES: Unremarkable as visualized. No significant inflammatory changes. MASTOID AIR CELLS: Unremarkable as visualized. No inflammatory changes. OTHER FINDINGS: None. IMPRESSION: No acute intracranial pathology identified.
[2017-07-16 17:57] VITALS: BP 132/67; PULSE 78; RESP 18; O2SAT 99
--- NOTE | 2017-07-17 19:53 | CARD ---
APPROVED REPORT EKG Measurement Heart [id number] <Conclusion> Normal sinus rhythm Normal ECG
== END 2017-07-16 17:57 | disposition home or self-care (01) ==
LOC: H.ER 13:54
DX: F10.129 Alcohol abuse with intoxication, unspecified (principal); Y90.8 Blood alcohol level of 240 mg/100 ml or more
CPT/HCPCS: 70450; 71010; 80053; 80320; 82948; 84484; 85025; 93005; 96360; 99282; J7040

== ENCOUNTER 2018-05-27 20:44 | Emergency (ER) | payer OTHER ==
[2018-05-27 20:44] VITALS: BMI 27.6
[2018-05-27 20:56] VITALS: TEMP 98.3
[2018-05-27] MEDS ORDERED: Sodium Chloride 0.9% 1,000 ML IV STA (21:21)
--- NOTE | 2018-05-27 21:37 | ED PDOC ---
HPI: Skin/Bite Injury Time Seen by Provider: 05/27/18 21:10 Chief Complaint (Nursing): Abnormal Skin Integrity Chief Complaint (Provider): Alcohol abuse and rash History Per: Patient History/Exam Limitations: no limitations Onset/Duration Of Symptoms: Hrs (today) Current Symptoms Are (Timing): Still Present Additional Complaint(s): Star Bautista is a 37 year old male, with a past medical history of HTN and alcohol abuse, who was brought to the emergency department by EMS after drinking approximately a pint of vodka. Patient states he has been in an argument with his boss but denies any suicidal or homicidal ideation. Patient is also complaining of a rash in right tricep area which he attributes to insect bites/ant bites while at park today. He denies any fever, chills or other medical complaints. Patient has history of being previously admitted for septic shock of unknown etiology. No further medical complaints. PMD: None provided. Past Medical History Reviewed: Historical Data, Nursing Documentation, Vital Signs Vital Signs: Last Vital Signs Temp 98.3 F 05/27/18 20:53 Pulse 143 H 05/27/18 20:53 Resp 16 05/27/18 20:53 BP 147/84 05/27/18 20:53 Pulse Ox 95 05/27/18 21:40 - Medical History PMH: Anxiety, Depression, HTN Denies: HIV, Chronic Kidney Disease - Surgical History Surgical History: No Surg Hx - Family History Family History: States: Unknown Family Hx - Home Medications Home Medications: Ambulatory Orders Medication Instructions Recorded Acamprosate Calcium 2 cap PO TID 07/12/17 Dextroamphetamine/Amphetamine 20 mg PO DAILY 07/12/17 [Adderall Xr 20 mg Capsule] Valerian Root 1 cap PO DAILY 07/12/17 Vitamin B Complex 1 tab PO DAILY 07/12/17 Bupropion HCl [Wellbutrin Sr] 150 mg PO Q12H #30 tab.er.12h 07/13/17 Folic Acid 1 mg PO DAILY #30 tab 07/13/17 Naltrexone [Revia] 50 mg PO DAILY #30 tab 07/13/17 Propranolol [Inderal] 10 mg PO TID #30 tab 07/13/17 Thiamine [Vitamin B1 Tab] 50 mg PO DAILY #30 tab 07/13/17 traZODone [Desyrel] 50 mg PO HS #30 tab 07/13/17 - Allergies Allergies/Adverse Reactions: Allergies Allergy/AdvReac Type Severity Reaction Status Date / Time No Known Allergies Allergy Verified 05/27/18 20:53 Review of Systems ROS Statement: Except As Marked, All Systems Reviewed And Found Negative Constitutional: Positive for: Other (alcohol abuse). Negative for: Fever, Chills Skin: Positive for: Rash (right tricep area) Psych: Negative for: Suicidal ideation (or homicidal ideation) Physical Exam - Reviewed Nursing Documentation Reviewed: Yes Vital Signs Reviewed: Yes - Physical Exam Appears: Positive for: No Acute Distress Head Exam: Positive for: ATRAUMATIC, NORMAL INSPECTION, NORMOCEPHALIC Skin: Positive for: Normal Color, Warm, Dry, Rash (right tricep with erythematous flat confluent rash, no papules or drainage) Eye Exam: Positive for: Normal appearance, EOMI, PERRL Neck: Positive for: Painless ROM Cardiovascular/Chest: Positive for: Regular Rate, Rhythm. Negative for: Murmur Respiratory: Positive for: Normal Breath Sounds. Negative for: Respiratory Distress Gastrointestinal/Abdominal: Positive for: Normal Exam, Soft. Negative for: Tenderness Extremity: Positive for: Normal ROM (upper and lower extremities). Negative for : Deformity, Swelling Neurologic/Psych: Positive for: Alert, Oriented. Negative for: Motor/Sensory Deficits - Laboratory Results Result Diagrams: 05/27/18 21:55 05/27/18 21:55 - ECG O2 Sat by Pulse Oximetry: 95 (RA) Pulse Ox Interpretation: Normal Medical Decision Making Medical Decision Making: Time: 21:10 Initial Plan: --Alcohol serum --CMP --Drug screen, urine --CBC w/ differential --Sodium Chloride 1,000 ml IV 200 mls/hr --Reevaluation ----- Scribe Attestation: Documented by Kamari Nixon, acting as a scribe for Esa Martell MD. Provider Scribe Attestation: All medical record entries made by the Scribe were at my direction and personally dictated by me. I have reviewed the chart and agree that the record accurately reflects my personal performance of the history, physical exam, medical decision making, and the department course for this patient. I have also personally directed, reviewed, and agree with the discharge instructions and disposition. Disposition - Clinical Impression Clinical Impression: ETOH abuse - Patient ED Disposition Is Patient to be Admitted: Transfer of Care - Disposition Disposition: Transfer of Care Disposition Time: 23:54 Condition: FAIR Forms: [employer] (Belgian) Patient Signed Over To: Maverick Emery
[2018-05-27 22:00] LABS: BASO # 0.1 K/uL (0.0-0.2); BASO % 1.9 % (0.0-2.0); EOS # 0.1 K/uL (0.0-0.7); EOS % 1.9 % (0.0-4.0); HEMOGLOBIN 14.6 g/dL (12.0-18.0); LYMPH # 0.6 K/uL (1.0-4.3); LYMPH % 15.8 % (20.0-40.0); MEAN CELL VOLUME 93.5 fl (80.0-94.0); MEAN CORPUSCULAR HEMOGLOBIN 31.7 pg (27.0-31.0); MEAN CORPUSCULAR HGB CONC 33.9 g/dL (33.0-37.0); MEAN PLATELET VOLUME 7.4 fl (7.2-11.7); MONO # 0.7 K/uL (0.0-0.8); MONO % 16.7 % (0.0-10.0); NEUT # 2.6 K/uL (1.8-7.0); NEUT % 63.7 % (50.0-75.0); RBC 4.6 Mil/uL (4.40-5.90); RED CELL DISTRIBUTION WIDTH 13.9 % (11.5-14.5); WHITE BLOOD COUNT 4.1 K/uL (4.8-10.8)
[2018-05-27 22:12] LABS: ALB/GLOB RATIO 1.5 (1.0-2.1); ALBUMIN 4.8 g/dL (3.5-5.0); ALT/SGPT 135 U/L (21-72); AST/SGOT 236 U/L (17-59); BLOOD UREA NITROGEN 8 mg/dl (9-20); GFR AFRICAN-AMERICAN > 60; GFR NON-AFRICAN AMERICAN > 60
[2018-05-27] MEDS ORDERED: Potassium Chloride 20 mEq ER Tab PO ONE (22:14)
[2018-05-27] MEDS ORDERED: Iohexol 300 100 ML IJ ONE (23:52)
[2018-05-27] MEDS ORDERED: Sodium Chloride 0.9% 50 ML IV ONE (23:52)
--- NOTE | 2018-05-28 00:19 | ED PDOC ---
- Laboratory Results Result Diagrams: 05/27/18 21:55 05/27/18 21:55 - ECG O2 Sat by Pulse Oximetry: 95 (RA) Pulse Ox Interpretation: Normal - Progress Re-evaluation Time: 05:51 Condition: Re-examined, Improved Medical Decision Making Medical Decision Makin:00 --Care endorsed to me by Dr. Martell pending CT, clinical sobriety, reevaluation and final disposition. 00:32 CT Abd & Pelvis FINDINGS: Lung bases: Unremarkable. No mass. No consolidation. ABDOMEN: Liver: There is hepatomegaly and fatty infiltration of the liver. Gallbladder and bile ducts: Unremarkable. No calcified stones. No ductal dilation. Pancreas: Unremarkable. No mass. No ductal dilation. Spleen: Unremarkable. No splenomegaly. Adrenals: Unremarkable. No mass. Kidneys and ureters: Unremarkable. No solid mass. No hydronephrosis. Stomach and bowel: Unremarkable. No obstruction. No mucosal thickening. PELVIS: Appendix: No findings to suggest acute appendicitis. Bladder: Unremarkable. No mass. Reproductive: Unremarkable as visualized. ABDOMEN and PELVIS: Intraperitoneal space: Unremarkable. No free air. No significant fluid collection. Bones/joints: No acute fracture. No dislocation. Soft tissues: There is a small fat-containing umbilical hernia. Vasculature: Unremarkable. No abdominal aortic aneurysm. Lymph nodes: Unremarkable. No enlarged lymph nodes. IMPRESSION: No acute findings. Scribe Attestation: Documented by Germaine Arellano, acting as a scribe for Maverick Rojas MD Provider Scribe Attestation: All medical record entries made by the Scribe were at my direction and personally dictated by me. I have reviewed the chart and agree that the record accurately reflects my personal performance of the history, physical exam, medical decision making, and the department course for this patient. I have also personally directed, reviewed, and agree with the discharge instructions and disposition. Disposition Counseled Patient/Family Regarding: Studies Performed, Diagnosis, Need For Followup - Clinical Impression Clinical Impression: ETOH abuse, Abdominal pain, Dehydration, Rash - POA Present On Arrival: None - Disposition Disposition: Routine/Home Disposition Time: 05:51 Condition: GOOD Additional Instructions: Follow up with your PCP in 2-3 days. Instructions: Alcohol Abuse and Alcoholism (DC), Dehydration, Adult (DC)
[2018-05-28] MEDS ORDERED: Potassium Chloride 20 mEq ER Tab PO ONE (05:57)
[2018-05-28 06:06] VITALS: BP 130/86
[2018-05-28 06:19] VITALS: PULSE 99; O2SAT 99
[2018-05-28 06:20] VITALS: RESP 16
--- NOTE | 2018-05-28 11:03 | CT ---
Date of service: 05/27/2018 PROCEDURE: CT Abdomen and Pelvis with contrast HISTORY: Abd pain COMPARISON: None. TECHNIQUE: Contrast dose: 90 mL Omnipaque 300 Radiation dose: Total exam DLP = 392.31 mGy-cm. This CT exam was performed using one or more of the following dose reduction techniques: Automated exposure control, adjustment of the mA and/or kV according to patient size, and/or use of iterative reconstruction technique. FINDINGS: LOWER THORAX: Unremarkable. LIVER: Diffusely diminished attenuation consistent with fatty infiltration. There is an irregularly shaped low-attenuation lesion in the medial segment left hepatic lobe measuring 3.1 x 2.2 cm. Nonspecific. Consider further evaluation with multiphasic contrast enhanced CT examination. No other mass. Smooth contour. No biliary dilatation. GALLBLADDER AND BILE DUCTS: Unremarkable. PANCREAS: Unremarkable. No gross lesion or ductal dilatation. SPLEEN: Unremarkable. ADRENALS: Unremarkable. No mass. KIDNEYS AND URETERS: Unremarkable. No hydronephrosis. No solid mass. VASCULATURE: Unremarkable. No aortic aneurysm. BOWEL: Unremarkable. No obstruction. No gross mural thickening. APPENDIX: Normal appendix. PERITONEUM: Unremarkable. No free fluid. No free air. LYMPH NODES: Unremarkable. No enlarged lymph nodes. BLADDER: Unremarkable. REPRODUCTIVE: Normal prostate BONES: No acute fracture. OTHER FINDINGS: None. IMPRESSION: Nonspecific low-attenuation 3.1 cm lesion in the medial segment left hepatic lobe. Recommend further evaluation with multiphasic contrast enhanced CT examination. The preliminary findings for this examination were reported by [facility]om[facility] at 12:32 a.m. on 05/28/2018. There is discordance of this report with the preliminary findings. Low-attenuation lesion in the left lobe of the liver was not described in the preliminary report of this examination.
== END 2018-05-28 06:15 | disposition home or self-care (01) ==
LOC: H.ER 20:44
DX: F10.10 Alcohol abuse, uncomplicated (principal); E86.0 Dehydration; R21 Rash and other nonspecific skin eruption; R10.13 Epigastric pain; Z86.59 Personal history of other mental and behavioral disorders; I10 Essential (primary) hypertension
CPT/HCPCS: 74177; 80053; 80320; 85025; 99283; J7030; Q9967

== ENCOUNTER 2018-05-31 21:01 | Emergency (ER) | payer OTHER ==
[2018-05-31 21:05] VITALS: BMI 26.6
[2018-05-31 21:11] VITALS: RESP 16
[2018-05-31] MEDS ORDERED: Multivitamin (MVI) 10 ML, Folic Acid 1 MG, Thiamine 100 MG in Dextrose 5%/0.45% NS 1,00... IV ONE ×2 (21:48→22:34)
[2018-05-31 22:59] LABS: BASO # 0.1 K/uL (0.0-0.2); BASO % 0.7 % (0.0-2.0); EOS # 0.1 K/uL (0.0-0.7); EOS % 0.7 % (0.0-4.0); HEMOGLOBIN 14.4 g/dL (12.0-18.0); LYMPH # 0.6 K/uL (1.0-4.3); LYMPH % 4.8 % (20.0-40.0); MEAN CELL VOLUME 94.9 fl (80.0-94.0); MEAN CORPUSCULAR HEMOGLOBIN 32.3 pg (27.0-31.0); MEAN PLATELET VOLUME 8.3 fl (7.2-11.7); MONO # 1.5 K/uL (0.0-0.8); MONO % 11.7 % (0.0-10.0); NEUT # 10.4 K/uL (1.8-7.0); NEUT % 82.1 % (50.0-75.0); PLATELET COUNT 171 K/uL (130-400); RBC 4.46 Mil/uL (4.40-5.90); RED CELL DISTRIBUTION WIDTH 13.9 % (11.5-14.5); WHITE BLOOD COUNT 12.6 K/uL (4.8-10.8)
[2018-05-31 23:25] LABS: ALB/GLOB RATIO 1.5 (1.0-2.1); ALBUMIN 4.9 g/dL (3.5-5.0); ALT/SGPT 129 U/L (21-72); AST/SGOT 141 U/L (17-59); BLOOD UREA NITROGEN 13 mg/dl (9-20); GFR NON-AFRICAN AMERICAN > 60
--- NOTE | 2018-05-31 23:54 | ED PDOC ---
HPI: Seizure Time Seen by Provider: 05/31/18 21:09 Chief Complaint (Nursing): Seizure Chief Complaint (Provider): Seizure History Per: Patient, Family History/Exam Limitations: no limitations Number Of Seizures: One Length Of Seizures (Duration): Seconds (45 seconds) Associated Symptoms: Bit Tongue Additional Complaint(s): Star Bautista is a 37 year old male with a past medical history of ADHD , depression, and alcoholism who is presenting to the ED for evaluation of witnessed seizure onset today just prior to arrival. Girlfriend reports that the seizure lasted 45 seconds and was tonic clonic with foaming at the mouth and eye rolling. Patient denies any post-ictal phase and was alert very quickly but could move legs. He reports feeling well but does admit to biting his tongue. He states that he has had prior seizures but has never taken any medications of had clinical assessment. Patient reports taking Wellbutrin and Adderall on occasion for ADHD. PMD: none provided Past Medical History Reviewed: Historical Data, Nursing Documentation, Vital Signs Vital Signs: Last Vital Signs Temp 98.5 F 06/01/18 01:11 Pulse 92 H 06/01/18 01:11 Resp 16 06/01/18 01:11 BP 134/92 H 06/01/18 01:11 Pulse Ox 99 06/01/18 01:11 - Medical History PMH: Anxiety, Depression, HTN Denies: HIV, Chronic Kidney Disease Other PMH: ADHD - Surgical History Surgical History: No Surg Hx - Family History Family History: States: Unknown Family Hx - Social History Current smoker - smoking cessation education provided: No Alcohol: > 2 Drinks/Day Drugs: Denies - Home Medications Home Medications: Ambulatory Orders Medication Instructions Recorded Acamprosate Calcium 2 cap PO TID 07/12/17 Dextroamphetamine/Amphetamine 20 mg PO DAILY 07/12/17 [Adderall Xr 20 mg Capsule] Valerian Root 1 cap PO DAILY 07/12/17 Vitamin B Complex 1 tab PO DAILY 07/12/17 Bupropion HCl [Wellbutrin Sr] 150 mg PO Q12H #30 tab.er.12h 07/13/17 Folic Acid 1 mg PO DAILY #30 tab 07/13/17 Naltrexone [Revia] 50 mg PO DAILY #30 tab 07/13/17 Propranolol [Inderal] 10 mg PO TID #30 tab 07/13/17 Thiamine [Vitamin B1 Tab] 50 mg PO DAILY #30 tab 07/13/17 traZODone [Desyrel] 50 mg PO HS #30 tab 07/13/17 - Allergies Allergies/Adverse Reactions: Allergies Allergy/AdvReac Type Severity Reaction Status Date / Time No Known Allergies Allergy Verified 05/31/18 21:05 Review of Systems ROS Statement: Except As Marked, All Systems Reviewed And Found Negative ENT: Positive for: Other (tongue biting) Neurological: Positive for: Seizures Physical Exam - Reviewed Nursing Documentation Reviewed: Yes Vital Signs Reviewed: Yes - Physical Exam Appears: Positive for: Well, Non-toxic, No Acute Distress Head Exam: Positive for: ATRAUMATIC, NORMAL INSPECTION, NORMOCEPHALIC Skin: Positive for: Normal Color, Warm, DRY Eye Exam: Positive for: Normal appearance ENT: Positive for: Other (abrasion on tongue) Neck: Positive for: Normal, Painless ROM Cardiovascular/Chest: Positive for: Regular Rate, Rhythm. Negative for: Murmur Respiratory: Positive for: Normal Breath Sounds. Negative for: Respiratory Distress Gastrointestinal/Abdominal: Positive for: Normal Exam, Soft. Negative for: Tenderness Back: Positive for: Normal Inspection Extremity: Positive for: Normal ROM. Negative for: Deformity, Swelling Neurologic/Psych: Positive for: Alert, Oriented. Negative for: Motor/Sensory Deficits - Laboratory Results Result Diagrams: 05/31/18 22:50 05/31/18 22:50 - ECG O2 Sat by Pulse Oximetry: 98 (RA) Pulse Ox Interpretation: Normal Medical Decision Making Medical Decision Making: Time: 22:34 Impression: 37 year old male with seizure in setting of alcohol use Plan: --CT Head --EKG --Alcohol Serum --CMP --Drug Screen --Lact Acid, Plasma --Magnesium --ED Urine Dipstick --CBC --Glucose, POC --Dexterose --Accucheck CT Head FINDINGS: Brain: Unremarkable. No hemorrhage. No significant white matter disease. No edema. Ventricles: Unremarkable. No ventriculomegaly. Bones/joints: Unremarkable. No acute fracture. Soft tissues: Unremarkable. Sinuses: Unremarkable as visualized. No acute sinusitis. Mastoid air cells: Unremarkable as visualized. No mastoid effusion. IMPRESSION: Normal head/brain CT. 1:20 Patient has remained stable and seizure free in ED with no farther seizure-like activity. Patient declined referral to detoxification facility. He states that he will follow up with neurologist and psychiatrist. He was informed that Wellbutrin can cause seizure activity and patient states that he will discuss that during his followup appointments. Due to no further seizure activity, patient will be discharged home and is medically stable as per provider evaluation. Scribe Attestation: Documented by Soila Lewis, acting as a scribe for Edgar Simental MD. Provider Scribe Attestation: All medical record entries made by the Scribe were at my direction and personally dictated by me. I have reviewed the chart and agree that the record accurately reflects my personal performance of the history, physical exam, medical decision making, and the department course for this patient. I have also personally directed, reviewed, and agree with the discharge instructions and disposition. Disposition - Clinical Impression Clinical Impression: Witnessed seizure - Patient ED Disposition Is Patient to be Admitted: No - Disposition Referrals: Cristo Durham MD [Staff Provider] - Disposition: Routine/Home Disposition Time: 01:25 Condition: STABLE Instructions: Seizures Forms: [employer] (Mexican)
[2018-06-01 01:13] VITALS: BP 134/92; PULSE 92; TEMP 98.5
[2018-06-01 01:28] LABS: BARBITURATES, UR NEGATIVE (NEGATIVE); BENZODIAZEPINES, UR NEGATIVE (NEGATIVE); OPIATES, UR NEGATIVE (NEGATIVE); PHENCYCLIDINE, UR NEGATIVE (NEGATIVE)
[2018-06-01 01:29] VITALS: O2SAT 98
[2018-06-01 02:01] LABS: LYMPHOCYTE 6 % (20-50); MONOCYTE 7 % (0-10); NEUTROPHIL 87 % (42-75); PLATELET ESTIMATE NORMAL (NORMAL); TOTAL CELLS COUNTED 100
--- NOTE | 2018-06-01 08:28 | CT ---
Date of service: 05/31/2018 PROCEDURE: CT HEAD WITHOUT CONTRAST. HISTORY: Seizure COMPARISON: None available. TECHNIQUE: Axial computed tomography images were obtained through the head/brain without intravenous contrast. Radiation dose: Total exam DLP = 907.57 mGy-cm. This CT exam was performed using one or more of the following dose reduction techniques: Automated exposure control, adjustment of the mA and/or kV according to patient size, and/or use of iterative reconstruction technique. FINDINGS: HEMORRHAGE: No intracranial hemorrhage. BRAIN: Cortez-white matter differentiation is preserved. There is no mass, mass effect or abnormal extra-axial fluid collection. There is no territorial infarction. The midline sagittal structures are normal. VENTRICLES: There is mild age advanced global parenchymal volume loss and proportionate enlargement of the ventricles and cortical sulci. CALVARIUM: There is no calvarial fracture or extracranial soft tissue swelling. PARANASAL SINUSES: Predominantly clear. MASTOID AIR CELLS: Predominantly clear. OTHER FINDINGS: None. IMPRESSION: No acute intracranial abnormality. Mild global parenchymal volume loss, advanced for the patient's age.
--- NOTE | 2018-06-01 09:10 | CARD ---
APPROVED REPORT Date of service: 05/31/2018 EKG Measurement Heart [id number] CT [id number] <Conclusion> Normal sinus rhythm Normal ECG
== END 2018-06-01 01:30 | disposition home or self-care (01) ==
LOC: H.ER 21:01
DX: R56.9 Unspecified convulsions (principal); I10 Essential (primary) hypertension; Z86.59 Personal history of other mental and behavioral disorders; F90.9 Attention-deficit hyperactivity disorder, unspecified type
CPT/HCPCS: 70450; 80053; 80320; 80324; 80345; 80346; 80349; 80353; 80358; 80361; 82948; 83605; 83735; 83992; 85025; 93005; 96374; 99285; J3411; J7042

== ENCOUNTER 2018-06-21 18:28 | Emergency (ER) | payer OTHER ==
[2018-06-21 18:28] VITALS: BMI 26.6
[2018-06-21 19:34] LABS: BASO # 0.1 K/uL (0.0-0.2); BASO % 0.7 % (0.0-2.0); EOS # 0.3 K/uL (0.0-0.7); EOS % 3.9 % (0.0-4.0); HEMOGLOBIN 16.3 g/dL (12.0-18.0); LYMPH # 2.1 K/uL (1.0-4.3); MEAN CELL VOLUME 93.9 fl (80.0-94.0); MEAN CORPUSCULAR HGB CONC 34.1 g/dL (33.0-37.0); MEAN PLATELET VOLUME 7.7 fl (7.2-11.7); MONO # 0.6 K/uL (0.0-0.8); MONO % 6.7 % (0.0-10.0); NEUT # 5.2 K/uL (1.8-7.0); NEUT % 63.7 % (50.0-75.0); NRBC % 0.1 % (0.0-0.0); RBC 5.09 Mil/uL (4.40-5.90); RED CELL DISTRIBUTION WIDTH 14.2 % (11.5-14.5); WHITE BLOOD COUNT 8.2 K/uL (4.8-10.8)
[2018-06-21 19:54] LABS: ALB/GLOB RATIO 1.2 (1.0-2.1); ALBUMIN 4.5 g/dL (3.5-5.0); ALT/SGPT 53 U/L (21-72); AST/SGOT 81 U/L (17-59); BLOOD UREA NITROGEN 7 mg/dl (9-20); CALCIUM 8.8 mg/dL (8.4-10.2); GFR NON-AFRICAN AMERICAN > 60
[2018-06-21] MEDS ORDERED: Multivitamin (MVI) 10 ML, Folic Acid 1 MG, Thiamine 100 MG in Dextrose 5%/0.45% NS 1,00... IV ONE (20:00)
[2018-06-21 20:12] VITALS: PULSE 94; O2SAT 96
--- NOTE | 2018-06-21 20:36 | ED PDOC ---
HPI: Seizure Time Seen by Provider: 06/21/18 19:13 Chief Complaint (Nursing): Seizure Chief Complaint (Provider): Seizure History Per: Patient History/Exam Limitations: no limitations Additional Complaint(s): 37 y/o male with a PMHx of seizure disorder, alcoholism, depression and anxiety presents with significant other for evaluation of what may have been a seizure. Significant other reports patient appeared disoriented, with blood on face, feeling as if he bit his tongue. Patient offers no complaints on arrival. Patient denies alcohol use despite history of alcoholism. PMD: No Provider Past Medical History Reviewed: Historical Data, Nursing Documentation, Vital Signs Vital Signs: Last Vital Signs Temp 98.3 F 06/21/18 23:47 Pulse 94 H 06/21/18 23:47 Resp 18 06/21/18 23:47 BP 108/87 06/21/18 23:47 Pulse Ox 96 06/22/18 00:02 - Medical History PMH: Anxiety, Depression, HTN Denies: HIV, Chronic Kidney Disease - Surgical History Surgical History: No Surg Hx - Family History Family History: States: Unknown Family Hx - Social History Current smoker - smoking cessation education provided: No Alcohol: > 2 Drinks/Day Drugs: Denies - Home Medications Home Medications: Ambulatory Orders Medication Instructions Recorded Acamprosate Calcium 2 cap PO TID 07/12/17 Dextroamphetamine/Amphetamine 20 mg PO DAILY 07/12/17 [Adderall Xr 20 mg Capsule] Valerian Root 1 cap PO DAILY 07/12/17 Vitamin B Complex 1 tab PO DAILY 07/12/17 Bupropion HCl [Wellbutrin Sr] 150 mg PO Q12H #30 tab.er.12h 07/13/17 Folic Acid 1 mg PO DAILY #30 tab 07/13/17 Naltrexone [Revia] 50 mg PO DAILY #30 tab 07/13/17 Propranolol [Inderal] 10 mg PO TID #30 tab 07/13/17 Thiamine [Vitamin B1 Tab] 50 mg PO DAILY #30 tab 07/13/17 traZODone [Desyrel] 50 mg PO HS #30 tab 07/13/17 - Allergies Allergies/Adverse Reactions: Allergies Allergy/AdvReac Type Severity Reaction Status Date / Time No Known Allergies Allergy Verified 05/31/18 21:05 Review of Systems ROS Statement: Except As Marked, All Systems Reviewed And Found Negative Neurological: Positive for: Seizures Physical Exam - Reviewed Nursing Documentation Reviewed: Yes Vital Signs Reviewed: Yes - Physical Exam Appears: Positive for: No Acute Distress Head Exam: Positive for: ATRAUMATIC, NORMOCEPHALIC Skin: Positive for: Normal Color, Warm, Dry Eye Exam: Positive for: Normal appearance, EOMI, PERRL Neck: Positive for: Normal, Painless ROM, Supple Cardiovascular/Chest: Positive for: Regular Rate, Rhythm. Negative for: Murmur Respiratory: Positive for: Normal Breath Sounds. Negative for: Respiratory Distress Gastrointestinal/Abdominal: Positive for: Normal Exam, Soft. Negative for: Tenderness Extremity: Positive for: Normal ROM. Negative for: Pedal Edema, Deformity Neurologic/Psych: Positive for: Alert, Oriented. Negative for: Motor/Sensory Deficits - Laboratory Results Result Diagrams: 06/21/18 19:30 06/21/18 19:30 - ECG O2 Sat by Pulse Oximetry: 96 (RA) Pulse Ox Interpretation: Normal Medical Decision Making Medical Decision Making: Time: 1929 Impression: 37 y/o male with seizure, in setting of alcohol use Plan: -- EKG -- Alcohol Serum -- CMP -- Urine Drug Screen -- ED Urine Dipstick -- CBC with differentials -- Heplock Insertion -- Accucheck Time: 2001 Plan: -- Lact Acid, Plasma -- Dextrose 5%/0/45% NS 1000 ml MVI 10 ml Folic Acid 1 mg Vitamin B1 Inj 100 mg IV 250 mls/hr 23:55 -Labs reviewed and showed no clinical significant abnormalities with exception of blood alcohol level. Patient initially denied using alcohol but now admits to use. Patient was offered detox referral but he declined, stating he will look into outpatient detox. Diagnosis of alcoholism and seizure. Patient will be discharged to significant other. Scribe Attestation: Documented by Akira Garvin acting as a scribe for Edgar Simental MD. Provider Scribe Attestation: All medical record entries made by the Scribe were at my direction and personally dictated by me. I have reviewed the chart and agree that the record accurately reflects my personal performance of the history, physical exam, medical decision making, and the department course for this patient. I have also personally directed, reviewed, and agree with the discharge instructions and disposition. Disposition - Clinical Impression Clinical Impression: Alcohol related seizure, Alcoholism - Disposition Referrals: Cristo Durham MD [Staff Provider] - Disposition: Routine/Home Disposition Time: 23:55 Condition: STABLE Instructions: Seizures, Alcohol Abuse and Alcoholism (DC) Forms: [employer] ([place]i)
[2018-06-22 00:02] VITALS: BP 108/87; RESP 18; TEMP 98.3
[2018-06-22 00:38] LABS: BARBITURATES, UR NEGATIVE (NEGATIVE); BENZODIAZEPINES, UR NEGATIVE (NEGATIVE); OPIATES, UR NEGATIVE (NEGATIVE); PHENCYCLIDINE, UR NEGATIVE (NEGATIVE)
--- NOTE | 2018-06-22 06:37 | CARD ---
APPROVED REPORT Date of service: 06/21/2018 EKG Measurement Heart [id number] MS [id number] <Conclusion> Normal sinus rhythm Normal Electrocardiogram
== END 2018-06-21 23:55 | disposition home or self-care (01) ==
LOC: H.ER 18:28
DX: G40.501 Epileptic seizures related to external causes, not intractable, with status epilepticus (principal); F10.20 Alcohol dependence, uncomplicated; I10 Essential (primary) hypertension; F41.9 Anxiety disorder, unspecified
CPT/HCPCS: 80053; 80320; 82948; 83605; 85025; 93005; 96365; 96366; 99285; J3411; J7042

== ENCOUNTER 2018-06-24 20:06 | Emergency (ER) | payer OTHER ==
[2018-06-24 20:06] VITALS: BMI 26.6
[2018-06-24] MEDS ORDERED: Sodium Chloride 0.9% 1,000 ML IV SCH (21:30)
[2018-06-24 22:09] LABS: BASO # 0.1 K/uL (0.0-0.2); BASO % 1.5 % (0.0-2.0); EOS # 0.3 K/uL (0.0-0.7); EOS % 3.8 % (0.0-4.0); HEMOGLOBIN 15.6 g/dL (12.0-18.0); LYMPH # 1.6 K/uL (1.0-4.3); LYMPH % 20.6 % (20.0-40.0); MEAN CELL VOLUME 93.1 fl (80.0-94.0); MEAN CORPUSCULAR HEMOGLOBIN 31.2 pg (27.0-31.0); MEAN CORPUSCULAR HGB CONC 33.5 g/dL (33.0-37.0); MEAN PLATELET VOLUME 7.4 fl (7.2-11.7); MONO # 0.7 K/uL (0.0-0.8); MONO % 9.1 % (0.0-10.0); NEUT # 5.2 K/uL (1.8-7.0); RBC 4.98 Mil/uL (4.40-5.90); RED CELL DISTRIBUTION WIDTH 13.2 % (11.5-14.5)
[2018-06-24] MEDS ORDERED: Sodium Chloride 0.9% 1,000 ML IV ONE (22:21)
--- NOTE | 2018-06-24 22:23 | ED PDOC ---
HPI: Psych/Substance Abuse Time Seen by Provider: 06/24/18 21:17 Chief Complaint (Nursing): Alcohol Ingestion Chief Complaint (Provider): Alcohol Ingestion History Per: EMS, Other (significant other at bedside) Additional Complaint(s): 33 year old male brought in by EMS accompanied by girlfriend for evaluation of alcohol intoxication. Girlfriend at bedside reports patient is a daily drinker and he walked out of the house earlier this evening while intoxicated. She states when she left the house to find him, she found him outside laying on the ground. She states she is unsure if he had a seizure, if he fell, or if he was sleeping. She reports patient has a history of alcohol induced seizures. Patient is not verbalizing any complaints at this time and does admit to drinking heavily. Patient will not offer any additional information at this time however denies headache, dizziness, nausea, chest pain, recent fever. PMD: none Past Medical History Reviewed: Historical Data, Nursing Documentation, Vital Signs Vital Signs: Last Vital Signs Temp 97.0 F L 06/24/18 20:50 Pulse 127 H 06/24/18 20:50 Resp 16 06/24/18 20:50 BP 124/86 06/24/18 20:50 Pulse Ox 94 L 06/24/18 20:50 - Medical History PMH: Anxiety, Depression, HTN, Seizures Other PMH: ADHD - Surgical History Surgical History: No Surg Hx - Family History Family History: States: Unknown Family Hx - Social History Current smoker - smoking cessation education provided: No Alcohol: > 2 Drinks/Day Drugs: Denies - Home Medications Home Medications: Ambulatory Orders Medication Instructions Recorded Acamprosate Calcium 2 cap PO TID 07/12/17 Dextroamphetamine/Amphetamine 20 mg PO DAILY 07/12/17 [Adderall Xr 20 mg Capsule] Valerian Root 1 cap PO DAILY 07/12/17 Vitamin B Complex 1 tab PO DAILY 07/12/17 Bupropion HCl [Wellbutrin Sr] 150 mg PO Q12H #30 tab.er.12h 07/13/17 Folic Acid 1 mg PO DAILY #30 tab 07/13/17 Naltrexone [Revia] 50 mg PO DAILY #30 tab 07/13/17 Propranolol [Inderal] 10 mg PO TID #30 tab 07/13/17 Thiamine [Vitamin B1 Tab] 50 mg PO DAILY #30 tab 07/13/17 traZODone [Desyrel] 50 mg PO HS #30 tab 07/13/17 - Allergies Allergies/Adverse Reactions: Allergies Allergy/AdvReac Type Severity Reaction Status Date / Time No Known Allergies Allergy Verified 05/31/18 21:05 Review of Systems ROS Statement: Except As Marked, All Systems Reviewed And Found Negative Psych: Positive for: Other (intoxication) Physical Exam - Reviewed Nursing Documentation Reviewed: Yes Vital Signs Reviewed: Yes - Physical Exam Comments: GENERAL APPEARANCE: Patient is somnolent with odor of alcohol on breath. Responsive to painful and verbal stimuli. SKIN: Warm, dry; (-) cyanosis HEAD: (-) scalp hematoma, (-) scalp tenderness (-) evidence of trauma EYES: Pupils equal and reactive. ENMT: Mucous membranes moist. Airway patent: (-) stridor. NECK: Supple, FROM (-) tenderness HEART AND CARDIOVASCULAR: (-) irregularity CHEST AND RESPIRATORY: (-) rales, (-) rhonchi, (-) wheezes; breath sounds equal. Respirations even and nonlabored. ABDOMEN: Soft, (-) distention, (-) tenderness, (-) guarding. EXTREMITIES: FROM throughout (-) visible trauma to extremities, (-) deformity, ( -) edema. NEURO AND PSYCH: Mental status as above. Affect: flat. (-) facial asymmetry - Laboratory Results Result Diagrams: 06/24/18 22:04 06/24/18 22:04 - ECG O2 Sat by Pulse Oximetry: 94 (RA) Pulse Ox Interpretation: Normal Medical Decision Making Medical Decision Makin Impression: Alcohol intoxication, concern for head injury Plan: -CT head w/o contrast -Alcohol serum -CMP -UDS -Udip -CBC -FSBS -NS 1L IVB -Zofran 4mg IVP -IV insertion -Reevaluation 2219 On re-evaluation, patient resting comfortably with girlfriend at bedside. No additional complaints at present. Repeat HR: 99 Accucheck: 91 2305 CBC and CMP grossly unremarkable Serum Alcohol: [address] reviewed, radiology report follows EXAM: CT Head Without Intravenous Contrast CLINICAL HISTORY: 37 years old, male; Signs and symptoms; Other: Intoxicated; Additional info: Poss head injury, intoxicated TECHNIQUE: Axial computed tomography images of the head/brain without intravenous contrast. All CT scans at this facility use at least one of these dose optimization techniques: automated exposure control; mA and/or kV adjustment per patient size (includes targeted exams where dose is matched to clinical indication); or iterative reconstruction. Coronal and sagittal reformatted images were created and reviewed. COMPARISON: CT - HEAD W/O CONTRAST 05/31/2018 10:57 PM FINDINGS: Brain: No hemorrhage. No significant periventricular microischemic changes. No edema. Ventricles: Appropriate for patient's age. Bones/joints: No acute fracture. Soft tissues: No radiopaque foreign body. Sinuses: No acute sinusitis. Mastoid air cells: No mastoid effusion. IMPRESSION: No acute CT intracranial abnormalities. Thank you for allowing us to participate in the care of your patient. Dictated and Authenticated by: Dio Hernandez MD 06/25/2018 12:33 AM Eastern Time ([place] & [place]) Additional 1L NS ordered. Pending clinical sobriety. 0400 Patient remains asleep in ED. Vitals stable. Utox: (+) amphetamines 0630 Repeat HR: 84 Repeat O2: 98% on RA Patient now awake, alert, and oriented x3 and interacting with girlfriend. No complaints verbalized. Ambulatory in ED with a steady, unassisted gait. Lungs clear to auscultation, cardiac RRR, abdomen soft, non-tender, repeat neuro exam shows no focal findings. VSS, stable for discharge. Lab/Diagnostic results d/w the patient in great detail. Diagnosis of alcohol abuse with intoxication d/w the patient. Based on history, exam and diagnostic results, plan will be for outpatient follow up. Patient was observed ein ED for 10+ hours with no evidence of neurological deterioration. Patient instructed to follow-up with pmd / referral provided / the clinic in 1- 2 days without fail. Return to the emergency room at any time for any new or worsening symptoms. Patient states he fully agrees with and understands discharge instructions. States that he agrees with the plan and disposition. Verbalized and repeated discharge instructions and plan. I have given the patient opportunity to ask any additional questions. Scribe Attestation: Documented by Fletcher Hahn, acting as a scribe for Fatou Ayoub PA-C. Provider Scribe Attestation: All medical record entries made by the Scribe were at my direction and personally dictated by me. I have reviewed the chart and agree that the record accurately reflects my personal performance of the history, physical exam, medical decision making, and the department course for this patient. I have also personally directed, reviewed, and agree with the discharge instructions and disposition. Disposition - Clinical Impression Clinical Impression: Alcohol abuse with intoxication - Patient ED Disposition Is Patient to be Admitted: No Counseled Patient/Family Regarding: Studies Performed, Diagnosis, Need For Followup - Disposition Referrals: [facility] [Outside] Disposition: Routine/Home Disposition Time: 06:30 Condition: STABLE Additional Instructions: The emergency medical care you received today was directed towards the acute presenting symptoms. If you were prescribed any medication, please fill it and give as directed. It may take several days for your symptoms to resolve. Return to the Emergency Department at any time if symptoms worsen, do not improve, or if any other problems arise. Please contact your doctor in 2 days for re-evaluation and follow up / or call one of the physicians/clinics you have been referred to that are listed on the Patient Visit Information form that is included in your discharge packet. Bring any paperwork you were given at discharge with you along with any medications to your follow up visit. Our treatment cannot replace ongoing medical care by a primary care provider (PCP) outside of the emergency department. Instructions: Alcohol Abuse and Alcoholism (DC), Effects of Alcohol on Your Health Forms: [employer] (Spanish) Print Language: [facility] Results - Lab Results Lab Results: 06/25/18 06/24/18 06/24/18 01:17 22:04 22:04 WBC 8.0 RBC 4.98 Hgb 15.6 Hct 46.4 MCV 93.1 MCH 31.2 H MCHC 33.5 RDW 13.2 Plt Count 334 MPV 7.4 Neut % (Auto) 65.0 Lymph % (Auto) 20.6 [place] % (Auto) 9.1 Eos % (Auto) 3.8 Baso % (Auto) 1.5 Neut # (Auto) 5.2 Lymph # (Auto) 1.6 [place] # (Auto) 0.7 Eos # (Auto) 0.3 Baso # (Auto) 0.1 Sodium 147 Potassium 3.6 Chloride 108 H Carbon Dioxide 29 Anion Gap 14 BUN 7 L Creatinine 0.6 L Est GFR ( Amer) > 60 Est GFR (Non-Af Amer) > 60 POC Glucose (mg/dL) Random Glucose 108 Calcium 8.9 Total Bilirubin 0.3 AST 72 H ALT 47 Alkaline Phosphatase 102 Total Protein 8.0 Albumin 4.5 Globulin 3.6 Albumin/Globulin Ratio 1.2 Urine Opiates Screen Negative Urine Methadone Screen Negative Ur Barbiturates Screen Negative Ur Phencyclidine Scrn Negative Ur Amphetamines Screen Positive H U Benzodiazepines Scrn Negative U Oth Cocaine Metabols Negative U Cannabinoids Screen Negative Alcohol, Quantitative 470 H* 06/24/18 21:56 WBC RBC Hgb Hct MCV MCH MCHC RDW Plt Count MPV Neut % (Auto) Lymph % (Auto) [place] % (Auto) Eos % (Auto) Baso % (Auto) Neut # (Auto) Lymph # (Auto) [place] # (Auto) Eos # (Auto) Baso # (Auto) Sodium Potassium Chloride Carbon Dioxide Anion Gap BUN Creatinine Est GFR ( Amer) Est GFR (Non-Af Amer) POC Glucose (mg/dL) 91 Random Glucose Calcium Total Bilirubin AST ALT Alkaline Phosphatase Total Protein Albumin Globulin Albumin/Globulin Ratio Urine Opiates Screen Urine Methadone Screen Ur Barbiturates Screen Ur Phencyclidine Scrn Ur Amphetamines Screen U Benzodiazepines Scrn U Oth Cocaine Metabols U Cannabinoids Screen Alcohol, Quantitative
[2018-06-24 22:59] LABS: ALB/GLOB RATIO 1.2 (1.0-2.1); ALBUMIN 4.5 g/dL (3.5-5.0); ALT/SGPT 47 U/L (21-72); AST/SGOT 72 U/L (17-59); BLOOD UREA NITROGEN 7 mg/dl (9-20); CALCIUM 8.9 mg/dL (8.4-10.2); GFR NON-AFRICAN AMERICAN > 60
[2018-06-25] MEDS ORDERED: Sodium Chloride 0.9% 1,000 ML IV ONE (00:48)
[2018-06-25 01:53] LABS: BARBITURATES, UR NEGATIVE (NEGATIVE); BENZODIAZEPINES, UR NEGATIVE (NEGATIVE); OPIATES, UR NEGATIVE (NEGATIVE); PHENCYCLIDINE, UR NEGATIVE (NEGATIVE)
[2018-06-25 05:07] VITALS: RESP 18
[2018-06-25 06:45] VITALS: BP 113/74; PULSE 84; TEMP 97.8
--- NOTE | 2018-06-25 11:05 | CT ---
Date of service: 06/24/2018 PROCEDURE: CT HEAD WITHOUT CONTRAST. HISTORY: poss head injury, intoxicated COMPARISON: May 31, 2018 TECHNIQUE: Axial computed tomography images were obtained through the head/brain without intravenous contrast. Radiation dose: Total exam DLP = 911 mGy-cm. This CT exam was performed using one or more of the following dose reduction techniques: Automated exposure control, adjustment of the mA and/or kV according to patient size, and/or use of iterative reconstruction technique. FINDINGS: HEMORRHAGE: No intracranial hemorrhage. BRAIN: No mass effect or edema. No atrophy or chronic microvascular ischemic changes. VENTRICLES: Unremarkable. No hydrocephalus. CALVARIUM: Unremarkable. PARANASAL SINUSES: Unremarkable as visualized. No significant inflammatory changes. MASTOID AIR CELLS: Unremarkable as visualized. No inflammatory changes. OTHER FINDINGS: No sellar masses are seen. No tonsillar ectopia is noted. Visualized orbits are unremarkable. IMPRESSION: No evidence of recent infarct or intracranial hemorrhage. No extra-axial collections. No skull fracture.
[2018-06-27 12:51] VITALS: O2SAT 94
== END 2018-06-25 06:44 | disposition home or self-care (01) ==
LOC: H.ER 20:06
DX: F10.129 Alcohol abuse with intoxication, unspecified (principal); Y90.8 Blood alcohol level of 240 mg/100 ml or more; Z86.59 Personal history of other mental and behavioral disorders; F90.9 Attention-deficit hyperactivity disorder, unspecified type; R56.9 Unspecified convulsions; I10 Essential (primary) hypertension
CPT/HCPCS: 70450; 80053; 80320; 80324; 80345; 80346; 80349; 80353; 80358; 80361; 82948; 83992; 85025; 96361; 96374; 99284; J2405; J7030; J7040

== ENCOUNTER 2018-07-21 14:08 | Emergency (ER) | payer MEDICAID ==
[2018-07-21 14:08] VITALS: BMI 26.6
[2018-07-21 14:20] VITALS: BP 150/71; PULSE 98; RESP 18; TEMP 98; O2SAT 97
--- NOTE | 2018-07-21 14:46 | ED PDOC ---
HPI: Psych/Substance Abuse Time Seen by Provider: 07/21/18 14:21 Chief Complaint (Nursing): Alcohol Ingestion Chief Complaint (Provider): etoh History Per: Patient, Family (brother) Additional Complaint(s): 37-year-old male presents to emergency room intoxicated. Patient was supposed to meet his brother earlier today but when the brother did not hear from the patient, he went to patient's home and found patient passed out due to intoxication. Ambulance was called and patient was brought here. Patient states he has history of alcohol abuse but was clean for about 4 weeks and relapsed yesterday. Upon arrival to ED patient denies suicidal or homicidal ideation. PMD: none Past Medical History Reviewed: Historical Data, Nursing Documentation, Vital Signs Vital Signs: Last Vital Signs Temp 98 F 07/21/18 14:18 Pulse 98 H 07/21/18 14:18 Resp 18 07/21/18 14:18 BP 150/71 07/21/18 14:18 Pulse Ox 97 07/21/18 14:18 - Medical History PMH: Anxiety, Depression, HTN - Surgical History Surgical History: No Surg Hx - Family History Family History: States: No Known Family Hx - Living Arrangements Living Arrangements: Alone - Social History Current smoker - smoking cessation education provided: No Alcohol: > 2 Drinks/Day Drugs: Denies - Home Medications Home Medications: Ambulatory Orders Medication Instructions Recorded Acamprosate Calcium 2 cap PO TID 07/12/17 Dextroamphetamine/Amphetamine 20 mg PO DAILY 07/12/17 [Adderall Xr 20 mg Capsule] Valerian Root 1 cap PO DAILY 07/12/17 Vitamin B Complex 1 tab PO DAILY 07/12/17 Bupropion HCl [Wellbutrin Sr] 150 mg PO Q12H #30 tab.er.12h 07/13/17 Folic Acid 1 mg PO DAILY #30 tab 07/13/17 Naltrexone [Revia] 50 mg PO DAILY #30 tab 07/13/17 Propranolol [Inderal] 10 mg PO TID #30 tab 07/13/17 Thiamine [Vitamin B1 Tab] 50 mg PO DAILY #30 tab 07/13/17 traZODone [Desyrel] 50 mg PO HS #30 tab 07/13/17 - Allergies Allergies/Adverse Reactions: Allergies Allergy/AdvReac Type Severity Reaction Status Date / Time No Known Allergies Allergy Verified 07/21/18 14:17 Review of Systems ROS Statement: Except As Marked, All Systems Reviewed And Found Negative Psych: Positive for: Suicidal ideation (denies suicidal or homicidal ideation), Other (etoh) Physical Exam - Reviewed Nursing Documentation Reviewed: Yes Vital Signs Reviewed: Yes - Physical Exam Appears: Positive for: Well, Non-toxic, No Acute Distress Skin: Positive for: Normal Color. Negative for: Rash Eye Exam: Positive for: Normal appearance Neck: Positive for: Normal Cardiovascular/Chest: Positive for: Regular Rate, Rhythm Respiratory: Positive for: Normal Breath Sounds. Negative for: Wheezing, Respiratory Distress Extremity: Positive for: Normal ROM Neurologic/Psych: Positive for: Alert, Oriented, Other (intoxicated, answers questions appropriately) - ECG O2 Sat by Pulse Oximetry: 97 Pulse Ox Interpretation: Normal Medical Decision Making Medical Decision Makin37 y/o intoxicated male Patient is intoxicated, vital signs are stable, patient has steady gait. Patient's brother at bedside is willing to assume responsibility of patient given that he is intoxicated, and ensure the patient arrives home safely. Patient is stable for discharge with brother. Disposition - Clinical Impression Clinical Impression: Alcohol intoxication - Patient ED Disposition Is Patient to be Admitted: No Counseled Patient/Family Regarding: Need For Followup - Disposition Referrals: [facility] [Outside] Disposition: Routine/Home Disposition Time: 14:44 Condition: STABLE Additional Instructions: Follow up with primary care doctor. Instructions: Alcohol Abuse and Alcoholism (DC)
== END 2018-07-21 15:16 | disposition home or self-care (01) ==
LOC: H.ER 14:08
DX: F10.129 Alcohol abuse with intoxication, unspecified (principal)